=== PATIENT | male | born 1965 ===

== ENCOUNTER 2016-09-30 07:30 | Inpatient (IN) | payer MEDICARE, BC ==
[2016-09-30 07:35] VITALS: BMI 28.1
--- NOTE | 2016-09-30 07:38 | ED PDOC ---
Arrival/HPI - General Time Seen by Provider: 09/30/16 07:31 Historian: Patient - History of Present Illness Narrative History of Present Illness (Text): 09/30/16 07:44 The patient is a 50 year old male, whose past medical history includes coronary artery disease with stent placement, CABG, AICD placement, COPD, hypertension, PUD, Anxiety, and opioid dependency, who is currently on the heart transplant, is brought into the emergency department via EMS for complaints of chest pain. Patient reports the chest pain is chronic but this morning it was worse than usually so he took his Morphine, but it brought him no relief so he decided to come to the emergency department. Pain is associated with nausea and vomiting. 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 Patient denies any shortness of breath, or other complaints at this time. Patient is requesting 4mg Dilaudid. Rn Clinical Documentation: Dr. Paris Time/Duration: Other (acute on chronic pain) Symptom Onset: Gradual Symptom Course: Worsening Quality: Other Activities at Onset: Rest Modifying Factors (Text): no relief with morphine Context: Home Associated Symptoms (Text): nausea and vomiting Past Medical History - Provider Review Nursing Documentation Reviewed: Yes - Infectious Disease Hx of Infectious Diseases: None - Tetanus Immunization Tetanus Immunization: Unknown - Cardiac Hx Cardiac Disorders: Yes Hx Angina: Yes Hx Hypertension: Yes Hx Internal Defibrillator: Yes (06/2013 aicd) Hx Pacemaker: Yes (06/2013 aicd) Other/Comment: mi /6 months ago,cabg 1 vessel 2009 - Pulmonary Hx Bronchitis: Yes Hx Chronic Obstructive Pulmonary Disease (COPD): Yes - Neurological Hx Neurological Disorder: No - HEENT Hx HEENT Disorder: Yes (sinus problem) - Renal Hx Renal Disorder: No - Endocrine/Metabolic Hx Endocrine Disorders: No - Hematological/Oncological Hx Blood Disorders: No - Integumentary Hx Dermatological Disorder: No - Musculoskeletal/Rheumatological Hx Back Pain: Yes (chronic) Hx Falls: Yes Hx Herniated Disk: Yes (lower back) Other/Comment: laminectomy 2011 - Gastrointestinal Hx Gastroesophageal Reflux: Yes - Genitourinary/Gynecological Hx Genitourinary Disorders: No - Psychiatric Hx Psychophysiologic Disorder: Yes Hx Anxiety: Yes Hx Bipolar Disorder: Yes Hx Substance Use: No - Surgical History Hx Cardiac Catheterization: Yes (28 or 30 pt and lost count) Hx Coronary Stent: Yes (x2) - Anesthesia Hx Anesthesia: Yes Hx Anesthesia Reactions: No - Suicidal Assessment Feels Threatened In Home Enviroment: No Family/Social History - Physician Review Nursing Documentation Reviewed: Yes Family/Social History: Unknown Family HX Smoking Status: Never Smoked Hx Alcohol Use: No Hx Substance Use: No Allergies/Home Meds Allergies/Adverse Reactions: Allergies No Known Allergies Allergy (Verified 03/07/16 09:34) Home Medications: Home Meds Medication Instructions Recorded Confirmed Aspirin [Ecotrin] 81 mg PO DAILY 06/10/16 09/30/16 Ezetimibe [Zetia] 10 mg PO DAILY 06/10/16 09/30/16 Fenofibrate Nanocrystallized 145 mg PO DAILY 06/10/16 09/30/16 [Tricor] Furosemide [Lasix] 20 mg PO BID 06/10/16 09/30/16 HYDROmorphone [Dilaudid] 4 mg PO Q4H 06/10/16 09/30/16 Morphine [Morphine Immediate 30 mg PO BID 06/10/16 09/30/16 Release Tab] Nitroglycerin [Nitrostat] 0.4 mg SL PRN PRN 06/10/16 09/30/16 diaZEpam [Valium] 5 mg PO Q12 06/10/16 09/30/16 Docusate [Colace] 100 mg PO TID 09/30/16 09/30/16 Metoprolol Tartrate [Lopressor] 100 mg PO BID 09/30/16 09/30/16 Review of Systems - Physician Review All systems were reviewed & negative as marked: Yes - Review of Systems Constitutional: absent: Fevers Respiratory: absent: SOB Cardiovascular: Chest Pain Gastrointestinal: Nausea, Vomiting. absent: Abdominal Pain Physical Exam - Physical Exam Narrative Physical Exam (Text): Constitutional: Patient is constantly moaning. Head: Normocephalic. Atraumatic. Eyes: PERRL. ENT: Moist mucous membranes. Neck: Supple. Cardiovascular: Mildly tachycardic rate. Chest: No tenderness. Left chest implantation. Respiratory: Clear to auscultation bilaterally. GI: Soft. Nontender. Nondistended. Back: No CVA tenderness. Musculoskeletal: No tenderness or swelling of extremities. Skin: No rash. Neurologic: Alert, no focal deficit. Vital Signs Reviewed: Yes Vital Signs Temp Pulse Resp BP Pulse Ox 09/30/16 07:35 97.6 F 217 H 22 137/99 H 99 Temperature: Afebrile Blood Pressure: Hypertensive Pulse: Tachycardic Respiratory Rate: Normal Appearance: Positive for: Well-Appearing, Non-Toxic, Comfortable Pain Distress: None Mental Status: Positive for: Alert and Oriented X 3 Medical Decision Making ED Course and Treatment: 09/30/16 07:36 Impression: A 50 year old male with an extensive cardiac history complaining of exacerbation chronic chest pain. Triage vital signs in error, HR not 217. Differential Diagnosis include but are not limited to: ACS, CHF, Chest wall pain Plan: -- EKG -- Chest X-ray -- Labs -- Reassess and disposition Prior Visits: Notes and results from previous visits were reviewed. The patient last presented to the emergency department on 06/10/16 for evaluation of chest pain. Progress Notes: EKG: Ordered, reviewed, and independently interpreted the EKG. Rate : 104 BPM Rhythm : Sinus Rhythm Interpretation : No ST-segment elevations or depressions Comparison : No change from previous EKG on 06/11/[address] Paris pagealysia. 09/30/16 08:14 Patient and family constantly asking for pain medication. I have explained to them that I will discussed it with Dr. Paris, but will give Aspirin and Zofran for now. 09/30/16 08:18 Chest X-ray Impression: As read by emergency department physician, No acute findings. 09/30/16 08:[address] Paris, who is aware. He states to admit the patient to [facility] under the hospitalist service. He recommends initial dose of 2mg dilaudid in ER and states he will order remainder of medication. I have discussed the results and plan with the patient, who expresses understanding. Patient given the opportunity to ask question, all questions were answered and there is agreement with the plan to be admitted to the hospital. Dr. Sari moon. 09/30/16 08:[address] Guo, who is aware and agrees with the plan. She accepts the patient to Telemetry under her services. - Lab Interpretations Lab Results: 09/30/16 07:55 09/30/16 07:55 Lab Results 09/30/16 07:55: Sodium 143, Potassium 4.2, Chloride 104, Carbon Dioxide 26, Anion Gap 17, BUN 18, Creatinine 0.9, Est GFR ( Amer) > 60, Est GFR (Non- Af Amer) > 60, Random Glucose 124 H, Calcium 9.5, Total Bilirubin 0.8, AST 25, ALT 23, Alkaline Phosphatase 50, Total Creatine Kinase 81, Troponin I < 0.01 D , NT-Pro-B Natriuret Pep 331, Total Protein 8.0, Albumin 4.8, Globulin 3.2, Albumin/Globulin Ratio 1.5 09/30/16 07:55: PT 10.6, INR 0.98, APTT 26.8 09/30/16 07:55: WBC 5.6 D, RBC 4.95, Hgb 13.5 L, Hct 40.3 L, MCV 81.4, MCH 27.3 , MCHC 33.5, RDW 14.6 H, Plt Count 291, MPV 9.2, Gran % 53.9, Lymph % (Auto) 33.7, [place] % (Auto) 8.7 H, Eos % (Auto) 3.2, Baso % (Auto) 0.5, Gran # 3.03, Lymph # 1.9, [place] # 0.5, Eos # 0.2, Baso # 0.03 I have reviewed the lab results: Yes - RAD Interpretation Radiology Orders: 09/30/16 07:50 CHEST PORTABLE [RAD] Stat - Medication Orders Current Medication Orders: Discontinued Medications Aspirin (Aspirin) 325 mg PO STAT STA Stop: 09/30/16 08:15 Last Admin: 09/30/16 08:29 Dose: 325 mg Hydromorphone HCl (Dilaudid) 2 mg IVP STAT STA Stop: 09/30/16 08:22 Last Admin: 09/30/16 08:29 Dose: 2 mg Ondansetron HCl (Zofran Inj) 8 mg IVP STAT STA Stop: 09/30/16 08:15 Last Admin: 09/30/16 08:29 Dose: 8 mg - Scribe Statement The provider has reviewed the documentation as recorded by the Annalise May Provider Anmolibe Attestation: All medical record entries made by the Annalise were at my direction and personally dictated by me. I have reviewed the chart and agree that the record accurately reflects my personal performance of the history, physical exam, medical decision making, and the department course for this patient. I have also personally directed, reviewed, and agree with the discharge instructions and disposition. Disposition/Present on Arrival - Present on Arrival Any Indicators Present on Arrival: No History of DVT/PE: No History of Uncontrolled Diabetes: No Urinary Catheter: No History Surgical Site Infection Following: None - Disposition Have Diagnosis and Disposition been Completed?: Yes Diagnosis: Chest pain Disposition: HOSPITALIZED Disposition Time: 08:20 Patient Plan: Admission, Telemetry Condition: GUARDED
[2016-09-30 08:03] LABS: ADD MANUAL DIFF? NO
[2016-09-30 08:06] LABS: BASO # 0.03 K/mm3 (0.0-2.0); BASO % 0.5 % (0.0-3.0); EOS # 0.2 (0.0-0.7); EOS % 3.2 % (1.5-5.0); GRAN # 3.03 (1.4-6.5); GRAN % 53.9 % (50.0-68.0); HEMATOCRIT 40.3 % (42.0-52.0); LYMPH # 1.9 (1.2-3.4); LYMPH % 33.7 % (22.0-35.0); MEAN CELL VOLUME 81.4 fL (80.0-105.0); MEAN CORPUSCULAR HEMOGLOBIN 27.3 pg (25.0-35.0); MEAN CORPUSCULAR HGB CONC 33.5 g/dl (31.0-37.0); MEAN PLATELET VOLUME 9.2 fl (7.0-11.0); MONO # 0.5 (0.1-0.6); MONO % 8.7 % (1.0-6.0); PLATELET COUNT 291 10^3/uL (120.0-450.0); RED CELL DISTRIBUTION WIDTH 14.6 % (11.5-14.5); WHITE BLOOD COUNT 5.6 10^3/ul (4.5-11.0)
[2016-09-30 08:15] LABS: ALB/GLOB RATIO 1.5 (1.1-1.8); ALKALINE PHOSPHATASE 50 U/L (38-133); ALT/SGPT 23 U/L (7-56); AST/SGOT 25 U/L (15-59); BILIRUBIN,TOTAL 0.8 mg/dL (0.2-1.3); BLOOD UREA NITROGEN 18 mg/dL (7-21); CALCIUM 9.5 mg/dL (8.4-10.5); CARBON DIOXIDE 26 mmol/L (21-33); CHLORIDE 104 mmol/L (98-107); GFR AFRICAN-AMERICAN > 60; GLUCOSE,RANDOM 124 mg/dL (70-110); POTASSIUM 4.2 mmol/L (3.6-5.0); SODIUM 143 mmol/L (132-148)
[2016-09-30 08:16] LABS: INR 0.98 (0.93-1.08); PARTIAL THROMBOPLASTIN TIME 26.8 Seconds (23.7-30.8)
[2016-09-30] MEDS ORDERED: HYDROmorphone 2 mg/ml ISec IVP STA (08:21)
[2016-09-30 08:28] LABS: TROPONIN I < 0.01 ng/mL
--- NOTE | 2016-09-30 08:54 | RAD ---
HISTORY: cp COMPARISON: 06/10/2016 FINDINGS: LUNGS: No active pulmonary disease. PLEURA: No significant pleural effusion identified, no pneumothorax apparent. CARDIOVASCULAR: Normal. OSSEOUS STRUCTURES: Sternal wires VISUALIZED UPPER ABDOMEN: Normal. OTHER FINDINGS: Pacemaker IMPRESSION: No active disease.
[2016-09-30] MEDS: Pantoprazole 40 mg EC Tab PO SCH (10:09)
[2016-09-30] MEDS: Morphine 30 mg SR Tab PO SCH ×2 (10:09→23:06)
[2016-09-30] MEDS: Metoprolol Succinate 100 mg XL Tab PO SCH ×2 (10:09→17:17)
--- NOTE | 2016-09-30 10:18 | CON ---
DATE: 09/30/2016 INDICATIONS: Chest pain, back pain, dyspnea, flank pain. HISTORY OF PRESENT ILLNESS: This is a 50-year-old man well known to me with severe cardiac problems, chronic pain including back pain, chest pain and recently flank pain with worsening chest pain, dysp amy on exertion, inability to perform even minimal activities without recurring symptoms. He is on a cardiac transplant list at [place]. He came in because of continuing pain and need for IV Dilau did. In addition to back pain, chest pain and flank pain, he has dyspnea on exertion, orthopnea, fatigue. No palpitations, syncope, vertigo, edema, claudication, fever, chills, cough, sputum production, hem optysis, abdominal pain, nausea, vomiting, diarrhea, constipation, melena. He has had recent vomitin g. He has had mild head trauma due to a fall recently with a scalp bruise. PAST MEDICAL HISTORY: Complex. He has known severe coronary artery disease and has undergone multip le coronary interventions, predominantly at [facility]. He has had myocardial infarc tion, severe LV dysfunction, ICD implantation which is followed at [place]. He has severe discog enic disease and chronic back pain which is often indistinguishable from chest pain, both are very se jesica. He is seen by Dr. Bunn and also by pain specialists at [place]. He has a history of hy perlipidemia, peptic ulcer disease, gastric ulcer. There is no history of rheumatic fever, recent co ngestive heart failure, gout, diabetes, stroke, TIA. MEDICATIONS: At this time include Ranexa, Colace, Dilaudid p.o., aspirin, Effient, Imdur, Lasix, Lip itor, metoprolol, MiraLax, morphine sulfate extended release, Protonix, Tricor, Valium, lisinopril an d Zetia. ALLERGIES: There are no known medication allergies. 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 He lives at home with his and family. Rafa beasley is a nonsmoker. He does not drink alcohol. FAMILY HISTORY: Noncontributory. REVIEW OF SYSTEMS: A 10-point review of systems is otherwise unremarkable except as noted above. PHYSICAL EXAMINATION: GENERAL: He is a well-developed, ill-appearing male complaining of diffuse body aches, chest pain, s itting on a stretcher in the Emergency Room accompanied by his . VITAL SIGNS: He is in sinus rhythm at 104 beats per minute. He is afebrile. Blood pressure 137/99, respirations 22, O2 sat 99% on room air. HEENT: Reveals no neck vein distention, thyromegaly, or carotid bruits. Mucous membranes are moist. Conjunctivae are pink. NECK: Supple. CHEST: Lung fontanez clear. HEART: Revealed normal first and second heart sounds. There is a soft systolic murmur along the lef t sternal border. ABDOMEN: Soft. Bowel sounds are present. No mass, organomegaly, tenderness, rebound, guarding, CVA tenderness or palpable abdominal aortic aneurysm. EXTREMITIES: Revealed no cyanosis, clubbing, or edema. NEUROLOGIC: He is awake, alert and oriented. SKIN: Warm and dry. No rash or cellulitis. PSYCHIATRIC: Normal as to mood and affect. LABORATORY AND IMAGING: An EKG demonstrates sinus tachycardia with nonspecific ST-wave changes. A c hest x-ray is a portable study. It reveals no active disease. Hemoglobin 13.5, hematocrit 40.3, whi te count normal, platelet count normal. PT, INR, PTT normal. Electrolytes, BUN, creatinine, blood s ugar normal with a blood sugar of 124. Liver function tests normal. Troponin less than 0.01. BNP 3 31. IMPRESSION: The patient is a 50-year-old man with chronic pain syndrome, severe coronary artery dise ase, multiple coronary interventions, myocardial infarctions, left ventricular dysfunction, implantab le defibrillator with discogenic disease, status post remote laminectomy with severe back pain, also with flank pain, admitted with failure to thrive at home with severe pain, fatigue, dyspnea on exerti on and inability to participate in any activities of living. At this time, we will give him IV Dilaudid to control his pain. We will get serial EKGs and enzymes to rule out myocardial infarction. He is on the transplant list at [facility] where he also gets coronary interventions and electrophysiology followup. I will make arrangements for tra nsfer to Dr. Mike Mcnamara if he will accept him for reevaluation and cardiac transplantation or other c ardiac intervention as indicated. At this time, I will continue his usual medications. I have discu ssed this with the patient and his at length. They are in agreement. I will follow along with you. I will make additional recommendations based on his clinical course. Kvng Paris MD cc: [id number] TT: 09/30/2016 10:18:18 Confirmation # [id number] Dictation # [id number] tn
--- NOTE | 2016-09-30 10:31 | CT ---
PROCEDURE: CT HEAD WITHOUT CONTRAST. HISTORY: head trauma COMPARISON: None available. TECHNIQUE: Axial computed tomography images were obtained through the head/brain without intravenous contrast. Radiation dose: Total exam DLP = 677 mGy-cm. This CT exam was performed using one or more of the following dose reduction techniques: Automated exposure control, adjustment of the mA and/or kV according to patient size, and/or use of iterative reconstruction technique. FINDINGS: HEMORRHAGE: No intracranial hemorrhage. BRAIN: No mass effect or edema. No atrophy or chronic microvascular ischemic changes. VENTRICLES: Unremarkable. No hydrocephalus. CALVARIUM: Unremarkable. PARANASAL SINUSES: Unremarkable as visualized. No significant inflammatory changes. MASTOID AIR CELLS: Unremarkable as visualized. No inflammatory changes. OTHER FINDINGS: None. IMPRESSION: No acute findings
[2016-09-30] MEDS ORDERED: HYDROmorphone 2 mg/ml ISec ONE (10:38)
[2016-09-30] MEDS: HYDROmorphone 2 mg/ml ISec IVP PRN ×5 (10:42→20:31)
[2016-09-30 11:04] LABS: URINE APPEARANCE CLEAR (CLEAR); URINE BILIRUBIN NEGATIVE (NEGATIVE); URINE BLOOD NEGATIVE (NEGATIVE); URINE COLOR YELLOW (YELLOW); URINE GLUCOSE (UA) NEGATIVE (NEGATIVE); URINE KETONE NEGATIVE (NEGATIVE); URINE LEUKOCYTE ESTERASE NEGATIVE Leu/uL (NEGATIVE); URINE PROTEIN NEGATIVE mg/dL (<30 mg/dL); URINE UROBILINOGEN 0.2 E.U./dL (<1 E.U./dL)
--- NOTE | 2016-09-30 12:14 | CP.PCM.HP ---
<Herson Morales - Last Filed: 09/30/16 16:44> History of Present Illness - History of Present Illness History of Present Illness: 50 y/o M with PMH of severe CAD with stent placement and CABG, AICD placement, COPD, HTN, PUD, anxiety, and opioid dependency presents to the ED with complaints of chest pain and SOB on exertion. Patient reports becoming short of breath even with simple body movements (i.e. raising his arms). Patient states he is on cardiac transplant list at [facility]. Patient states his chronic chest pain is something he has dealt with for a while, however the pain these pst few days have been quite severe and he decided to report to ED. At time of examination patient denied palpitations, fever, chills. nausea/ vomiting. Patient has a skin abrasion along his scalp, when questioned about it he states he fell and hit his head along wall. Patient denies headache/dizziness, changes in vision. As per patient, Dr. Paris has recommended he be transferred to [facility] for further work up. Present on Admission - Present on Admission Any Indicators Present on Admission: No Review of Systems - Review of Systems Review of Systems: 12 pt ROS obtained, unremarkable; except as stated in HPI Past Patient History - Infectious Disease Hx of Infectious Diseases: None - Tetanus Immunizations Tetanus Immunization: Unknown - Past Social History Smoking Status: Never Smoked - CARDIAC Hx Cardiac Disorders: Yes Hx Angina: Yes Hx Hypertension: Yes Hx Internal Defibrillator: Yes (06/2013 aicd) Hx Pacemaker: Yes (06/2013 aicd) Other/Comment: mi /6 months ago,cabg 1 vessel 2009 - PULMONARY Hx Bronchitis: Yes Hx Chronic Obstructive Pulmonary Disease (COPD): Yes - NEUROLOGICAL Hx Neurological Disorder: No - HEENT Hx HEENT Problems: Yes (sinus problem) - RENAL Hx Chronic Kidney Disease: No - ENDOCRINE/METABOLIC Hx Endocrine Disorders: No - HEMATOLOGICAL/ONCOLOGICAL Hx Blood Disorders: No - INTEGUMENTARY Hx Dermatological Problems: No - MUSCULOSKELETAL/RHEUMATOLOGICAL Hx Back Pain: Yes (chronic) Hx Falls: Yes Hx Herniated Disk: Yes (lower back) Other/Comment: laminectomy 2011 - GASTROINTESTINAL Hx Gastroesophageal Reflux: Yes - GENITOURINARY/GYNECOLOGICAL Hx Genitourinary Disorders: No - PSYCHIATRIC Hx Psychophysiologic Disorder: Yes Hx Anxiety: Yes Hx Bipolar Disorder: Yes Hx Substance Use: No - SURGICAL HISTORY Hx Cardiac Catheterization: Yes (28 or 30 pt and lost count) Hx Coronary Stent: Yes (x2) - ANESTHESIA Hx Anesthesia: Yes Hx Anesthesia Reactions: No Meds Allergies/Adverse Reactions: Allergies Allergy/AdvReac Type Severity Reaction Status Date / Time No Known Allergies Allergy Verified 03/07/16 09:34 Physical Exam - Constitutional Appears: No Acute Distress, Chronically Ill - Head Exam Head Exam: NORMOCEPHALIC - Eye Exam Eye Exam: Normal appearance - ENT Exam ENT Exam: Mucous Membranes Moist - Respiratory Exam Respiratory Exam: absent: Rhonchi, Wheezes - Cardiovascular Exam Cardiovascular Exam: +S1, +S2, Systolic Murmur - GI/Abdominal Exam GI & Abdominal Exam: Soft. absent: Distended, Firm, Guarding, Tenderness - Extremities Exam Extremities exam: Negative for: calf tenderness, pedal edema - Neurological Exam Neurological exam: Alert, Oriented x3 - Psychiatric Exam Psychiatric exam: Normal Mood - Skin Skin Exam: Intact, Warm Results - Vital Signs Recent Vital Signs: Last Vital Signs Temp 98 F 09/30/16 11:06 Pulse 68 09/30/16 11:06 Resp 18 09/30/16 11:06 BP 138/92 H 09/30/16 11:06 Pulse Ox 98 09/30/16 11:06 - Labs Result Diagrams: 09/30/16 07:55 09/30/16 07:55 Labs: Laboratory Results - last 24 hr 09/30/16 09/30/16 10:50 10:50 Urine Color Yellow Urine Appearance Clear Urine pH 7.0 Ur Specific Anderson 1.015 Urine Protein Negative Urine Glucose (UA) Negative Urine Ketones Negative Urine Blood Negative Urine Nitrate Negative Urine Bilirubin Negative Urine Urobilinogen 0.2 Ur Leukocyte Esterase Negative Urine Opiates Screen Positive H Urine Methadone Screen Negative Ur Barbiturates Screen Negative Ur Phencyclidine Scrn Negative Ur Amphetamines Screen Negative U Benzodiazepines Scrn Positive H U Oth Cocaine Metabols Negative U Cannabinoids Screen Negative Assessment & Plan - Assessment and Plan (Free Text) Assessment: 50M presents to the ED with complaints of chest pain and shortness of breath on exertion, with scalp abrasion 2/2 to fall at home. Plan: 1. Chest pain, chronic -EKG -CXR: No acute findings -Serial troponins: x1 negative -Dilaudid -Patient to be transferred to [facility] for further work up 2. Head trauma, Scalp abrasion -F/u MRI 3. HTN -Lisinopril -Isosorbide -Metoprolol -Lasix 4. hyperlipidemia -Lipitor -fenofibrate -ezetimibe 5. Chronic back pain -Morphine 30mg PO 6. DVT/GI ppx -SCDs -Lovenox -Protonix Assesment and plan discussed with attending <Linda Guo MD - Last Filed: 10/01/16 16:32> Results - Vital Signs Recent Vital Signs: Last Vital Signs Temp 98.4 F 10/01/16 12:00 Pulse 74 10/01/16 12:00 Resp 20 10/01/16 12:00 BP 103/69 10/01/16 12:00 Pulse Ox 97 10/01/16 06:00 - Labs Result Diagrams: 10/01/16 05:50 10/01/16 05:50 Labs: Laboratory Results - last 24 hr 09/30/16 10/01/16 10/01/16 16:54 05:50 05:50 WBC 7.6 D RBC 4.98 Hgb 13.4 L Hct 40.6 L MCV 81.5 MCH 26.9 MCHC 33.0 RDW 14.7 H Plt Count 267 MPV 9.3 Sodium Potassium Chloride Carbon Dioxide Anion Gap BUN Creatinine Est GFR ( Amer) Est GFR (Non-Af Amer) Random Glucose Calcium Troponin I < 0.01 0.01 10/01/16 05:50 WBC RBC Hgb Hct MCV MCH MCHC RDW Plt Count MPV Sodium 138 Potassium 3.7 Chloride 101 Carbon Dioxide 25 Anion Gap 16 BUN 20 Creatinine 1.0 Est GFR ( Amer) > 60 Est GFR (Non-Af Amer) > 60 Random Glucose 78 Calcium 9.3 Troponin I Attending/Attestation - Attestation I have personally seen and examined this patient.: Yes I have fully participated in the care of the patient.: Yes I have reviewed all pertinent clinical information: Yes Notes (Text): 10/01/16 16:29 Patient was seen and examined with medical reimbursement manager .Agreed with resident assessment and plan. 50 y/o M with PMH of severe CAD with stent placement and CABG, AICD placement, COPD, HTN, PUD, anxiety, and opioid dependency presents to the ED with complaints of chest pain and SOB on exertion.Patient is on heart transplant list , and he is on maximum anti anginal therapy.His EKG is negative for new ischemic changes, troponins are normal , cardiology is planning for transfer patient to [facility].We will get serial cardiac marker, he has been started on IV hydromorphone by cardiology.He has history of fall athome.CT head is negative. Management plan was discussed in detail with patient Education was provided.
[2016-09-30] MEDS ORDERED: Pneumococcal 23-Valent Vaccine IM ONE (13:15)
[2016-09-30] MEDS: guaiFENesin 600 mg ER Tab PO SCH (17:17)
--- NOTE | 2016-10-01 01:42 | CARD ---
APPROVED REPORT EKG Measurement Heart [id number] AL [id number] <Conclusion> Sinus tachycardia Cannot rule out Inferior infarct, age undetermined Abnormal ECG
[2016-10-01] MEDS: HYDROmorphone 2 mg/ml ISec IVP PRN ×8 (05:10→23:39)
[2016-10-01 07:51] LABS: HEMATOCRIT 40.6 % (42.0-52.0); MEAN CELL VOLUME 81.5 fL (80.0-105.0); MEAN CORPUSCULAR HEMOGLOBIN 26.9 pg (25.0-35.0); MEAN PLATELET VOLUME 9.3 fl (7.0-11.0); RED CELL DISTRIBUTION WIDTH 14.7 % (11.5-14.5); WHITE BLOOD COUNT 7.6 10^3/ul (4.5-11.0)
[2016-10-01 07:53] LABS: BLOOD UREA NITROGEN 20 mg/dL (7-21); CALCIUM 9.3 mg/dL (8.4-10.5); CARBON DIOXIDE 25 mmol/L (21-33); CHLORIDE 101 mmol/L (98-107); GFR AFRICAN-AMERICAN > 60; GLUCOSE,RANDOM 78 mg/dL (70-110); POTASSIUM 3.7 mmol/L (3.6-5.0); SODIUM 138 mmol/L (132-148)
[2016-10-01] MEDS: guaiFENesin 600 mg ER Tab PO SCH ×2 (10:11→18:24)
[2016-10-01] MEDS: Enoxaparin 40 mg Syringe SC SCH (10:12)
[2016-10-01] MEDS: Pantoprazole 40 mg EC Tab PO SCH (10:12)
[2016-10-01] MEDS: Morphine 30 mg SR Tab PO SCH ×2 (10:14→23:18)
[2016-10-01] MEDS: Metoprolol Succinate 100 mg XL Tab PO SCH ×2 (10:17→18:25)
--- NOTE | 2016-10-01 11:20 | PN ---
DATE: 10/01/2016 SUBJECTIVE: The patient is seen lying in bed on telemetry. He continues to have intermittent rest c hest pain. He awaits transfer to [facility] for further evaluation. He continues to have intractable pain. MEDICATIONS: Include aspirin, Dilaudid, Effient 10 mg daily, Imdur 60 mg daily, Lasix 20 mg b.i.d., Lipitor 80 mg b.i.d., Lovenox, morphine sulfate, Mucinex, Protonix, Toprol-XL 100 mg b.i.d., Tricor 1 45 mg daily, Valium, Zestril 10 mg daily, Zetia 10 mg daily. OBJECTIVE: GENERAL: He is a middle-aged man who appears chronically ill. VITAL SIGNS: His blood pressure is 120/80 with a pulse of 76 and sinus, respirations are 14. He is afebrile. HEENT: No JVD. CHEST: A few scattered rhonchi. HEART: PMI displaced laterally with soft tones noted. ABDOMEN: Soft, nontender, normoactive bowel sounds. EXTREMITIES: No edema. DIAGNOSTIC DATA: Cardiac enzymes are negative. Potassium 3.7, BUN and creatinine are 20 and 1.0. H emoglobin and hematocrit are 13.4 and 40.6, white count 7.6, platelet count 267,000. IMPRESSION: 1. Chronic intractable angina despite prior bypass surgery and multiple cardiac interventions. 2. Severe left ventricular dysfunction. 3. Status post implantable cardioverter-defibrillator implant. 4. Cervical and lumbar disk disease. RECOMMENDATIONS: His current medications will continue. Analgesic therapy will be continued for now as this appears to be the only thing that controls his pain with any effectiveness. [facility] has been contacted for possible transfer and further evaluation. Ultimately transplant or LVAD placemen t may be his best option. We will continue to follow along and make further recommendations as appro priate. Bertram Uribe MD cc: [id number] TT: 10/01/2016 11:19:18 Confirmation # [id number] Dictation # [id number] mn
--- NOTE | 2016-10-01 13:04 | CP.PCM.PN ---
<Herson Morales - Last Filed: 10/01/16 13:58> Subjective - Date & Time of Evaluation Date of Evaluation: 10/01/16 Time of Evaluation: 07:30 - Subjective Subjective: Patient seen and examined. No acute events over night. Patient still complaining of chronic chest pain. Denies headche/dizziness, n/v, abdominal pain , dysuria. Objective - Vital Signs/Intake and Output Vital Signs (last 24 hours): Temp Pulse Resp BP Pulse Ox 98 F 78 18 120/80 97 10/01/16 06:00 10/01/16 10:17 10/01/16 06:00 10/01/16 10:17 10/01/16 06:00 Intake and Output: 10/01/16 10/01/16 06:59 18:59 Intake Total 120 Output Total 350 Balance -230 - Medications Medications: Current Medications Aspirin (Aspirin Chewable) 81 mg PO DAILY [facility] Last Admin: 10/01/16 10:12 Dose: 81 mg Atorvastatin Calcium (Lipitor) 80 mg PO DIN [facility] Last Admin: 09/30/16 17:17 Dose: 80 mg Diazepam (Valium) 5 mg PO BID PRN; Protocol PRN Reason: Pain, severe (8-10) Stop: 10/02/16 10:00 Docusate Sodium (Colace) 100 mg PO TID [facility] Last Admin: 10/01/16 10:12 Dose: 100 mg Ezetimibe (Zetia) 10 mg PO DAILY [facility] Last Admin: 09/30/16 10:42 Dose: 10 mg Enoxaparin Sodium (Lovenox) 40 mg SC DAILY [facility] PRN Reason: Protocol Last Admin: 10/01/16 10:12 Dose: 40 mg Fenofibrate (Tricor) 145 mg PO DAILY [facility] Last Admin: 10/01/16 10:12 Dose: 145 mg Furosemide (Lasix) 20 mg PO BID [facility] Last Admin: 10/01/16 10:12 Dose: 20 mg Guaifenesin (Mucinex La) 600 mg PO BID [facility] Last Admin: 10/01/16 10:11 Dose: 600 mg Hydromorphone HCl (Dilaudid) 2 mg IVP Q2H PRN PRN Reason: Pain, severe (8-10) Last Admin: 10/01/16 12:50 Dose: 2 mg Hydromorphone HCl (Dilaudid) 4 mg PO Q4H [facility] Last Admin: 10/01/16 10:18 Dose: Not Given Isosorbide Mononitrate (Imdur) 60 mg PO DAILY [facility] Last Admin: 10/01/16 10:12 Dose: 60 mg Lisinopril (Zestril) 10 mg PO DAILY [facility] Last Admin: 10/01/16 10:14 Dose: 10 mg Metoprolol Succinate (Toprol Xl) 100 mg PO BID [facility] Last Admin: 10/01/16 10:17 Dose: 100 mg Morphine Sulfate (Morphine Extended Release Tab) 30 mg PO Q12 [facility] Last Admin: 10/01/16 10:14 Dose: 30 mg Ondansetron HCl (Zofran Inj) 4 mg IVP Q6H PRN PRN Reason: Nausea/Vomiting Last Admin: 10/01/16 12:48 Dose: 4 mg Pantoprazole Sodium (Protonix Ec Tab) 40 mg PO DAILY [facility] Last Admin: 10/01/16 10:12 Dose: 40 mg Prasugrel (Effient) 10 mg PO DAILY [facility] Last Admin: 10/01/16 10:11 Dose: 10 mg - Labs Labs: 10/01/16 05:50 10/01/16 05:50 PT 10.6 Seconds (9.9-11.8) 09/30/16 07:55 INR 0.98 (0.93-1.08) 09/30/16 07:55 APTT 26.8 Seconds (23.7-30.8) 09/30/16 07:55 - Constitutional Appears: Chronically Ill - Head Exam Head Exam: NORMOCEPHALIC - Eye Exam Eye Exam: Normal appearance - ENT Exam ENT Exam: Mucous Membranes Moist - Respiratory Exam Respiratory Exam: NORMAL BREATHING PATTERN - Cardiovascular Exam Cardiovascular Exam: +S1, +S2. absent: Tachycardia - GI/Abdominal Exam GI & Abdominal Exam: Soft. absent: Distended, Firm, Guarding, Rigid, Tenderness - Neurological Exam Neurological Exam: Alert, Awake, Oriented x3 - Psychiatric Exam Psychiatric exam: Normal Mood - Skin Skin Exam: Dry, Intact, Warm Assessment and Plan - Assessment and Plan (Free Text) Assessment: 50M presents to the ED with complaints of chest pain and shortness of breath on exertion, with scalp abrasion 2/2 to fall at home. Plan: 1. Chest pain, chronic -EKG: Sinus tachycardia -CXR: No acute findings -Serial troponins: x2 negative -Dilaudid -Awaiting transferred to [facility] for further work up 2. Head trauma, Scalp abrasion -F/u MRI- no acute findings 3. HTN -Lisinopril -Isosorbide -Metoprolol -Lasix 4. hyperlipidemia -Lipitor -fenofibrate -ezetimibe 5. Chronic back pain -Morphine 30mg PO 6. DVT/GI ppx -SCDs -Lovenox -Protonix Assesment and plan discussed with attending <Linda Guo MD - Last Filed: 10/01/16 16:36> Objective - Vital Signs/Intake and Output Vital Signs (last 24 hours): Temp Pulse Resp BP Pulse Ox 98.4 F 74 20 103/69 97 10/01/16 12:00 10/01/16 12:00 10/01/16 12:00 10/01/16 12:00 10/01/16 06:00 Intake and Output: 10/01/16 10/01/16 06:59 18:59 Intake Total 120 Output Total 350 Balance -230 - Medications Medications: Current Medications Aspirin (Aspirin Chewable) 81 mg PO DAILY [facility] Last Admin: 10/01/16 10:12 Dose: 81 mg Atorvastatin Calcium (Lipitor) 80 mg PO DIN [facility] Last Admin: 09/30/16 17:17 Dose: 80 mg Diazepam (Valium) 5 mg PO BID PRN; Protocol PRN Reason: Pain, severe (8-10) Stop: 10/02/16 10:00 Docusate Sodium (Colace) 100 mg PO TID [facility] Last Admin: 10/01/16 14:25 Dose: 100 mg Ezetimibe (Zetia) 10 mg PO DAILY [facility] Last Admin: 10/01/16 14:25 Dose: 10 mg Enoxaparin Sodium (Lovenox) 40 mg SC DAILY [facility] PRN Reason: Protocol Last Admin: 10/01/16 10:12 Dose: 40 mg Fenofibrate (Tricor) 145 mg PO DAILY [facility] Last Admin: 10/01/16 10:12 Dose: 145 mg Furosemide (Lasix) 20 mg PO BID [facility] Last Admin: 10/01/16 10:12 Dose: 20 mg Guaifenesin (Mucinex La) 600 mg PO BID [facility] Last Admin: 10/01/16 10:11 Dose: 600 mg Hydromorphone HCl (Dilaudid) 2 mg IVP Q2H PRN PRN Reason: Pain, severe (8-10) Last Admin: 10/01/16 12:50 Dose: 2 mg Hydromorphone HCl (Dilaudid) 4 mg PO Q4H [facility] Last Admin: 10/01/16 14:26 Dose: Not Given Isosorbide Mononitrate (Imdur) 60 mg PO DAILY [facility] Last Admin: 10/01/16 10:12 Dose: 60 mg Lisinopril (Zestril) 10 mg PO DAILY [facility] Last Admin: 10/01/16 10:14 Dose: 10 mg Metoprolol Succinate (Toprol Xl) 100 mg PO BID [facility] Last Admin: 10/01/16 10:17 Dose: 100 mg Morphine Sulfate (Morphine Extended Release Tab) 30 mg PO Q12 [facility] Last Admin: 10/01/16 10:14 Dose: 30 mg Ondansetron HCl (Zofran Inj) 4 mg IVP Q6H PRN PRN Reason: Nausea/Vomiting Last Admin: 10/01/16 12:48 Dose: 4 mg Pantoprazole Sodium (Protonix Ec Tab) 40 mg PO DAILY [facility] Last Admin: 10/01/16 10:12 Dose: 40 mg Prasugrel (Effient) 10 mg PO DAILY [facility] Last Admin: 10/01/16 10:11 Dose: 10 mg - Labs Labs: 10/01/16 05:50 10/01/16 05:50 PT 10.6 Seconds (9.9-11.8) 09/30/16 07:55 INR 0.98 (0.93-1.08) 09/30/16 07:55 APTT 26.8 Seconds (23.7-30.8) 09/30/16 07:55 Attending/Attestation - Attestation I have personally seen and examined this patient.: Yes I have fully participated in the care of the patient.: Yes I have reviewed all pertinent clinical information, including history, physical exam and plan: Yes Notes (Text): 10/01/16 16:33 Patient was seen and examined with medical office rep .Agreed with resident assessment and plan. 50 yrs old Male with PMH of severe CAD with stent placement and CABG, AICD placement, COPD, HTN, PUD, anxiety, and opioid dependency presents to the ED with complaints of chest pain and SOB on exertion.Patient is on heart transplant list, and he is on maximum anti anginal therapy.His EKG is negative for new ischemic changes, serial troponins are normal.Patient is still having lot of chest pain, on IV hydromorphone, awaiting for bed at [facility]. Management plan was discussed in detail with patient Education was provided.
[2016-10-02] MEDS: HYDROmorphone 2 mg/ml ISec IVP PRN ×7 (04:22→21:02)
[2016-10-02 06:04] VITALS: O2SAT 98
--- NOTE | 2016-10-02 07:26 | CP.PCM.PN ---
Subjective - Date & Time of Evaluation Date of Evaluation: 10/02/16 Time of Evaluation: 07:00 - Subjective Subjective: Stable on 2R. Still CP but sedated now. Fatigue and weakness. No appetite. V/S noted PE: Lungs: clear Cor.: S1S2 Abd.: soft Ext.: no edema Neuro.: sedated I/O= 480/550 Urine C+S NG Labs noted: trops x3 neg. Objective - Vital Signs/Intake and Output Vital Signs (last 24 hours): Temp Pulse Resp BP Pulse Ox 98.7 F 86 19 101/71 98 10/02/16 06:00 10/02/16 06:00 10/02/16 06:00 10/02/16 06:00 10/02/16 06:00 Intake and Output: 10/02/16 10/02/16 06:59 18:59 Intake Total 360 Output Total 200 Balance 160 - Medications Medications: Current Medications Aspirin (Aspirin Chewable) 81 mg PO DAILY [facility] Last Admin: 10/01/16 10:12 Dose: 81 mg Atorvastatin Calcium (Lipitor) 80 mg PO DIN [facility] Last Admin: 10/01/16 18:25 Dose: 80 mg Diazepam (Valium) 5 mg PO BID PRN; Protocol PRN Reason: Pain, severe (8-10) Stop: 10/02/16 10:00 Docusate Sodium (Colace) 100 mg PO TID [facility] Last Admin: 10/01/16 18:24 Dose: 100 mg Ezetimibe (Zetia) 10 mg PO DAILY [facility] Last Admin: 10/01/16 14:25 Dose: 10 mg Enoxaparin Sodium (Lovenox) 40 mg SC DAILY [facility] PRN Reason: Protocol Last Admin: 10/01/16 10:12 Dose: 40 mg Fenofibrate (Tricor) 145 mg PO DAILY [facility] Last Admin: 10/01/16 10:12 Dose: 145 mg Furosemide (Lasix) 20 mg PO BID [facility] Last Admin: 10/01/16 18:24 Dose: 20 mg Guaifenesin (Mucinex La) 600 mg PO BID [facility] Last Admin: 10/01/16 18:24 Dose: 600 mg Hydromorphone HCl (Dilaudid) 2 mg IVP Q2H PRN PRN Reason: Pain, severe (8-10) Last Admin: 10/02/16 04:22 Dose: 2 mg Hydromorphone HCl (Dilaudid) 4 mg PO Q4H [facility] Last Admin: 10/02/16 06:34 Dose: Not Given Isosorbide Mononitrate (Imdur) 60 mg PO DAILY [facility] Last Admin: 10/01/16 10:12 Dose: 60 mg Lisinopril (Zestril) 10 mg PO DAILY [facility] Last Admin: 10/01/16 10:14 Dose: 10 mg Metoprolol Succinate (Toprol Xl) 100 mg PO BID [facility] Last Admin: 10/01/16 18:25 Dose: 100 mg Morphine Sulfate (Morphine Extended Release Tab) 30 mg PO Q12 [facility] Last Admin: 10/01/16 23:18 Dose: Not Given Ondansetron HCl (Zofran Inj) 4 mg IVP Q6H PRN PRN Reason: Nausea/Vomiting Last Admin: 10/02/16 04:23 Dose: 4 mg Pantoprazole Sodium (Protonix Ec Tab) 40 mg PO DAILY [facility] Last Admin: 10/01/16 10:12 Dose: 40 mg Prasugrel (Effient) 10 mg PO DAILY [facility] Last Admin: 10/01/16 10:11 Dose: 10 mg - Labs Labs: 10/01/16 05:50 10/01/16 05:50 PT 10.6 Seconds (9.9-11.8) 09/30/16 07:55 INR 0.98 (0.93-1.08) 09/30/16 07:55 APTT 26.8 Seconds (23.7-30.8) 09/30/16 07:55 Assessment and Plan - Assessment and Plan (Free Text) Plan: Assessment: Chronic CP and Back Pain Flank Pain CAD/ multiple PCIs/UT/LVD ICD Discogenic Disease HLD PUD/ Opiod Dependency Plan: I spoke with Dr. Mike Vsaquez at [facility]. Await transfer to [facility] for heart transplant re-evaluation. Continue current tx.
[2016-10-02] MEDS: Pantoprazole 40 mg EC Tab PO SCH (09:56)
[2016-10-02] MEDS: guaiFENesin 600 mg ER Tab PO SCH ×2 (09:56→19:01)
[2016-10-02] MEDS: Enoxaparin 40 mg Syringe SC SCH (09:57)
[2016-10-02] MEDS: Morphine 30 mg SR Tab PO SCH (09:57)
[2016-10-02] MEDS: Metoprolol Succinate 100 mg XL Tab PO SCH ×2 (10:00→19:01)
[2016-10-02 10:44] LABS: MEAN CELL VOLUME 81.5 fL (80.0-105.0); MEAN CORPUSCULAR HEMOGLOBIN 26.7 pg (25.0-35.0); MEAN CORPUSCULAR HGB CONC 32.8 g/dl (31.0-37.0); MEAN PLATELET VOLUME 9.2 fl (7.0-11.0); RED CELL DISTRIBUTION WIDTH 14.2 % (11.5-14.5)
[2016-10-02 10:53] LABS: BLOOD UREA NITROGEN 34 mg/dL (7-21); CALCIUM 9.1 mg/dL (8.4-10.5); CARBON DIOXIDE 28 mmol/L (21-33); CHLORIDE 95 mmol/L (98-107); GFR AFRICAN-AMERICAN > 60; GLUCOSE,RANDOM 149 mg/dL (70-110); POTASSIUM 3.7 mmol/L (3.6-5.0); SODIUM 133 mmol/L (132-148)
[2016-10-02 14:04] VITALS: BP 117/72; RESP 20
--- NOTE | 2016-10-02 16:20 | CP.PCM.PN ---
<SammyYasmeen - Last Filed: 10/02/16 16:22> Subjective - Date & Time of Evaluation Date of Evaluation: 10/02/16 Time of Evaluation: 08:50 - Subjective Subjective: Pt seen and evaluated at bedside. Pt reports continued chest pain, and denies N /V, abdominal pain, fever. Reports constipation and urinary retention. Afebrile overnight. Objective - Vital Signs/Intake and Output Vital Signs (last 24 hours): Temp Pulse Resp BP Pulse Ox 98.3 F 89 20 117/72 98 10/02/16 12:00 10/02/16 12:00 10/02/16 12:00 10/02/16 12:00 10/02/16 06:00 Intake and Output: 10/02/16 10/02/16 06:59 18:59 Intake Total 360 Output Total 200 Balance 160 - Medications Medications: Current Medications Aspirin (Aspirin Chewable) 81 mg PO DAILY [facility] Last Admin: 10/02/16 09:56 Dose: 81 mg Atorvastatin Calcium (Lipitor) 80 mg PO DIN [facility] Last Admin: 10/01/16 18:25 Dose: 80 mg Docusate Sodium (Colace) 100 mg PO TID [facility] Last Admin: 10/02/16 14:00 Dose: 100 mg Ezetimibe (Zetia) 10 mg PO DAILY [facility] Last Admin: 10/02/16 09:56 Dose: 10 mg Enoxaparin Sodium (Lovenox) 40 mg SC DAILY [facility] PRN Reason: Protocol Last Admin: 10/02/16 09:57 Dose: 40 mg Fenofibrate (Tricor) 145 mg PO DAILY [facility] Last Admin: 10/02/16 09:56 Dose: 145 mg Furosemide (Lasix) 20 mg PO BID [facility] Last Admin: 10/02/16 10:00 Dose: 20 mg Guaifenesin (Mucinex La) 600 mg PO BID [facility] Last Admin: 10/02/16 09:56 Dose: 600 mg Hydromorphone HCl (Dilaudid) 2 mg IVP Q2H PRN PRN Reason: Pain, severe (8-10) Last Admin: 10/02/16 14:00 Dose: 2 mg Hydromorphone HCl (Dilaudid) 4 mg PO Q4H [facility] Last Admin: 10/02/16 13:58 Dose: Not Given Isosorbide Mononitrate (Imdur) 60 mg PO DAILY [facility] Last Admin: 10/02/16 09:56 Dose: 60 mg Lisinopril (Zestril) 10 mg PO DAILY [facility] Last Admin: 10/02/16 09:59 Dose: 10 mg Metoprolol Succinate (Toprol Xl) 100 mg PO BID [facility] Last Admin: 10/02/16 10:00 Dose: 100 mg Morphine Sulfate (Morphine Extended Release Tab) 30 mg PO Q12 [facility] Last Admin: 10/02/16 09:57 Dose: 30 mg Ondansetron HCl (Zofran Inj) 4 mg IVP Q6H PRN PRN Reason: Nausea/Vomiting Last Admin: 10/02/16 10:03 Dose: 4 mg Pantoprazole Sodium (Protonix Ec Tab) 40 mg PO DAILY [facility] Last Admin: 10/02/16 09:56 Dose: 40 mg Polyethylene Glycol (Miralax) 17 gm PO BID [facility] Prasugrel (Effient) 10 mg PO DAILY [facility] Last Admin: 10/02/16 09:56 Dose: 10 mg - Labs Labs: 10/02/16 10:20 10/02/16 10:20 PT 10.6 Seconds (9.9-11.8) 09/30/16 07:55 INR 0.98 (0.93-1.08) 09/30/16 07:55 APTT 26.8 Seconds (23.7-30.8) 09/30/16 07:55 - Constitutional Appears: Non-toxic, No Acute Distress - Head Exam Head Exam: ATRAUMATIC, NORMOCEPHALIC - Eye Exam Eye Exam: EOMI, Normal appearance - Respiratory Exam Respiratory Exam: Clear to Ausculation Bilateral, NORMAL BREATHING PATTERN - Cardiovascular Exam Cardiovascular Exam: Tachycardia, +S1, +S2 - GI/Abdominal Exam GI & Abdominal Exam: Soft. absent: Tenderness - Exam External exam: absent: Ecchymosis, Erythema - Extremities Exam Extremities Exam: absent: Pedal Edema, Tenderness - Back Exam Back Exam: absent: CVA tenderness (L), CVA tenderness (R) - Neurological Exam Neurological Exam: Alert, Awake - Skin Skin Exam: Intact, Normal Color Assessment and Plan - Assessment and Plan (Free Text) Plan: 50M presents to the ED with complaints of chest pain and shortness of breath on exertion, with scalp abrasion 2/2 to fall at home. Plan: 1. Chest pain, chronic -EKG: Sinus tachycardia -CXR: No acute findings -Serial troponins: x2 negative -Dilaudid -Awaiting transferred to [facility] for further work up 2. Head trauma, Scalp abrasion -F/u MRI- no acute findings 3. HTN -Lisinopril -Isosorbide -Metoprolol -Lasix 4. hyperlipidemia -Lipitor -fenofibrate -ezetimibe 5. Chronic back pain -Morphine 30mg PO 6. DVT/GI ppx -SCDs -Lovenox -Protonix 7. constipation miralax added on today 8. urinary retention bladder scan ordered <Linda Guo MD - Last Filed: 10/02/16 17:39> Objective - Vital Signs/Intake and Output Vital Signs (last 24 hours): Temp Pulse Resp BP Pulse Ox 98.3 F 89 20 117/72 98 10/02/16 12:00 10/02/16 12:00 10/02/16 12:00 10/02/16 12:00 10/02/16 06:00 Intake and Output: 10/02/16 10/02/16 06:59 18:59 Intake Total 360 720 Output Total 200 300 Balance 160 420 - Medications Medications: Current Medications Aspirin (Aspirin Chewable) 81 mg PO DAILY [facility] Last Admin: 10/02/16 09:56 Dose: 81 mg Atorvastatin Calcium (Lipitor) 80 mg PO DIN [facility] Last Admin: 10/01/16 18:25 Dose: 80 mg Docusate Sodium (Colace) 100 mg PO TID [facility] Last Admin: 10/02/16 14:00 Dose: 100 mg Ezetimibe (Zetia) 10 mg PO DAILY [facility] Last Admin: 10/02/16 09:56 Dose: 10 mg Enoxaparin Sodium (Lovenox) 40 mg SC DAILY [facility] PRN Reason: Protocol Last Admin: 10/02/16 09:57 Dose: 40 mg Fenofibrate (Tricor) 145 mg PO DAILY [facility] Last Admin: 10/02/16 09:56 Dose: 145 mg Furosemide (Lasix) 20 mg PO BID [facility] Last Admin: 10/02/16 10:00 Dose: 20 mg Guaifenesin (Mucinex La) 600 mg PO BID [facility] Last Admin: 10/02/16 09:56 Dose: 600 mg Hydromorphone HCl (Dilaudid) 2 mg IVP Q2H PRN PRN Reason: Pain, severe (8-10) Last Admin: 10/02/16 16:34 Dose: 2 mg Hydromorphone HCl (Dilaudid) 4 mg PO Q4H [facility] Last Admin: 10/02/16 13:58 Dose: Not Given Isosorbide Mononitrate (Imdur) 60 mg PO DAILY [facility] Last Admin: 10/02/16 09:56 Dose: 60 mg Lisinopril (Zestril) 10 mg PO DAILY [facility] Last Admin: 10/02/16 09:59 Dose: 10 mg Metoprolol Succinate (Toprol Xl) 100 mg PO BID [facility] Last Admin: 10/02/16 10:00 Dose: 100 mg Morphine Sulfate (Morphine Extended Release Tab) 30 mg PO Q12 [facility] Last Admin: 10/02/16 09:57 Dose: 30 mg Ondansetron HCl (Zofran Inj) 4 mg IVP Q6H PRN PRN Reason: Nausea/Vomiting Last Admin: 10/02/16 10:03 Dose: 4 mg Pantoprazole Sodium (Protonix Ec Tab) 40 mg PO DAILY [facility] Last Admin: 10/02/16 09:56 Dose: 40 mg Polyethylene Glycol (Miralax) 17 gm PO BID [facility] Prasugrel (Effient) 10 mg PO DAILY [facility] Last Admin: 10/02/16 09:56 Dose: 10 mg - Labs Labs: 10/02/16 10:20 10/02/16 10:20 PT 10.6 Seconds (9.9-11.8) 09/30/16 07:55 INR 0.98 (0.93-1.08) 09/30/16 07:55 APTT 26.8 Seconds (23.7-30.8) 09/30/16 07:55 Attending/Attestation - Attestation I have personally seen and examined this patient.: Yes I have fully participated in the care of the patient.: Yes I have reviewed all pertinent clinical information, including history, physical exam and plan: Yes Notes (Text): 10/02/16 17:36 Patient was seen and examined with medical physicist .Agreed with resident assessment and plan. 50 yrs old Male with PMH of severe CAD ,SP CABG,SP multiple cardiac stent AICD placement, COPD, HTN, PUD, anxiety, and opioid dependency presents to the ED with complaints of chest pain and SOB on exertion.Patient is on heart transplant list, and he is on maximum anti anginal therapy.His EKG is negative for new ischemic changes, serial troponins are normal.Patient is still having lot of chest pain, on IV hydromorphone, awaiting for bed at [facility].We will continue current management.Cardiology follow up is appreciated. Management plan was discussed in detail with patient Education was provided.
[2016-10-02] MEDS ORDERED: POLYETHYLENE GLYCOL 3350 17 GM/Dose PACKET PO SCH (18:00)
[2016-10-02 19:05] VITALS: PULSE 64
[2016-10-02 19:23] VITALS: TEMP 97.6
--- NOTE | 2016-10-03 06:46 | CP.PCM.DIS ---
<Yasmeen Christianson - Last Filed: 10/03/16 07:05> Provider - Provider Date of Admission: 09/30/16 08:26 Attending physician: Linda Guo MD Primary care physician: NO PRIMARY CARE PROVIDER Consults: Dr. Paris Time Spent in preparation of Discharge (in minutes): 35 Hospital Course - Lab Results Lab Results: Micro Results 09/30/16 10:50 Urine Urine Culture - Final No Growth (<1,000 CFU/ML) Most Recent Lab Values WBC 5.0 10^3/ul (4.5-11.0) D 10/02/16 10:20 RBC 4.91 10^6/uL (3.5-6.1) 10/02/16 10:20 Hgb 13.1 gm/dL (14.0-18.0) L 10/02/16 10:20 Hct 40.0 % (42.0-52.0) L 10/02/16 10:20 MCV 81.5 fL (80.0-105.0) 10/02/16 10:20 MCH 26.7 pg (25.0-35.0) 10/02/16 10:20 MCHC 32.8 g/dl (31.0-37.0) 10/02/16 10:20 RDW 14.2 % (11.5-14.5) 10/02/16 10:20 Plt Count 248 10^3/uL (120.0-450.0) 10/02/16 10:20 MPV 9.2 fl (7.0-11.0) 10/02/16 10:20 Gran % 53.9 % (50.0-68.0) 09/30/16 07:55 Lymph % (Auto) 33.7 % (22.0-35.0) 09/30/16 07:55 [place] % (Auto) 8.7 % (1.0-6.0) H 09/30/16 07:55 Eos % (Auto) 3.2 % (1.5-5.0) 09/30/16 07:55 Baso % (Auto) 0.5 % (0.0-3.0) 09/30/16 07:55 Gran # 3.03 (1.4-6.5) 09/30/16 07:55 Lymph # 1.9 (1.2-3.4) 09/30/16 07:55 [place] # 0.5 (0.1-0.6) 09/30/16 07:55 Eos # 0.2 (0.0-0.7) 09/30/16 07:55 Baso # 0.03 K/mm3 (0.0-2.0) 09/30/16 07:55 PT 10.6 Seconds (9.9-11.8) 09/30/16 07:55 INR 0.98 (0.93-1.08) 09/30/16 07:55 APTT 26.8 Seconds (23.7-30.8) 09/30/16 07:55 Sodium 133 mmol/L (132-148) 10/02/16 10:20 Potassium 3.7 mmol/L (3.6-5.0) 10/02/16 10:20 Chloride 95 mmol/L (98-107) L 10/02/16 10:20 Carbon Dioxide 28 mmol/L (21-33) 10/02/16 10:20 Anion Gap 14 (10-20) 10/02/16 10:20 BUN 34 mg/dL (7-21) H 10/02/16 10:20 Creatinine 1.1 mg/dL (0.5-1.4) 10/02/16 10:20 Est GFR ( Amer) > 60 10/02/16 10:20 Est GFR (Non-Af Amer) > 60 10/02/16 10:20 Random Glucose 149 mg/dL (70-110) H 10/02/16 10:20 Calcium 9.1 mg/dL (8.4-10.5) 10/02/16 10:20 Total Bilirubin 0.8 mg/dL (0.2-1.3) 09/30/16 07:55 AST 25 U/L (15-59) 09/30/16 07:55 ALT 23 U/L (7-56) 09/30/16 07:55 Alkaline Phosphatase 50 U/L (38-133) 09/30/16 07:55 Total Creatine Kinase 81 U/L (35-230) 09/30/16 07:55 Troponin I 0.01 ng/mL 10/01/16 05:50 NT-Pro-B Natriuret Pep 331 pg/mL (0-450) 09/30/16 07:55 Total Protein 8.0 g/dL (5.8-8.3) 09/30/16 07:55 Albumin 4.8 g/dL (3.0-4.8) 09/30/16 07:55 Globulin 3.2 gm/dL 09/30/16 07:55 Albumin/Globulin Ratio 1.5 (1.1-1.8) 09/30/16 07:55 Urine Color Yellow (YELLOW) 09/30/16 10:50 Urine Appearance Clear (CLEAR) 09/30/16 10:50 Urine pH 7.0 (4.7-8.0) 09/30/16 10:50 Ur Specific [place] 1.015 (1.005-1.035) 09/30/16 10:50 Urine Protein Negative mg/dL (<30 mg/dL) 09/30/16 10:50 Urine Glucose (UA) Negative mg/dL (NEGATIVE) 09/30/16 10:50 Urine Ketones Negative mg/dL (NEGATIVE) 09/30/16 10:50 Urine Blood Negative (NEGATIVE) 09/30/16 10:50 Urine Nitrate Negative (NEGATIVE) 09/30/16 10:50 Urine Bilirubin Negative (NEGATIVE) 09/30/16 10:50 Urine Urobilinogen 0.2 E.U./dL (<1 E.U./dL) 09/30/16 10:50 Ur Leukocyte Esterase Negative Julia/uL (NEGATIVE) 09/30/16 10:50 Urine Opiates Screen Positive (NEGATIVE) H 09/30/16 10:50 Urine Methadone Screen Negative (NEGATIVE) 09/30/16 10:50 Ur Barbiturates Screen Negative (NEGATIVE) 09/30/16 10:50 Ur Phencyclidine Scrn Negative (NEGATIVE) 09/30/16 10:50 Ur Amphetamines Screen Negative (NEGATIVE) 09/30/16 10:50 U Benzodiazepines Scrn Positive (NEGATIVE) H 09/30/16 10:50 U Oth Cocaine Metabols Negative (NEGATIVE) 09/30/16 10:50 U Cannabinoids Screen Negative (NEGATIVE) 09/30/16 10:50 - Hospital Course Hospital Course: 50 y/o M with PMHx of severe CAD with multiple stent placement and CABG, AICD placement, COPD, HTN, PUD, anxiety, and opioid dependency presents to the ED with complaints of chest pain and SOB on exertion. Patient reports becoming short of breath even with simple body movements (i.e. raising his arms). Patient states he is on cardiac transplant list at [facility]. Patient states his chronic chest pain is something he has dealt with for a while, however the pain these pst few days have been quite severe and he decided to report to ED. Patient is on heart transplant list, and he is on maximum anti anginal therapy. His EKG is negative for new ischemic changes, initial troponins is normal, cardiology is planning for transfer patient to [facility]. CT head is negative. Transferred to telemetry for chest pain. On floor, troponins x3 are negative. Constant chest pain controlled by IV hydromorphone by cardiology. Chest pain remained constant during course of admission. Admnistered the following medications for HTN and hyperlipidemia: Lisinopril, Isosorbide, Metoprolol, Lasix, Lipitor, fenofibrate, ezetimibe. D/ C in guarded condition for transfer to care of [facility]. Discharge Exam - Additional Findings Additional findings: See progress note from date of d/c 10/02/2016 Discharge Plan - Follow Up Plan Condition: GUARDED Disposition: Trans to Other Acute Care Hosp Instructions: Chest Pain (ED) Referrals: [facility] [Primary Care Provider] - <Sari AGUIAR,Linda - Last Filed: 10/03/16 08:12> Provider - Provider Date of Admission: 09/30/16 08:26 Attending physician: Linda Guo MD Primary care physician: ZAIN PRIMARY CARE PROVIDER Hospital Course - Lab Results Lab Results: Micro Results 09/30/16 10:50 Urine Urine Culture - Final No Growth (<1,000 CFU/ML) Most Recent Lab Values WBC 5.0 10^3/ul (4.5-11.0) D 10/02/16 10:20 RBC 4.91 10^6/uL (3.5-6.1) 10/02/16 10:20 Hgb 13.1 gm/dL (14.0-18.0) L 10/02/16 10:20 Hct 40.0 % (42.0-52.0) L 10/02/16 10:20 MCV 81.5 fL (80.0-105.0) 10/02/16 10:20 MCH 26.7 pg (25.0-35.0) 10/02/16 10:20 MCHC 32.8 g/dl (31.0-37.0) 10/02/16 10:20 RDW 14.2 % (11.5-14.5) 10/02/16 10:20 Plt Count 248 10^3/uL (120.0-450.0) 10/02/16 10:20 MPV 9.2 fl (7.0-11.0) 10/02/16 10:20 Gran % 53.9 % (50.0-68.0) 09/30/16 07:55 Lymph % (Auto) 33.7 % (22.0-35.0) 09/30/16 07:55 [place] % (Auto) 8.7 % (1.0-6.0) H 09/30/16 07:55 Eos % (Auto) 3.2 % (1.5-5.0) 09/30/16 07:55 Baso % (Auto) 0.5 % (0.0-3.0) 09/30/16 07:55 Gran # 3.03 (1.4-6.5) 09/30/16 07:55 Lymph # 1.9 (1.2-3.4) 09/30/16 07:55 [place] # 0.5 (0.1-0.6) 09/30/16 07:55 Eos # 0.2 (0.0-0.7) 09/30/16 07:55 Baso # 0.03 K/mm3 (0.0-2.0) 09/30/16 07:55 PT 10.6 Seconds (9.9-11.8) 09/30/16 07:55 INR 0.98 (0.93-1.08) 09/30/16 07:55 APTT 26.8 Seconds (23.7-30.8) 09/30/16 07:55 Sodium 133 mmol/L (132-148) 10/02/16 10:20 Potassium 3.7 mmol/L (3.6-5.0) 10/02/16 10:20 Chloride 95 mmol/L (98-107) L 10/02/16 10:20 Carbon Dioxide 28 mmol/L (21-33) 10/02/16 10:20 Anion Gap 14 (10-20) 10/02/16 10:20 BUN 34 mg/dL (7-21) H 10/02/16 10:20 Creatinine 1.1 mg/dL (0.5-1.4) 10/02/16 10:20 Est GFR ( Amer) > 60 10/02/16 10:20 Est GFR (Non-Af Amer) > 60 10/02/16 10:20 Random Glucose 149 mg/dL (70-110) H 10/02/16 10:20 Calcium 9.1 mg/dL (8.4-10.5) 10/02/16 10:20 Total Bilirubin 0.8 mg/dL (0.2-1.3) 09/30/16 07:55 AST 25 U/L (15-59) 09/30/16 07:55 ALT 23 U/L (7-56) 09/30/16 07:55 Alkaline Phosphatase 50 U/L (38-133) 09/30/16 07:55 Total Creatine Kinase 81 U/L (35-230) 09/30/16 07:55 Troponin I 0.01 ng/mL 10/01/16 05:50 NT-Pro-B Natriuret Pep 331 pg/mL (0-450) 09/30/16 07:55 Total Protein 8.0 g/dL (5.8-8.3) 09/30/16 07:55 Albumin 4.8 g/dL (3.0-4.8) 09/30/16 07:55 Globulin 3.2 gm/dL 09/30/16 07:55 Albumin/Globulin Ratio 1.5 (1.1-1.8) 09/30/16 07:55 Urine Color Yellow (YELLOW) 09/30/16 10:50 Urine Appearance Clear (CLEAR) 09/30/16 10:50 Urine pH 7.0 (4.7-8.0) 09/30/16 10:50 Ur Specific [place] 1.015 (1.005-1.035) 09/30/16 10:50 Urine Protein Negative mg/dL (<30 mg/dL) 09/30/16 10:50 Urine Glucose (UA) Negative mg/dL (NEGATIVE) 09/30/16 10:50 Urine Ketones Negative mg/dL (NEGATIVE) 09/30/16 10:50 Urine Blood Negative (NEGATIVE) 09/30/16 10:50 Urine Nitrate Negative (NEGATIVE) 09/30/16 10:50 Urine Bilirubin Negative (NEGATIVE) 09/30/16 10:50 Urine Urobilinogen 0.2 E.U./dL (<1 E.U./dL) 09/30/16 10:50 Ur Leukocyte Esterase Negative Julia/uL (NEGATIVE) 09/30/16 10:50 Urine Opiates Screen Positive (NEGATIVE) H 09/30/16 10:50 Urine Methadone Screen Negative (NEGATIVE) 09/30/16 10:50 Ur Barbiturates Screen Negative (NEGATIVE) 09/30/16 10:50 Ur Phencyclidine Scrn Negative (NEGATIVE) 09/30/16 10:50 Ur Amphetamines Screen Negative (NEGATIVE) 09/30/16 10:50 U Benzodiazepines Scrn Positive (NEGATIVE) H 09/30/16 10:50 U Oth Cocaine Metabols Negative (NEGATIVE) 09/30/16 10:50 U Cannabinoids Screen Negative (NEGATIVE) 09/30/16 10:50 Attending/Attestation - Attestation I have personally seen and examined this patient.: Yes I have fully participated in the care of the patient.: Yes I have reviewed all pertinent clinical information, including history, physical exam and plan: Yes Notes (Text): 10/03/16 08:10 Patient was seen and examined with certified medical aide .Agreed with resident assessment and plan. 50 yrs old Male with PMH of severe CAD ,SP CABG,SP multiple cardiac stent AICD placement, COPD, HTN, PUD, anxiety, and opioid dependency was admitted with worsening chest pain and SOB on exertion.Patient is on heart transplant list, and he is on maximum anti anginal therapy.His EKG was negative for new ischemic changes, serial troponins are normal.Patient was requiring IV hydromorphone in addition to his ani anginal therapy.He was accepted at [facility] and was transferred for high level of care . Management plan was discussed in detail with patient Education was provided.
== END 2016-10-02 22:20 | disposition short-term general hospital (02) | DRG 303 ==
LOC: ED 07:30 → ERH 08:26 → 2RNO 11:15
PROVIDERS: ADMIT Internal Medicine; ATTEND Internal Medicine
DX: I25.119 Atherosclerotic heart disease of native coronary artery with unspecified angina pectoris (principal); Z76.82 Awaiting organ transplant status; F11.20 Opioid dependence, uncomplicated; R62.7 Adult failure to thrive; G89.4 Chronic pain syndrome; E78.5 Hyperlipidemia, unspecified; I10 Essential (primary) hypertension; J44.9 Chronic obstructive pulmonary disease, unspecified; M51.9 Unspecified thoracic, thoracolumbar and lumbosacral intervertebral disc disorder; M50.90 Cervical disc disorder, unspecified, unspecified cervical region; K59.00 Constipation, unspecified; Z87.11 Personal history of peptic ulcer disease; R33.9 Retention of urine, unspecified; S00.01XA Abrasion of scalp, initial encounter; K21.9 Gastro-esophageal reflux disease without esophagitis; I25.2 Old myocardial infarction; W19.XXXA Unspecified fall, initial encounter; Y92.009 Unspecified place in unspecified non-institutional (private) residence as the place of occurrence of the external cause; Z79.82 Long term (current) use of aspirin; Z95.1 Presence of aortocoronary bypass graft; Z95.5 Presence of coronary angioplasty implant and graft; Z95.810 Presence of automatic (implantable) cardiac defibrillator

== ENCOUNTER 2017-08-31 07:43 | Inpatient (IN) | payer MEDICARE, BC ==
[2017-08-31 07:52] VITALS: BMI 20.3
--- NOTE | 2017-08-31 07:57 | ED PDOC ---
Arrival/HPI - General Time Seen by Provider: 08/31/17 07:43 Historian: Patient - History of Present Illness Narrative History of Present Illness (Text): 08/31/17 08:12 51 year old male, whose PMH includes HTN, pacemaker, COPD, cardiac catheterization, and coronary stents, who presents to the emergency department complaining of sharp chest pain, pt staets on transplant list for heart transplant. pt requesting iv hydromorphine 5mg on arrival. No other complaints were made. Bankruptcy Assistant: Dr. Cutler 08/31/17 13:33 Time/Duration: Prior to Arrival Symptom Onset: Sudden Symptom Course: Unchanged Activities at Onset: Light Context: Home Past Medical History - Provider Review Nursing Documentation Reviewed: Yes - Infectious Disease Hx of Infectious Diseases: None - Tetanus Immunization Tetanus Immunization: Unknown - Cardiac Hx Cardiac Disorders: Yes Hx Angina: Yes Hx Hypertension: Yes Hx Internal Defibrillator: Yes (06/2013 aicd) Hx Pacemaker: Yes (06/2013 aicd) Other/Comment: mi 2008/2011/6 months ago,cabg 1 vessel 2009 - Pulmonary Hx Bronchitis: Yes Hx Chronic Obstructive Pulmonary Disease (COPD): Yes - Neurological Hx Neurological Disorder: No - HEENT Hx HEENT Disorder: Yes (sinus problem) - Renal Hx Renal Disorder: No - Endocrine/Metabolic Hx Endocrine Disorders: No - Hematological/Oncological Hx Blood Disorders: No - Integumentary Hx Dermatological Disorder: No - Musculoskeletal/Rheumatological Hx Back Pain: Yes (chronic) Hx Falls: Yes Hx Herniated Disk: Yes (lower back) Other/Comment: laminectomy 2011 - Gastrointestinal Hx Gastroesophageal Reflux: Yes - Genitourinary/Gynecological Hx Genitourinary Disorders: No - Psychiatric Hx Psychophysiologic Disorder: Yes Hx Anxiety: Yes Hx Bipolar Disorder: Yes Hx Substance Use: No - Surgical History Hx Cardiac Catheterization: Yes (28 or 30 pt and lost count) Hx Coronary Stent: Yes (x2) - Anesthesia Hx Anesthesia: Yes Hx Anesthesia Reactions: No - Suicidal Assessment Feels Threatened In Home Enviroment: No Family/Social History - Physician Review Nursing Documentation Reviewed: Yes Family/Social History: Unknown Family HX Smoking Status: Never Smoked Hx Alcohol Use: No Hx Substance Use: No Allergies/Home Meds Allergies/Adverse Reactions: Allergies No Known Allergies Allergy (Verified 08/31/17 07:57) Home Medications: Home Meds Medication Instructions Recorded Confirmed Aspirin [Ecotrin] 81 mg PO DAILY 06/10/16 08/31/17 Fenofibrate Nanocrystallized 145 mg PO DAILY 06/10/16 08/31/17 [Tricor] Furosemide [Lasix] 20 mg PO BID 06/10/16 08/31/17 HYDROmorphone [Dilaudid] 4 mg PO Q4H 06/10/16 08/31/17 Morphine [Morphine Immediate 30 mg PO BID 06/10/16 08/31/17 Release Tab] Nitroglycerin [Nitrostat] 0.4 mg SL PRN PRN 06/10/16 08/31/17 diaZEpam [Valium] 5 mg PO Q12 06/10/16 08/31/17 Docusate [Colace] 100 mg PO TID 09/30/16 08/31/17 Metoprolol Tartrate [Lopressor] 100 mg PO BID 09/30/16 08/31/17 Pregabalin [Lyrica] 50 mg PO BID 08/31/17 08/31/17 Tamsulosin [Flomax] 0.4 mg PO DAILY 08/31/17 08/31/17 tiZANidine [Zanaflex] 4 mg PO BID 08/31/17 08/31/17 Review of Systems - Review of Systems Constitutional: absent: Fevers ENT: absent: Sinus Congestion Respiratory: absent: Cough Cardiovascular: Chest Pain (sharp) Gastrointestinal: Nausea, Vomiting Genitourinary Male: absent: Dysuria Musculoskeletal: Myalgias Skin: absent: Rash Neurological: absent: Headache Endocrine: absent: Diaphoresis Physical Exam Vital Signs Reviewed: Yes Vital Signs Temp Pulse Pulse Resp BP BP Pulse Ox 08/31/17 10:32 84 22 149/77 100 08/31/17 08:10 86 119/79 08/31/17 07:50 97.6 F 100 H 24 119/79 99 Temperature: Afebrile Blood Pressure: Normal Pulse: Tachycardic Respiratory Rate: Normal Appearance: Positive for: Non-Toxic, Ill-Appearing Pain Distress: Mild Mental Status: Positive for: Alert and Oriented X 3 - Systems Exam Head: Present: Atraumatic, Normocephalic Pupils: Present: PERRL Extroacular Muscles: Present: EOMI Conjunctiva: Present: Normal Neck: Present: Normal Range of Motion Respiratory/Chest: Present: Clear to Auscultation, Good Air Exchange. No: Respiratory Distress, Accessory Muscle Use, Wheezes, Rales, Rhonchi Cardiovascular: Present: Regular Rate and Rhythm, Normal S1, S2. No: Murmurs Abdomen: Present: Other (currently vomiting). No: Tenderness, Distention, Peritoneal Signs, Rebound, Guarding Neurological: Present: GCS=15, CN II-XII Intact, Speech Normal Skin: Present: Warm, Dry, Normal Color. No: Rashes Psychiatric: Present: Alert, Oriented x 3, Normal Insight, Normal Concentration Medical Decision Making ED Course and Treatment: 08/31/17 Impression: 51 year old male, who is currently vomiting, complaining of chest pain, vomiting , and general body aches since this morning. Plan: -- EKG -- Chest X-ray -- Labs -- Nitroglycerin and Zofran -- Urinalysis -- Reassess and disposition Progress Notes: 08/31/17 09:00 Chest X-ray: Creator : DR. Garcia, Scar AGUIAR COMPARISON: 09/30/2016 FINDINGS: LUNGS: No active pulmonary disease. PLEURA: No significant pleural effusion identified, no pneumothorax apparent. CARDIOVASCULAR: No radiographic findings to suggest acute or significant cardiovascular disease. Incidental Finding(s): Postoperative changes related to sternotomy. Position/ configuration of pacemaker\AICD device: Satisfactory. OSSEOUS STRUCTURES: No significant abnormalities. VISUALIZED UPPER ABDOMEN: Normal. OTHER FINDINGS: None. IMPRESSION: No active disease. No significant interval change compared to the prior examination(s). 08/31/17 13:34 avised pt will be treated with non narcotics. accepted by dr ariza. - Lab Interpretations Lab Results: 08/31/17 08:05 08/31/17 08:05 Lab Results 08/31/17 08:05: PT 11.9, INR 1.03, APTT 27.7 08/31/17 08:05: Sodium 140, Potassium 3.1 L, Chloride 98, Carbon Dioxide 24, Anion Gap 21 H, BUN 14, Creatinine 0.8, Est GFR ( Amer) > 60, Est GFR ( Non-Af Amer) > 60, Random Glucose 125 H, Calcium 9.4, Magnesium 1.8, Total Bilirubin 0.8, AST 28, ALT 19, Alkaline Phosphatase 58, Lactate Dehydrogenase 443, Total Creatine Kinase 67, Troponin I < 0.01, NT-Pro-B Natriuret Pep 793 H, Total Protein 7.7, Albumin 4.6, Globulin 3.0, Albumin/Globulin Ratio 1.5 08/31/17 08:05: WBC 7.5 D, RBC 4.86, Hgb 13.8 L, Hct 40.4 L, MCV 83.1, MCH 28.4 , MCHC 34.2, RDW 14.9 H, Plt Count 287, MPV 9.4, Gran % 69.0 H, Lymph % (Auto) 23.0, [place] % (Auto) 6.8 H, Eos % (Auto) 0.9 L, Baso % (Auto) 0.3, Gran # 5.17, Lymph # (Auto) 1.7, [place] # (Auto) 0.5, Eos # (Auto) 0.1, Baso # (Auto) 0.02 I have reviewed the lab results: Yes - RAD Interpretation Radiology Orders: 08/31/17 08:07 CHEST PORTABLE [RAD] Stat Mechanist: Radiologist - EKG Interpretation Interpreted by ED Physician: Yes Type: 12 lead EKG - Medication Orders Current Medication Orders: Aspirin (Ecotrin) 81 mg PO DAILY [facility] Last Admin: 08/31/17 11:53 Dose: Not Given Non-Admin Reason: Patient Refused Atorvastatin Calcium (Lipitor) 80 mg PO DIN [facility] Docusate Sodium (Colace) 100 mg PO TID [facility] Last Admin: 08/31/17 13:56 Dose: 100 mg Last Bowel Movement Document 08/31/17 13:56 KL (Rec: 08/31/17 13:56 KL [id number]) Last Bowel Movement Last Bowel Movement 08/31/17 Ezetimibe (Zetia) 10 mg PO DAILY [facility] Last Admin: 08/31/17 12:00 Dose: 10 mg Enoxaparin Sodium (Lovenox) 60 mg SC Q12H [facility] PRN Reason: Protocol Stop: 09/01/17 13:30 Last Admin: 08/31/17 13:55 Dose: 60 mg Subcutaneous Administrations Document 08/31/17 13:55 KL (Rec: 08/31/17 13:55 KL [id number]) Injection Site MAR Injection Site Right Abdomen Charges for Administration # of Subcutaneous Administrations 1 Fenofibrate (Tricor) 145 mg PO DAILY [facility] Last Admin: 08/31/17 12:00 Dose: 145 mg Furosemide (Lasix) 20 mg PO BID [facility] Last Admin: 08/31/17 11:54 Dose: Not Given Non-Admin Reason: Patient Refused Hydromorphone HCl (Dilaudid) 4 mg PO Q4H [facility] Last Admin: 08/31/17 13:55 Dose: [address] [facility] Pain Assessment Document 08/31/17 13:55 KL (Rec: 08/31/17 13:56 [id number] Pain Reassessment Is this a pain reassessment? No Sleep Is patient sleeping during reassessment? No Presence of Pain Presence of Pain Yes Pain Scale Used Pain Scale Used Numeric Location Pain Location Body Site Chest Description Intensity of Pain at present 10 Hydromorphone HCl (Dilaudid) 2 mg IVP Q2H PRN PRN Reason: Pain, severe (8-10) Last Admin: 08/31/17 12:28 Dose: [address] [facility] Pain Assessment Document 08/31/17 12:28 KL (Rec: 08/31/17 12:29 [id number] Pain Reassessment Is this a pain reassessment? No Presence of Pain Presence of Pain Yes Pain Scale Used Pain Scale Used Numeric Location Pain Location Body Site Chest Description Intensity of Pain at present 10 Alleviating Factors/Management Medication Techniques IVP Administration Document 08/31/17 12:28 KL (Rec: 08/31/17 12:29 [id number]) Charges for Administration # of IVP Administrations 1 Re-Assess: [facility] Pain Assessment Document 08/31/17 13:28 KL (Rec: 08/31/17 13:57 KL [id number]) Pain Reassessment Is this a pain reassessment? Yes Presence of Pain Presence of Pain Yes Pain Scale Used Pain Scale Used Numeric Location Pain Location Body Site Chest Description Intensity of Pain at present 9 Potassium Phosphate 15 mmole/ (Sodium Chloride) 255 mls @ 42.5 mls/hr IVPB ONCE ONE Stop: 08/31/17 16:10 Last Admin: 08/31/17 13:58 Dose: 42.5 mls/hr Isosorbide Mononitrate (Imdur) 60 mg PO DAILY [facility] Last Admin: 08/31/17 11:57 Dose: 60 mg Metoprolol Tartrate (Lopressor) 100 mg PO BID [facility] Last Admin: 08/31/17 11:58 Dose: 100 mg MAR Pulse and Blood Pressure Document 08/31/17 11:58 PANCHO (Rec: 08/31/17 11:58 [id number]) Pulse Pulse Rate (60-90) 84 Blood Pressure Blood Pressure (100/60-150/90) 152/93 Morphine Sulfate (Morphine Immediate Release Tab) 30 mg PO BID [facility] Last Admin: 08/31/17 11:54 Dose: Not Given Non-Admin Reason: Patient Refused Non-Formulary Medication (Ranolazine [Ranexa]) 1,000 mg PO BID [facility] Last Admin: 08/31/17 11:55 Dose: Ondansetron HCl (Zofran Inj) 4 mg IVP Q6H PRN PRN Reason: Nausea/Vomiting Pantoprazole Sodium (Protonix Inj) 40 mg IVP DAILY [facility] Last Admin: 08/31/17 11:55 Dose: Not Given Non-Admin Reason: Patient Refused Polyethylene Glycol (Miralax) 17 gm PO DAILY [facility] Last Admin: 08/31/17 11:59 Dose: 17 gm Potassium Chloride (K-Dur 20 Meq Er Tab) 30 meq PO BID [facility] Last Admin: 08/31/17 12:26 Dose: 30 meq Potassium Phos/Sodium Phos (Neutra-Phos) 1 pkt PO TID [facility] Stop: 09/01/17 00:00 Last Admin: 08/31/17 13:56 Dose: 1 pkt Prasugrel (Effient) 10 mg PO DAILY [facility] Last Admin: 08/31/17 11:54 Dose: Not Given Non-Admin Reason: Patient Refused Pregabalin (Lyrica) 50 mg PO BID [facility] Last Admin: 08/31/17 11:54 Dose: Not Given Non-Admin Reason: Patient Refused Tamsulosin HCl (Flomax) 0.4 mg PO DAILY [facility] Last Admin: 08/31/17 11:54 Dose: Not Given Non-Admin Reason: Patient Refused Tizanidine HCl (Zanaflex) 4 mg PO BID [facility] Discontinued Medications Hydromorphone HCl (Dilaudid) 2 mg IVP STAT STA Stop: 08/31/17 09:09 Last Admin: 08/31/17 09:29 Dose: 2 mg MAR Pain Assessment Document 08/31/17 09:29 MR (Rec: 08/31/17 09:30 MR [id number]) Pain Reassessment Is this a pain reassessment? Yes Sleep Is patient sleeping during reassessment? No Presence of Pain Presence of Pain Yes Pain Scale Used Pain Scale Used Numeric Location Left, Right or Bilateral Left Pain Location Body Site Chest Description Description Sharp Intensity of Pain at present 10 Pain Behavior Irritability Facial Grimacing Screaming Aggravating Factors None Alleviating Factors/Management Medication Techniques Alleviating Factors Medication IVP Administration Document 08/31/17 09:29 MR (Rec: 08/31/17 09:30 MR [id number]) Charges for Administration # of IVP Administrations 1 Hydromorphone HCl (Dilaudid) 2 mg IVP Q2H PRN PRN Reason: Pain, severe (8-10) Hydromorphone HCl (Dilaudid) 2 mg IVP Q2H PRN PRN Reason: Pain, severe (8-10) Nitroglycerin (Nitro-Bid 2% Oint) 1 ea TOP STAT STA Stop: 08/31/17 08:12 Last Admin: 08/31/17 08:22 Dose: Not Given Non-Admin Reason: Patient Refused Non-Formulary Medication (Metoprolol Tartrate [Lopressor]) 100 mg PO BID ALEC Ondansetron HCl (Zofran Inj) 4 mg IVP STAT STA Stop: 08/31/17 08:12 Last Admin: 08/31/17 08:22 Dose: 4 mg IVP Administration Document 08/31/17 08:22 (Rec: 08/31/17 08:22 MR [id number]) Charges for Administration # of IVP Administrations 1 Potassium Chloride (K-Dur 20 Meq Er Tab) 40 meq PO STAT STA Stop: 08/31/17 08:41 Last Admin: 08/31/17 09:24 Dose: 40 meq - Scribe Statement The provider has reviewed the documentation as recorded by the Annalise Jacobo Provider Scribe Attestation: All medical record entries made by the Scribe were at my direction and personally dictated by me. I have reviewed the chart and agree that the record accurately reflects my personal performance of the history, physical exam, medical decision making, and the department course for this patient. I have also personally directed, reviewed, and agree with the discharge instructions and disposition. Disposition/Present on Arrival - Present on Arrival Any Indicators Present on Arrival: No History of DVT/PE: No History of Uncontrolled Diabetes: No Urinary Catheter: No History Surgical Site Infection Following: None - Disposition Have Diagnosis and Disposition been Completed?: Yes Diagnosis: Chest pain, Drug-seeking behavior Disposition: HOSPITALIZED Disposition Time: 09:00 Patient Problems: Current Active Problems Problem Status Onset Drug-seeking behavior Acute Chest pain Chronic Condition: STABLE
[2017-08-31] MEDS ORDERED: Nitroglycerin 2% Ointment Foilpak UD TOP STA (08:11)
[2017-08-31 08:39] LABS: ALB/GLOB RATIO 1.5 (1.1-1.8); ALBUMIN 4.6 g/dL (3.0-4.8); ALT/SGPT 19 U/L (7-56); AST/SGOT 28 U/L (17-59); BLOOD UREA NITROGEN 14 mg/dL (7-21); CALCIUM 9.4 mg/dL (8.4-10.5); GFR AFRICAN-AMERICAN > 60; GFR NON-AFRICAN AMERICAN > 60
[2017-08-31 08:40] LABS: BASO # 0.02 K/mm3 (0.0-2.0); BASO % 0.3 % (0.0-3.0); EOS # 0.1 (0.0-0.7); EOS % 0.9 % (1.5-5.0); GRAN # 5.17 (1.4-6.5); HEMOGLOBIN 13.8 g/dL (14.0-18.0); LYMPH # 1.7 (1.2-3.4); MEAN CELL VOLUME 83.1 fl (80.0-105.0); MEAN CORPUSCULAR HEMOGLOBIN 28.4 pg (25.0-35.0); MEAN CORPUSCULAR HGB CONC 34.2 g/dl (31.0-37.0); MEAN PLATELET VOLUME 9.4 fl (7.0-11.0); MONO # 0.5 (0.1-0.6); MONO % 6.8 % (1.0-6.0); RBC 4.86 10^6/uL (3.5-6.1); RED CELL DISTRIBUTION WIDTH 14.9 % (11.5-14.5); WHITE BLOOD COUNT 7.5 10^3/ul (4.5-11.0)
[2017-08-31] MEDS ORDERED: Potassium Chloride 20 mEq ER Tab PO STA (08:40)
[2017-08-31 08:41] LABS: INR 1.03 (0.93-1.08); PARTIAL THROMBOPLASTIN TIME 27.7 Seconds (25.1-36.5); PROTHROMBIN TIME 11.9 SECONDS (9.4-12.5)
[2017-08-31 08:50] LABS: B-TYPE NATRIURETIC PEPTIDE 793 pg/mL (0-450); TROPONIN I < 0.01 ng/mL
--- NOTE | 2017-08-31 08:50 | RAD ---
HISTORY: Chest pain COMPARISON: 09/30/2016 FINDINGS: LUNGS: No active pulmonary disease. PLEURA: No significant pleural effusion identified, no pneumothorax apparent. CARDIOVASCULAR: No radiographic findings to suggest acute or significant cardiovascular disease. Incidental Finding(s): Postoperative changes related to sternotomy. Position/ configuration of pacemaker device: Satisfactory. OSSEOUS STRUCTURES: No significant abnormalities. VISUALIZED UPPER ABDOMEN: Normal. OTHER FINDINGS: None. IMPRESSION: No active disease. No significant interval change compared to the prior examination(s).
--- NOTE | 2017-08-31 09:07 | CP.PCM.HP ---
<Devora Wright - Last Filed: 08/31/17 12:27> History of Present Illness - History of Present Illness History of Present Illness: 51yo male extensive PMHx of CABG, CAD with stents, multiple cardiac catheterizations, AICD, [place], COPD, HTN, back pain, peptic ulcer disease, anxiety disorder presents to [facility] with unrelenting chest pain with associated nausea/ vomiting for 1 week. As per at bedside, patient has chronic pain but has been becoming progressively worse over the past week. He has been waking up with >10/10 chest pain that is sharp in nature and radiates to his upper back. Patient states the pain feels like it is near his ICD but does not feel like it is the ICD firing off. He has also had complaints of SOB and is unable to walk more than 10feet before having to sit down or requires help. Patient has been trying ASA and dilaudid for his chest pain but as they were not improving, he decided to come in. He states that the pain is so bad that it even hurts to talk. He admitted to associated chills, headache, dizziness, palpitations, cough , nausea, multiple episodes of nonbloody nonbilious emesis, urinary retention, constipation, R arm pain, decreased appetite, and weight loss. He denied any subjective fevers and pain/swelling in his legs b/l. As per patient and at bedside, patient is on the list for a heart transplant. PMHx: CABG, CAD with stents, multiple cardiac catheterizations, AICD, [place], COPD, HTN, back pain, peptic ulcer disease, anxiety disorder Past Surgeries: CABG, AICD placement, multiple catheterizations and stent placement Meds: pls see list Allergies: NKDA Fam Hx: [place] (father) DM, HTN Soc Hx: former smoker, denies alcohol use and drug use, lives with family and does not work; denies recent travel/sick contacts; disabled since 2011 PMD: None Cardio: Elkind Pain management: Bunn Present on Admission - Present on Admission Any Indicators Present on Admission: No Review of Systems - Constitutional Constitutional: As Per HPI, Chills, Weight Loss, Weakness. absent: Fever - EENT Eyes: As Per HPI. absent: Blurred Vision Ears: As Per HPI, Dizziness Nose/Mouth/Throat: As Per HPI. absent: Sore Throat - Cardiovascular Cardiovascular: As Per HPI, Chest Pain, Chest Pain with Activity, Dyspnea, Dyspnea on Exertion, Palpitations. absent: Edema, Leg Edema, Pedal Edema - Respiratory Respiratory: As Per HPI, Cough, Dyspnea, Dyspnea on Exertion. absent: Wheezing , Pain on Inspiration, Chest Congestion - Gastrointestinal Gastrointestinal: As Per HPI, Constipation, Nausea, Vomiting. absent: Abdominal Pain, Diarrhea - Genitourinary Genitourinary: As Per HPI, Urinary Hesitance. absent: Dysuria, Hematuria, Pyuria - Musculoskeletal Musculoskeletal: As Per HPI, Back Pain, Radiating Pain into Limb (R arm). absent: Numbness, Tingling - Integumentary Integumentary: As Per HPI. absent: Dry Skin - Neurological Neurological: As Per HPI, Dizziness, Headaches - Endocrine Endocrine: As Per HPI. absent: Polydipsia, Polyphagia, Polyuria - Hematologic/Lymphatic Hematologic: As Per HPI. absent: Easy Bleeding, Easy Bruising, Lymphadenopathy Past Patient History - Infectious Disease Hx of Infectious Diseases: None - Tetanus Immunizations Tetanus Immunization: Unknown - Past Social History Smoking Status: Never Smoked - CARDIAC Hx Cardiac Disorders: Yes Hx Angina: Yes Hx Hypertension: Yes Hx Internal Defibrillator: Yes (06/2013 aicd) Hx Pacemaker: Yes (06/2013 aicd) Other/Comment: mi 2008/2011/6 months ago,cabg 1 vessel 2009 - PULMONARY Hx Bronchitis: Yes Hx Chronic Obstructive Pulmonary Disease (COPD): Yes - NEUROLOGICAL Hx Neurological Disorder: No - HEENT Hx HEENT Problems: Yes (sinus problem) - RENAL Hx Chronic Kidney Disease: No - ENDOCRINE/METABOLIC Hx Endocrine Disorders: No - HEMATOLOGICAL/ONCOLOGICAL Hx Blood Disorders: No - INTEGUMENTARY Hx Dermatological Problems: No - MUSCULOSKELETAL/RHEUMATOLOGICAL Hx Back Pain: Yes (chronic) Hx Falls: Yes Hx Herniated Disk: Yes (lower back) Other/Comment: laminectomy 2011 - GASTROINTESTINAL Hx Gastroesophageal Reflux: Yes - GENITOURINARY/GYNECOLOGICAL Hx Genitourinary Disorders: No - PSYCHIATRIC Hx Psychophysiologic Disorder: Yes Hx Anxiety: Yes Hx Bipolar Disorder: Yes Hx Substance Use: No - SURGICAL HISTORY Hx Cardiac Catheterization: Yes (28 or 30 pt and lost count) Hx Coronary Stent: Yes (x2) - ANESTHESIA Hx Anesthesia: Yes Hx Anesthesia Reactions: No Meds Allergies/Adverse Reactions: Allergies Allergy/AdvReac Type Severity Reaction Status Date / Time No Known Allergies Allergy Verified 08/31/17 07:57 Physical Exam - Constitutional Appears: In Acute Distress, Chronically Ill - Head Exam Head Exam: ATRAUMATIC, NORMAL INSPECTION, NORMOCEPHALIC - Eye Exam Eye Exam: EOMI, Normal appearance, PERRL. absent: Conjunctival injection, Scleral icterus Pupil Exam: NORMAL ACCOMODATION - ENT Exam ENT Exam: Mucous Membranes Dry - Neck Exam Neck exam: Positive for: Normal Inspection - Respiratory Exam Respiratory Exam: Clear to Auscultation Bilateral, NORMAL BREATHING PATTERN. absent: Accessory Muscle Use, Chest Wall Tenderness, Rales, Rhonchi, Wheezes, Respiratory Distress - Cardiovascular Exam Cardiovascular Exam: REGULAR RHYTHM, RRR, +S1, +S2. absent: Bradycardia, Tachycardia - GI/Abdominal Exam GI & Abdominal Exam: Normal Bowel Sounds, Soft. absent: Firm, Guarding, Rigid, Tenderness - Rectal Exam Rectal Exam: Deferred - Extremities Exam Extremities exam: Positive for: normal capillary refill, normal inspection, pedal pulses present. Negative for: pedal edema - Neurological Exam Neurological exam: Alert, CN II-XII Intact, Oriented x3 - Psychiatric Exam Psychiatric exam: Anxious - Skin Skin Exam: Dry, Intact, Pallor, Pallor, Warm Results - Vital Signs Recent Vital Signs: Last Vital Signs Temp 97.6 F 08/31/17 07:50 Pulse 86 08/31/17 08:10 Resp 24 08/31/17 07:50 BP 119/79 08/31/17 08:10 Pulse Ox 99 08/31/17 07:50 - Labs Result Diagrams: 08/31/17 08:05 08/31/17 08:05 Labs: Laboratory Results - last 24 hr 08/31/17 08/31/17 08/31/17 08:05 08:05 08:05 WBC 7.5 D RBC 4.86 Hgb 13.8 L Hct 40.4 L MCV 83.1 MCH 28.4 MCHC 34.2 RDW 14.9 H Plt Count 287 MPV 9.4 Gran % 69.0 H Lymph % (Auto) 23.0 Wise % (Auto) 6.8 H Eos % (Auto) 0.9 L Baso % (Auto) 0.3 Gran # 5.17 Lymph # (Auto) 1.7 Wise # (Auto) 0.5 Eos # (Auto) 0.1 Baso # (Auto) 0.02 PT 11.9 INR 1.03 APTT 27.7 Sodium 140 Potassium 3.1 L Chloride 98 Carbon Dioxide 24 Anion Gap 21 H BUN 14 Creatinine 0.8 Est GFR ( Amer) > 60 Est GFR (Non-Af Amer) > 60 Random Glucose 125 H Calcium 9.4 Magnesium 1.8 Total Bilirubin 0.8 AST 28 ALT 19 Alkaline Phosphatase 58 Lactate Dehydrogenase 443 Total Creatine Kinase 67 Troponin I < 0.01 NT-Pro-B Natriuret Pep 793 H Total Protein 7.7 Albumin 4.6 Globulin 3.0 Albumin/Globulin Ratio 1.5 Assessment & Plan - Assessment and Plan (Free Text) Assessment: 51yo male extensive PMHx of CABG, CAD with stents, multiple cardiac catheterizations, AICD, [place], COPD, HTN, back pain, peptic ulcer disease, anxiety disorder presents to [facility] with unrelenting chest pain with associated nausea/ vomiting for 1 week. Plan: Chest pain r/o ACS -suspicion for unstable angina -therapeutic lovenox 60mg sc q12 -first troponin negative f/u trop x 2 -EKG showed sinus tach with no acute ST changes -Cardio Dr. Paris consulted Electrolyte abnl -replete as needed Hx of CAD with stents -f/u HgbA1c -continue home meds Hx of HTN -continue home meds Hx of HLD -f/u lipid panel -continue home meds Hx of PUD -continue home meds Hx of anxiety -continue home meds Hx of chronic pain -Patient has pain management doctor outpatient -Dilaudid 4mg po q4 summer -Dilaudid 2mg ivp q2 prn -Morphine 30mg po bid -continue home meds Hx of constipation -continue home meds Hx of urinary retention -continue home meds GI ppx: Protonix 40mg ivp qd DVT ppx: SCDs Diet: CLD Discussed with Dr. Sari Wright PGY2 <Linda Guo - Last Filed: 08/31/17 14:49> Results - Vital Signs Recent Vital Signs: Last Vital Signs Temp 97 F L 08/31/17 12:00 Pulse 84 08/31/17 12:00 Resp 26 H 08/31/17 12:00 BP 152/93 H 08/31/17 12:00 Pulse Ox 99 08/31/17 12:00 - Labs Result Diagrams: 08/31/17 08:05 08/31/17 08:05 Labs: Laboratory Results - last 24 hr 08/31/17 08/31/17 09:19 13:35 Phosphorus 1.0 L* Troponin I < 0.01 Attending/Attestation - Attestation I have personally seen and examined this patient.: Yes I have fully participated in the care of the patient.: Yes I have reviewed all pertinent clinical information: Yes Notes (Text): 08/31/17 14:44 Medical record note made by the resident after discussion with my direction and input after the patient was personally seen and examined by me. I have reviewed the chart and agree that the record accurately reflects by personal performance of the history, physical exam, data review, and medical decision-making, in the course for the patient. I have also personally directed the plan of care. 51 yrs old Male with PMH of severe CADm SP CABG, SP multiple cardiac stent placement,SP AICD , COPD, HTN, anxiety, and opioid dependency is admitted with chest pain and SOB on exertion.Patient is on heart transplant list, and he is on maximum anti anginal therapy.His EKG is negative for new ischemic changes , troponins are normal , cardiology is planning for transfer patient to [facility]. We will get serial cardiac marker, he has been started on IV hydromorphone by cardiology.We will continue ASA/Effient/metoprolol/statin/.Imdur /Ranexa and will also start patient on therapeutic anticoagulation. Management plan was discussed in detail with patient and family. Education was provided. 08/31/17 14:48
[2017-08-31] MEDS ORDERED: HYDROmorphone 0.5 mg/0.5 ml ISec IVP STA (09:08)
[2017-08-31] MEDS ORDERED: Non Formulary Medication (Ranolazine [Ranexa] 1,000 MG) PO SCH (10:00)
[2017-08-31] MEDS ORDERED: Non Formulary Medication (Metoprolol Tartrate [Lopressor] 100 MG) PO SCH (10:00)
[2017-08-31] MEDS ORDERED: Potassium Phosphate 15 MMOLE in Sodium Chloride 0.9% 250 ML IVPB ONE (10:11)
[2017-08-31] MEDS ORDERED: HYDROmorphone 2 mg/ml ISec IVP PRN (11:00)
--- NOTE | 2017-08-31 11:01 | CON ---
DATE: 08/31/2017 REASON FOR CONSULTATION: Chest pain, body pains, nausea and vomiting. HISTORY OF PRESENT ILLNESS: The patient is a chronic pain patient with severe cardiac and discogenic disease, who complains of multiple pains almost constantly. He is under the care of Dr. Bunn and is on high-dose pain medications. He is also followed in [place] for cardiac problems including CAD, LV dysfunction, ICD management and cardiac transplantation listing. He complains of severe chest pain, worse the last few days, much worse today. Came to the emergency room with nausea, vomiting, diffuse body aches and shortness of breath. PAST MEDICAL HISTORY: Notable for coronary artery disease, multiple coronary interventions, most of them done at [place] by Dr. Moreira. More recently, he has been under the care of Dr. Vasquez and is on a cardiac transplantation list. He has had a denervation procedure for cardiac pain control. He has an ICD, which is followed in the [facility] as well. He has severe LV dysfunction, discogenic disease, hyperlipidemia, peptic ulcer disease. MEDICATIONS AT THE TIME OF ADMISSION: Include Ranexa, Colace, Dilaudid p.o., aspirin, Effient, Flomax, Isordil, Lasix, Lipitor, metoprolol, Lyrica, MiraLax, morphine sulfate p.o., nitroglycerin p.r.n., Protonix, fenofibrate, Valium, tizanidine, Zetia. ALLERGIES: THERE ARE NO KNOWN MEDICATION ALLERGIES. SOCIAL HISTORY: He lives at home with his . 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 He is frequently bedridden because of pain. He no longer smokes. He is not drinking alcohol significantly. FAMILY HISTORY: Noncontributory. REVIEW OF SYSTEMS: Ten-point review of systems otherwise unremarkable. PHYSICAL EXAMINATION: GENERAL: He is a well-developed male, complaining of pain and nausea, lying on his stretcher in the emergency room, his is at his side. VITAL SIGNS: Notable for sinus tachycardia 100 beats per minute, afebrile, 119/79. HEENT: Reveals no neck vein distention, thyromegaly, carotid bruit. Mucous membranes moist. Conjunctivae pink. NECK: Supple. LUNGS: Lung fontanez clear to auscultation. HEART: Examination of the heart revealed normal first and second heart sounds. ABDOMEN: Soft. Bowel sounds present. No mass, organomegaly, tenderness, rebound, guarding, CVA tenderness, palpable abdominal aortic aneurysm. EXTREMITIES: Revealed no cyanosis, clubbing or edema. NEUROLOGIC: He is awake and alert. PSYCHIATRIC: Normal as to mood and affect. SKIN: Warm and dry. No rash or cellulitis. LABORATORY AND IMAGING: His chest x-ray reveals no evidence of congestive heart failure or infiltrate. It is read as no active disease. EKG demonstrates sinus tachycardia, 102 beats per minute, Q wave in III, ST-T wave changes consistent with ischemia. White count normal, hemoglobin 13.8, hematocrit 40.4, platelet count 287,000. PT, INR, PTT normal. Electrolytes notable for potassium of 3.1. BUN and creatinine normal. Blood sugar 125. Phosphorus low at 1. LFTs unremarkable. CK is 67. Troponin less than 0.01. BNP 793. IMPRESSION: Lul Snell is a 51-year-old man with chronic pain, on high-dose narcotics for pain relief, who experiences both chest pain and back pain, who also has experienced severe pain with active peptic ulcer disease as well as with coronary ischemia and discgenic disease, who was admitted through the emergency room. There is no evidence of an acute myocardial infarction at this time. We will replace his potassium. He is getting analgesia with IV Dilaudid as a stat dose and as needed. We will continue his p.o. analgesics including oral morphine and Dilaudid. I will continue his usual cardiac medications including Colace, aspirin, Effient, Flomax, isosorbide, Lasix, metoprolol, Lipitor, Lyrica, Miralax, Protonix, Ranexa, Tricor, Zetia. He is getting Zofran as needed. We will get serial EKGs and enzymes. When his pain has stabilized, I will get an echocardiogram. He will be considered for transfer to [facility] for further consideration of cardiac transplantation, etc I will follow along with you. I will made additional recommendations based on his clinical course. Kvng Paris MD [facility] # [id number] MTDD
[2017-08-31] MEDS: Morphine 15 mg Immediate Release Tab PO SCH ×2 (11:54→18:56)
[2017-08-31] MEDS: Potassium & Sodium Phosphate PO SCH ×3 (11:55→18:40)
[2017-08-31] MEDS: Non Formulary Medication (Ranolazine [Ranexa] 1,000 MG) PO SCH ×2 (11:55→18:40)
[2017-08-31] MEDS ORDERED: HYDROmorphone 0.5 mg/0.5 ml ISec IVP PRN (11:55)
[2017-08-31] MEDS: POLYETHYLENE GLYCOL 3350 17 GM/Dose PACKET PO SCH (11:59)
[2017-08-31] MEDS ORDERED: Home Med 1 UNIT TD PRN (12:00)
[2017-08-31] MEDS: Potassium Chloride 20 mEq ER Tab PO SCH ×2 (12:26→18:39)
[2017-08-31] MEDS: HYDROmorphone 2 mg/ml ISec IVP PRN ×3 (12:28→20:24)
[2017-08-31] MEDS: Enoxaparin 60 mg Syringe SC SCH (13:55)
[2017-08-31] MEDS ORDERED: Pneumococcal 23-Valent Vaccine IM ONE (19:16)
--- NOTE | 2017-08-31 20:31 | CARD ---
APPROVED REPORT EKG Measurement Heart [id number] <Conclusion> Sinus tachycardia Possible Left atrial enlargement Inferior infarct, age undetermined nonspecific anterior ST changes Abnormal ECG
[2017-09-01] MEDS: Enoxaparin 60 mg Syringe SC SCH ×2 (02:23→15:12)
[2017-09-01] MEDS: HYDROmorphone 2 mg/ml ISec IVP PRN ×2 (04:08→09:52)
[2017-09-01 05:52] VITALS: O2SAT 97
[2017-09-01 06:59] LABS: BASO # 0.01 K/mm3 (0.0-2.0); BASO % 0.2 % (0.0-3.0); EOS # 0.1 (0.0-0.7); EOS % 2.7 % (1.5-5.0); GRAN # 2.51 (1.4-6.5); GRAN % 56.9 % (50.0-68.0); HEMOGLOBIN 12.2 g/dL (14.0-18.0); LYMPH # 1.3 (1.2-3.4); LYMPH % 29.3 % (22.0-35.0); MEAN CELL VOLUME 85.5 fl (80.0-105.0); MEAN CORPUSCULAR HEMOGLOBIN 27.7 pg (25.0-35.0); MEAN CORPUSCULAR HGB CONC 32.4 g/dl (31.0-37.0); MEAN PLATELET VOLUME 8.8 fl (7.0-11.0); MONO # 0.5 (0.1-0.6); MONO % 10.9 % (1.0-6.0); RBC 4.41 10^6/uL (3.5-6.1); RED CELL DISTRIBUTION WIDTH 15.7 % (11.5-14.5); WHITE BLOOD COUNT 4.4 10^3/ul (4.5-11.0)
[2017-09-01] MEDS: Pantoprazole 40 mg EC Tab PO SCH (07:06)
[2017-09-01 07:34] LABS: LDL CHOLESTEROL 156 mg/dL (0-129)
[2017-09-01 07:36] LABS: FREE T4 1.35 ng/dL (0.78-2.19)
[2017-09-01 07:43] LABS: ALB/GLOB RATIO 1.4 (1.1-1.8); ALBUMIN 4.1 g/dL (3.0-4.8); ALT/SGPT 24 U/L (7-56); AST/SGOT 26 U/L (17-59); BLOOD UREA NITROGEN 13 mg/dL (7-21); CALCIUM 8.7 mg/dL (8.4-10.5); GFR AFRICAN-AMERICAN > 60; GFR NON-AFRICAN AMERICAN > 60; HDL CHOLESTEROL 37 mg/dL (29-60)
--- NOTE | 2017-09-01 08:45 | CP.PCM.PN ---
Subjective - Date & Time of Evaluation Date of Evaluation: 09/01/17 Time of Evaluation: 07:00 - Subjective Subjective: Stable on 2R. Still having spasms of severe pain despite oral and IV narcotics. V/S noted. RSR PE: Lungs: clear Cor.: S1S2 Abd.: soft Ext.: no edema Neuro.: alert Labs noted. Trops neg X 3, K+= 4.1. Phos. = 3.7, LDL = 156, TFTs NL. Objective - Vital Signs/Intake and Output Vital Signs (last 24 hours): Temp Pulse Resp BP Pulse Ox 97.6 F 71 20 109/77 97 09/01/17 05:51 09/01/17 05:51 09/01/17 05:51 09/01/17 05:51 09/01/17 05:51 - Medications Medications: Current Medications Aspirin (Ecotrin) 81 mg PO DAILY [facility] Last Admin: 08/31/17 11:53 Dose: Not Given Atorvastatin Calcium (Lipitor) 80 mg PO DIN [facility] Last Admin: 08/31/17 18:39 Dose: 80 mg Docusate Sodium (Colace) 100 mg PO TID [facility] Last Admin: 08/31/17 18:40 Dose: 100 mg Ezetimibe (Zetia) 10 mg PO DAILY [facility] Last Admin: 08/31/17 12:00 Dose: 10 mg Enoxaparin Sodium (Lovenox) 60 mg SC Q12H [facility] PRN Reason: Protocol Stop: 09/01/17 13:30 Last Admin: 09/01/17 02:23 Dose: 60 mg Fenofibrate (Tricor) 145 mg PO DAILY [facility] Last Admin: 08/31/17 12:00 Dose: 145 mg Furosemide (Lasix) 20 mg PO BID [facility] Last Admin: 08/31/17 18:39 Dose: 20 mg Hydromorphone HCl (Dilaudid) 4 mg PO Q4H [facility] Last Admin: 09/01/17 06:49 Dose: 4 mg Hydromorphone HCl (Dilaudid) 2 mg IVP Q2H PRN PRN Reason: Pain, severe (8-10) Last Admin: 09/01/17 04:08 Dose: 2 mg Isosorbide Mononitrate (Imdur) 60 mg PO DAILY [facility] Last Admin: 08/31/17 11:57 Dose: 60 mg Metoprolol Tartrate (Lopressor) 100 mg PO BID [facility] Last Admin: 08/31/17 18:40 Dose: 100 mg Morphine Sulfate (Morphine Immediate Release Tab) 30 mg PO BID [facility] Last Admin: 08/31/17 18:56 Dose: 30 mg Non-Formulary Medication (Ranolazine [Ranexa]) 1,000 mg PO BID [facility] Last Admin: 08/31/17 18:40 Dose: Not Given Ondansetron HCl (Zofran Inj) 4 mg IVP Q6H PRN PRN Reason: Nausea/Vomiting Last Admin: 09/01/17 04:07 Dose: 4 mg Pantoprazole Sodium (Protonix Ec Tab) 40 mg PO 0600 [facility] Last Admin: 09/01/17 07:06 Dose: 40 mg Polyethylene Glycol (Miralax) 17 gm PO DAILY [facility] Last Admin: 08/31/17 11:59 Dose: 17 gm Potassium Chloride (K-Dur 20 Meq Er Tab) 30 meq PO BID [facility] Last Admin: 08/31/17 18:39 Dose: 30 meq Prasugrel (Effient) 10 mg PO DAILY [facility] Last Admin: 08/31/17 11:54 Dose: Not Given Pregabalin (Lyrica) 50 mg PO BID [facility] Last Admin: 08/31/17 18:43 Dose: Not Given Tamsulosin HCl (Flomax) 0.4 mg PO DAILY [facility] Last Admin: 08/31/17 11:54 Dose: Not Given Tizanidine HCl (Zanaflex) 4 mg PO BID [facility] Last Admin: 08/31/17 18:40 Dose: 4 mg - Labs Labs: PT 11.9 SECONDS (9.4-12.5) 08/31/17 08:05 INR 1.03 (0.93-1.08) 08/31/17 08:05 APTT 27.7 Seconds (25.1-36.5) 08/31/17 08:05 Assessment and Plan - Assessment and Plan (Free Text) Assessment: Chest and Body Pain Nausea and vomiting DARBY Chronic Pain Syndrome CAD/Multiple PCIs/MIs/LVD ICD Severe discogenic disease HBP HLD PUD, H/O gastric Ulcer Plan: Check echo to update LV fx. Continue IV and PO Analgesia Contact [facility] Heart Transplant Team re; transfer to their care (Dr. Mcnamara) Continue cardiac meds. Monitor labs, I/O, sats., etc.
[2017-09-01] MEDS: Potassium Chloride 20 mEq ER Tab PO SCH ×2 (09:46→17:19)
[2017-09-01] MEDS: POLYETHYLENE GLYCOL 3350 17 GM/Dose PACKET PO SCH (09:48)
[2017-09-01] MEDS: Non Formulary Medication (Ranolazine [Ranexa] 1,000 MG) PO SCH ×2 (09:50→17:22)
--- NOTE | 2017-09-01 10:35 | CP.PCM.PN ---
<DuanenilsonShayne garnett - Last Filed: 09/01/17 13:37> Subjective - Date & Time of Evaluation Date of Evaluation: 09/01/17 Time of Evaluation: 10:33 - Subjective Subjective: Patient seen and examined this AM. Patient reports chest pain and back pain. Reports chronic issue that he sees a pain management physician. Patient also endorses nausea and poor appetite. Denies fever, chills, abdominal pain, shortness of breath. Objective - Vital Signs/Intake and Output Vital Signs (last 24 hours): Temp Pulse Resp BP Pulse Ox 97.6 F 65 20 133/102 H 97 09/01/17 05:51 09/01/17 09:47 09/01/17 05:51 09/01/17 09:49 09/01/17 05:51 - Medications Medications: Current Medications Aspirin (Ecotrin) 81 mg PO DAILY [facility] Last Admin: 09/01/17 09:49 Dose: 81 mg Atorvastatin Calcium (Lipitor) 80 mg PO DIN [facility] Last Admin: 08/31/17 18:39 Dose: 80 mg Docusate Sodium (Colace) 100 mg PO TID [facility] Last Admin: 09/01/17 09:48 Dose: 100 mg Ezetimibe (Zetia) 10 mg PO DAILY [facility] Last Admin: 09/01/17 09:49 Dose: 10 mg Enoxaparin Sodium (Lovenox) 60 mg SC Q12H [facility] PRN Reason: Protocol Stop: 09/01/17 13:30 Last Admin: 09/01/17 02:23 Dose: 60 mg Fenofibrate (Tricor) 145 mg PO DAILY [facility] Last Admin: 09/01/17 09:49 Dose: 145 mg Furosemide (Lasix) 20 mg PO BID [facility] Last Admin: 09/01/17 09:49 Dose: 20 mg Hydromorphone HCl (Dilaudid) 4 mg PO Q4H [facility] Last Admin: 09/01/17 06:49 Dose: 4 mg Hydromorphone HCl (Dilaudid) 2 mg IVP Q2H PRN PRN Reason: Pain, severe (8-10) Last Admin: 09/01/17 09:52 Dose: 2 mg Isosorbide Mononitrate (Imdur) 60 mg PO DAILY [facility] Last Admin: 09/01/17 09:49 Dose: 60 mg Metoprolol Tartrate (Lopressor) 100 mg PO BID [facility] Last Admin: 09/01/17 09:47 Dose: 100 mg Morphine Sulfate (Morphine Immediate Release Tab) 30 mg PO BID [facility] Last Admin: 08/31/17 18:56 Dose: 30 mg Non-Formulary Medication (Ranolazine [Ranexa]) 1,000 mg PO BID [facility] Last Admin: 09/01/17 09:50 Dose: Not Given Ondansetron HCl (Zofran Inj) 4 mg IVP Q6H PRN PRN Reason: Nausea/Vomiting Last Admin: 09/01/17 09:52 Dose: 4 mg Pantoprazole Sodium (Protonix Ec Tab) 40 mg PO 0600 [facility] Last Admin: 09/01/17 07:06 Dose: 40 mg Polyethylene Glycol (Miralax) 17 gm PO DAILY [facility] Last Admin: 09/01/17 09:48 Dose: 17 gm Potassium Chloride (K-Dur 20 Meq Er Tab) 30 meq PO BID [facility] Last Admin: 09/01/17 09:46 Dose: 30 meq Prasugrel (Effient) 10 mg PO DAILY [facility] Last Admin: 09/01/17 09:49 Dose: 10 mg Pregabalin (Lyrica) 50 mg PO BID [facility] Last Admin: 09/01/17 09:52 Dose: Not Given Tamsulosin HCl (Flomax) 0.4 mg PO DAILY [facility] Last Admin: 09/01/17 09:47 Dose: 0.4 mg Tizanidine HCl (Zanaflex) 4 mg PO BID [facility] Last Admin: 09/01/17 09:49 Dose: 4 mg - Labs Labs: PT 11.9 SECONDS (9.4-12.5) 08/31/17 08:05 INR 1.03 (0.93-1.08) 08/31/17 08:05 APTT 27.7 Seconds (25.1-36.5) 08/31/17 08:05 - Constitutional Appears: No Acute Distress - Head Exam Head Exam: ATRAUMATIC, NORMAL INSPECTION, NORMOCEPHALIC - Eye Exam Eye Exam: EOMI, PERRL - Respiratory Exam Respiratory Exam: Clear to Ausculation Bilateral. absent: Rhonchi, Wheezes, Stridor - Cardiovascular Exam Cardiovascular Exam: REGULAR RHYTHM, +S1, +S2 - GI/Abdominal Exam GI & Abdominal Exam: Soft, Normal Bowel Sounds. absent: Distended, Firm, Rigid , Tenderness - Extremities Exam Extremities Exam: absent: Calf Tenderness, Pedal Edema - Neurological Exam Neurological Exam: Alert, Awake, Oriented x3 - Psychiatric Exam Psychiatric exam: Normal Mood - Skin Skin Exam: Dry, Warm Assessment and Plan - Assessment and Plan (Free Text) Assessment: 51yo male extensive PMHx of CABG, CAD with stents, multiple cardiac catheterizations, AICD, ID, COPD, HTN, back pain, peptic ulcer disease, anxiety disorder presents to [facility] with unrelenting chest pain with associated nausea/ vomiting for 1 week. Patient seen and evaluated by cardiology, awaiting transfer to [place]. Plan: Chest Pain rule out ACS in the setting of significant cardiac history Details: - Troponin negative x3 - Cardiology consulted, Dr. Paris following - history of angina, severe CAD with stenting, CABG, AICD placement, HTN Plan: - Cardiology recommending echocardiogram - Discontinue therapeutic lovenox - follow up with Dr. Paris and [place] transfer Hx of CAD - HgA1C - ASA, Effient - Metoprolol, Imdur Hx of HTN - lasix 20mg - imdur 60mg - Lopressor 100mg HLD - TG 186, CH 238, LDL 156, HDL 37 - Lipitor 80mg, Tricor 145mg, Zetia 10mg Chronic Pain - outpatient pain management: Dr. Bunn - will taper pain medications GI ppx: Protonix 40mg DVT ppx: Lovenox Diet: HHD Case and plan discussed with attending Edna Guerra PGY-1 <Linda Guo - Last Filed: 09/01/17 14:24> Objective - Vital Signs/Intake and Output Vital Signs (last 24 hours): Temp Pulse Resp BP Pulse Ox 97.6 F 64 18 134/93 H 97 09/01/17 05:51 09/01/17 12:00 09/01/17 12:00 09/01/17 12:00 09/01/17 05:51 - Medications Medications: Current Medications Aspirin (Ecotrin) 81 mg PO DAILY [facility] Last Admin: 09/01/17 09:49 Dose: 81 mg Atorvastatin Calcium (Lipitor) 80 mg PO DIN [facility] Last Admin: 08/31/17 18:39 Dose: 80 mg Docusate Sodium (Colace) 100 mg PO TID [facility] Last Admin: 09/01/17 09:48 Dose: 100 mg Ezetimibe (Zetia) 10 mg PO DAILY [facility] Last Admin: 09/01/17 09:49 Dose: 10 mg Fenofibrate (Tricor) 145 mg PO DAILY [facility] Last Admin: 09/01/17 09:49 Dose: 145 mg Furosemide (Lasix) 20 mg PO BID [facility] Last Admin: 09/01/17 09:49 Dose: 20 mg Hydromorphone HCl (Dilaudid) 4 mg PO Q4H [facility] Last Admin: 09/01/17 11:32 Dose: 4 mg Hydromorphone HCl (Dilaudid) 1 mg IVP Q4H PRN PRN Reason: Pain, severe (8-10) Last Admin: 09/01/17 14:09 Dose: 1 mg Isosorbide Mononitrate (Imdur) 60 mg PO DAILY [facility] Last Admin: 09/01/17 09:49 Dose: 60 mg Metoprolol Tartrate (Lopressor) 100 mg PO BID [facility] Last Admin: 09/01/17 09:47 Dose: 100 mg Morphine Sulfate (Morphine Immediate Release Tab) 30 mg PO BID [facility] Last Admin: 09/01/17 11:32 Dose: 30 mg Non-Formulary Medication (Ranolazine [Ranexa]) 1,000 mg PO BID [facility] Last Admin: 09/01/17 09:50 Dose: Not Given Ondansetron HCl (Zofran Inj) 4 mg IVP Q6H PRN PRN Reason: Nausea/Vomiting Last Admin: 09/01/17 14:08 Dose: 4 mg Pantoprazole Sodium (Protonix Ec Tab) 40 mg PO 0600 [facility] Last Admin: 09/01/17 07:06 Dose: 40 mg Polyethylene Glycol (Miralax) 17 gm PO DAILY [facility] Last Admin: 09/01/17 09:48 Dose: 17 gm Potassium Chloride (K-Dur 20 Meq Er Tab) 30 meq PO BID [facility] Last Admin: 09/01/17 09:46 Dose: 30 meq Prasugrel (Effient) 10 mg PO DAILY [facility] Last Admin: 09/01/17 09:49 Dose: 10 mg Pregabalin (Lyrica) 50 mg PO BID [facility] Last Admin: 09/01/17 09:52 Dose: Not Given Tamsulosin HCl (Flomax) 0.4 mg PO DAILY [facility] Last Admin: 09/01/17 09:47 Dose: 0.4 mg Tizanidine HCl (Zanaflex) 4 mg PO BID [facility] Last Admin: 09/01/17 09:49 Dose: 4 mg - Labs Labs: PT 11.9 SECONDS (9.4-12.5) 08/31/17 08:05 INR 1.03 (0.93-1.08) 08/31/17 08:05 APTT 27.7 Seconds (25.1-36.5) 08/31/17 08:05 Attending/Attestation - Attestation I have personally seen and examined this patient.: Yes I have fully participated in the care of the patient.: Yes I have reviewed all pertinent clinical information, including history, physical exam and plan: Yes Notes (Text): 09/01/17 14:18 Medical record note made by the resident after discussion with my direction and input after the patient was personally seen and examined by me. I have reviewed the chart and agree that the record accurately reflects by personal performance of the history, physical exam, data review, and medical decision-making, in the course for the patient. I have also personally directed the plan of care. 51 yrs old Male with PMH of severe CADm SP CABG, SP multiple cardiac stent placement,SP AICD , COPD, HTN, anxiety, and opioid dependency was admitted with chest pain and SOB on exertion.Patient is on heart transplant list, and he is on maximum anti anginal therapy.His EKG is negative for new ischemic changes , serial troponins are normal , is planning for transfer patient to [facility]. continue ASA/Effient/metoprolol/statin/.Imdur /Ranexa Management plan was discussed in detail with patient and family. Education was provided.
[2017-09-01] MEDS: Morphine 15 mg Immediate Release Tab PO SCH ×2 (11:32→17:20)
[2017-09-01] MEDS ORDERED: HYDROmorphone 2 mg/ml ISec IVP PRN (14:00)
--- NOTE | 2017-09-01 14:40 | CARD ---
APPROVED REPORT EXAM: Two-dimensional and M-mode echocardiogram with Doppler and color Doppler. INDICATION Chest Pain EVALUATE EF 2D DIMENSIONS Left Atrium (2D)3.1 (1.6-4.0cm)IVSd1.3 (0.7-1.1cm) LVDd5.0 (3.9-5.9cm)PWd1.3 (0.7-1.1cm) LVDs4.4 (2.5-4.0cm)FS (%) 11.7 % LVEF (%)25.6 (>50%) M-Mode DIMENSIONS Aortic Root3.70 (2.2-3.7cm)Aortic Cusp Exc.2.20 (1.5-2.0cm) Aortic Valve AoV Peak Uwywibiy96.3cm/Jammie Peak GR.3mmHg Mitral Valve MV E Aiyrzdrs19.6cm/sMV A Lthuksco84.2cm/sE/A ratio0.5 TDI Lateral E' Peak V7.41cm/sMedial E' Peak V3.80cm/sE/Lateral E'4.0 E/Medial E'7.8 Pulmonary Valve PV Peak Bkufifbx56.4cm/sPV Peak Grad.1mmHg Tricuspid Valve TR Peak Haepvmqq383vg/sRAP [id number] Peak Gr.16mmHg [id number] LEFT VENTRICLE The left ventricle is normal size. There is borderline concentric left ventricular hypertrophy. The systolic function is severely impaired. Septal hypokinesis Transmitral Doppler flow pattern is Grade I-abnormal relaxation pattern. No left ventricle thrombus noted on this study. RIGHT VENTRICLE The right ventricle is normal size. There is normal right ventricular wall thickness. RV Systolic function is moderately reduced. There is a pacemaker lead in the right ventricle. ATRIA The left atrium size is normal. The right atrium size is normal. AORTIC VALVE The aortic valve is mildly thickened. There is trace aortic regurgitation. There is no aortic valvular stenosis. MITRAL VALVE The mitral valve is mildly thickened. Mitral regurgitation is trace. There is no mitral valve stenosis. TRICUSPID VALVE The tricuspid valve is normal in structure. GREAT VESSELS The aortic root is normal in size. <Conclusion> The left ventricle is normal size. There is borderline concentric left ventricular hypertrophy. The systolic function is severely impaired. Septal hypokinesis Transmitral Doppler flow pattern is Grade I-abnormal relaxation pattern. RV Systolic function is moderately reduced.
--- NOTE | 2017-09-01 18:46 | CARD ---
APPROVED REPORT EKG Measurement Heart [id number] DC [id number] <Conclusion> Normal sinus rhythm Inferior infarct, age undetermined Abnormal ECG
[2017-09-01] MEDS: HYDROmorphone 1 mg/ml ISec IVP PRN (19:37)
[2017-09-02] MEDS: Pantoprazole 40 mg EC Tab PO SCH (06:02)
[2017-09-02] MEDS: HYDROmorphone 1 mg/ml ISec IVP PRN ×3 (06:02→16:13)
[2017-09-02 07:06] LABS: BASO # 0.02 K/mm3 (0.0-2.0); BASO % 0.3 % (0.0-3.0); EOS # 0.2 (0.0-0.7); EOS % 3.5 % (1.5-5.0); GRAN # 3.39 (1.4-6.5); GRAN % 59.3 % (50.0-68.0); HEMOGLOBIN 12.5 g/dL (14.0-18.0); LYMPH # 1.6 (1.2-3.4); LYMPH % 28.3 % (22.0-35.0); MEAN CORPUSCULAR HEMOGLOBIN 27.8 pg (25.0-35.0); MEAN CORPUSCULAR HGB CONC 32.3 g/dl (31.0-37.0); MEAN PLATELET VOLUME 9.5 fl (7.0-11.0); MONO # 0.5 (0.1-0.6); MONO % 8.6 % (1.0-6.0); RBC 4.5 10^6/uL (3.5-6.1); RED CELL DISTRIBUTION WIDTH 15.2 % (11.5-14.5); WHITE BLOOD COUNT 5.7 10^3/ul (4.5-11.0)
[2017-09-02 07:15] LABS: ALB/GLOB RATIO 1.4 (1.1-1.8); ALBUMIN 4.3 g/dL (3.0-4.8); ALT/SGPT 21 U/L (7-56); AST/SGOT 22 U/L (17-59); BLOOD UREA NITROGEN 12 mg/dL (7-21); GFR AFRICAN-AMERICAN > 60; GFR NON-AFRICAN AMERICAN > 60
[2017-09-02] MEDS: Potassium Chloride 20 mEq ER Tab PO SCH (11:17)
[2017-09-02] MEDS: Morphine 15 mg Immediate Release Tab PO SCH (11:18)
[2017-09-02] MEDS: Non Formulary Medication (Ranolazine [Ranexa] 1,000 MG) PO SCH (11:20)
[2017-09-02] MEDS: POLYETHYLENE GLYCOL 3350 17 GM/Dose PACKET PO SCH (11:20)
[2017-09-02 11:21] VITALS: BP 149/96
[2017-09-02 12:16] VITALS: PULSE 98; RESP 19; TEMP 97.5
--- NOTE | 2017-09-02 14:58 | CP.PCM.DIS ---
<Shayne Guerra - Last Filed: 09/02/17 14:53> Provider - Provider Date of Admission: 09/01/17 07:56 Attending physician: Linda Guo MD Consults: Cardiology: Dr. Paris Time Spent in preparation of Discharge (in minutes): 35 Diagnosis - Discharge Diagnosis (1) Chest pain Status: Chronic Priority: Medium (2) COPD bronchitis Status: Chronic (3) CHF (congestive heart failure) Status: Chronic (4) Chest pain syndrome Status: Chronic Priority: Low (5) Drug-seeking behavior Status: Acute Hospital Course - Lab Results Lab Results: Most Recent Lab Values WBC 5.7 10^3/ul (4.5-11.0) D 09/02/17 06:30 RBC 4.50 10^6/uL (3.5-6.1) 09/02/17 06:30 Hgb 12.5 g/dL (14.0-18.0) L 09/02/17 06:30 Hct 38.7 % (42.0-52.0) L 09/02/17 06:30 MCV 86.0 fl (80.0-105.0) 09/02/17 06:30 MCH 27.8 pg (25.0-35.0) 09/02/17 06:30 MCHC 32.3 g/dl (31.0-37.0) 09/02/17 06:30 RDW 15.2 % (11.5-14.5) H 09/02/17 06:30 Plt Count 217 10^3/uL (120.0-450.0) 09/02/17 06:30 MPV 9.5 fl (7.0-11.0) 09/02/17 06:30 Gran % 59.3 % (50.0-68.0) 09/02/17 06:30 Lymph % (Auto) 28.3 % (22.0-35.0) 09/02/17 06:30 Campbell % (Auto) 8.6 % (1.0-6.0) H 09/02/17 06:30 Eos % (Auto) 3.5 % (1.5-5.0) 09/02/17 06:30 Baso % (Auto) 0.3 % (0.0-3.0) 09/02/17 06:30 Gran # 3.39 (1.4-6.5) 09/02/17 06:30 Lymph # (Auto) 1.6 (1.2-3.4) 09/02/17 06:30 Campbell # (Auto) 0.5 (0.1-0.6) 09/02/17 06:30 Eos # (Auto) 0.2 (0.0-0.7) 09/02/17 06:30 Baso # (Auto) 0.02 K/mm3 (0.0-2.0) 09/02/17 06:30 PT 11.9 SECONDS (9.4-12.5) 08/31/17 08:05 INR 1.03 (0.93-1.08) 08/31/17 08:05 APTT 27.7 Seconds (25.1-36.5) 08/31/17 08:05 Sodium 137 mmol/L (132-148) 09/02/17 06:30 Potassium 4.2 mmol/L (3.6-5.0) 09/02/17 06:30 Chloride 99 mmol/L (98-107) 09/02/17 06:30 Carbon Dioxide 25 mmol/L (21-33) 09/02/17 06:30 Anion Gap 17 (10-20) 09/02/17 06:30 BUN 12 mg/dL (7-21) 09/02/17 06:30 Creatinine 0.8 mg/dl (0.8-1.5) 09/02/17 06:30 Est GFR ( Amer) > 60 09/02/17 06:30 Est GFR (Non-Af Amer) > 60 09/02/17 06:30 Random Glucose 79 mg/dL (70-110) 09/02/17 06:30 Hemoglobin A1c 5.6 % (4.2-6.5) 09/01/17 05:30 Calcium 9.0 mg/dL (8.4-10.5) 09/02/17 06:30 Phosphorus 3.7 mg/dL (2.5-4.5) 09/01/17 05:30 Magnesium 1.8 mg/dL (1.7-2.2) 08/31/17 08:05 Total Bilirubin 1.8 mg/dL (0.2-1.3) H 09/02/17 06:30 AST 22 U/L (17-59) 09/02/17 06:30 ALT 21 U/L (7-56) 09/02/17 06:30 Alkaline Phosphatase 53 U/L (38-126) 09/02/17 06:30 Lactate Dehydrogenase 443 U/L (333-699) 08/31/17 08:05 Total Creatine Kinase 67 U/L (35-230) 08/31/17 08:05 Troponin I 0.02 ng/mL D 08/31/17 20:20 NT-Pro-B Natriuret Pep 793 pg/mL (0-450) H 08/31/17 08:05 Total Protein 7.3 g/dL (5.8-8.3) 09/02/17 06:30 Albumin 4.3 g/dL (3.0-4.8) 09/02/17 06:30 Globulin 3.0 gm/dL 09/02/17 06:30 Albumin/Globulin Ratio 1.4 (1.1-1.8) 09/02/17 06:30 Triglycerides 186 mg/dL (35-160) H 09/01/17 05:30 Cholesterol 238 mg/dL (130-200) H 09/01/17 05:30 LDL Cholesterol Direct 156 mg/dL (0-129) H 09/01/17 05:30 HDL Cholesterol 37 mg/dL (29-60) 09/01/17 05:30 Free T4 1.35 ng/dL (0.78-2.19) 09/01/17 05:30 TSH 3rd Generation 1.58 mIU/mL (0.46-4.68) 09/01/17 05:30 - Hospital Course Hospital Course: 51 year old male, whose PMH includes HTN, pacemaker, COPD, cardiac catheterization, and coronary stents, who presented to the emergency department complaining of sharp chest pain and nausea vomiting. Patient was treated and evaluated in the ED and admitted for chest pain rule out and pain management. Patient troponin's were negative x 3 and EKG showed no ST segment elevations or depressions at time of admission. Patient was restarted on home medication by Chief Of Anesthesiology Dr. Paris. Cardiology was consulted and evaluated the patient with recommendations for echocardiogram and continued monitoring in patient. Patient echocardiogram showed reduced LVEF of 25%, septal hypokinesis, systolic function severely impaired and borderline concentric LVH. According to cardiology notes attempts were made to contact [place] heart transplant team. On second day of admission patient requested to be discharged home. Conversations with patient and Dr. Paris as well as patient and the primary care team the patient was discharged with plans for outpatient follow up. Discharge instructions, medication reconciliation and follow up appointment were discussed in detail. Patient was discharged home with follow up with forest firefighter and [facility] [facility] team within 2 weeks.Patient was in understanding and agreeable. At time of discharge patient reported improved chest discomfort, continued chronic pain associated with his vertebral spine, mild nausea. Patient denied abdominal pain, shortness of breath, palpitations, headache, fever, chills. At time of discharge patient was hemodynamically stable. This is a synopsis of the patient hospital course, see full chart for more details. - Date & Time of H&P Date of H&P: 08/31/16 Time of H&P: 09:07 Discharge Exam - Head Exam Head Exam: ATRAUMATIC, NORMAL INSPECTION, NORMOCEPHALIC - Eye Exam Eye Exam: EOMI, PERRL - ENT Exam ENT Exam: Mucous Membranes Moist - Respiratory Exam Respiratory Exam: Clear to PA & Lateral, NORMAL BREATHING PATTERN, UNREMARKABLE. absent: Wheezes, Stridor - Cardiovascular Exam Cardiovascular Exam: REGULAR RHYTHM, +S1, +S2 - GI/Abdominal Exam GI & Abdominal Exam: Normal Bowel Sounds, Soft. absent: Distended, Firm, Guarding, Tenderness - Extremities Exam Extremities exam: normal capillary refill, pedal pulses present - Neurological Exam Neurological exam: Alert, Oriented x3 Additional comments: motor and sensory grossly intact, patient able to move all four extremities past midline - Psychiatric Exam Psychiatric exam: Normal Affect, Normal Mood - Skin Skin Exam: Dry, Warm Discharge Plan - Follow Up Plan Condition: STABLE Disposition: HOME/ ROUTINE Instructions: Nausea and Vomiting, Adult (DC), Heart Transplant, Chest Pain (DC ) Additional Instructions: *Follow up with Chief Of Anesthesiology within 1 to 2 weeks upon discharge *Follow up with Pain management physician *Follow up with your primary care physician *Follow up with Cardiac team at [facility] in [facility] *Take medications as prescribed to you *Return to ED if you feel chest pain, shortness of breath, persistent fever, intolerable headache, fever, chills <Irfan,Mohammad - Last Filed: 09/03/17 15:47> Provider - Provider Date of Admission: 09/01/17 07:56 Attending physician: Linda Guo MD Hospital Course - Lab Results Lab Results: Most Recent Lab Values WBC 5.7 10^3/ul (4.5-11.0) D 09/02/17 06:30 RBC 4.50 10^6/uL (3.5-6.1) 09/02/17 06:30 Hgb 12.5 g/dL (14.0-18.0) L 09/02/17 06:30 Hct 38.7 % (42.0-52.0) L 09/02/17 06:30 MCV 86.0 fl (80.0-105.0) 09/02/17 06:30 MCH 27.8 pg (25.0-35.0) 09/02/17 06:30 MCHC 32.3 g/dl (31.0-37.0) 09/02/17 06:30 RDW 15.2 % (11.5-14.5) H 09/02/17 06:30 Plt Count 217 10^3/uL (120.0-450.0) 09/02/17 06:30 MPV 9.5 fl (7.0-11.0) 09/02/17 06:30 Gran % 59.3 % (50.0-68.0) 09/02/17 06:30 Lymph % (Auto) 28.3 % (22.0-35.0) 09/02/17 06:30 Campbell % (Auto) 8.6 % (1.0-6.0) H 09/02/17 06:30 Eos % (Auto) 3.5 % (1.5-5.0) 09/02/17 06:30 Baso % (Auto) 0.3 % (0.0-3.0) 09/02/17 06:30 Gran # 3.39 (1.4-6.5) 09/02/17 06:30 Lymph # (Auto) 1.6 (1.2-3.4) 09/02/17 06:30 Campbell # (Auto) 0.5 (0.1-0.6) 09/02/17 06:30 Eos # (Auto) 0.2 (0.0-0.7) 09/02/17 06:30 Baso # (Auto) 0.02 K/mm3 (0.0-2.0) 09/02/17 06:30 PT 11.9 SECONDS (9.4-12.5) 08/31/17 08:05 INR 1.03 (0.93-1.08) 08/31/17 08:05 APTT 27.7 Seconds (25.1-36.5) 08/31/17 08:05 Sodium 137 mmol/L (132-148) 09/02/17 06:30 Potassium 4.2 mmol/L (3.6-5.0) 09/02/17 06:30 Chloride 99 mmol/L (98-107) 09/02/17 06:30 Carbon Dioxide 25 mmol/L (21-33) 09/02/17 06:30 Anion Gap 17 (10-20) 09/02/17 06:30 BUN 12 mg/dL (7-21) 09/02/17 06:30 Creatinine 0.8 mg/dl (0.8-1.5) 09/02/17 06:30 Est GFR ( Amer) > 60 09/02/17 06:30 Est GFR (Non-Af Amer) > 60 09/02/17 06:30 Random Glucose 79 mg/dL (70-110) 09/02/17 06:30 Hemoglobin A1c 5.6 % (4.2-6.5) 09/01/17 05:30 Calcium 9.0 mg/dL (8.4-10.5) 09/02/17 06:30 Phosphorus 3.7 mg/dL (2.5-4.5) 09/01/17 05:30 Magnesium 1.8 mg/dL (1.7-2.2) 08/31/17 08:05 Total Bilirubin 1.8 mg/dL (0.2-1.3) H 09/02/17 06:30 AST 22 U/L (17-59) 09/02/17 06:30 ALT 21 U/L (7-56) 09/02/17 06:30 Alkaline Phosphatase 53 U/L (38-126) 09/02/17 06:30 Lactate Dehydrogenase 443 U/L (333-699) 08/31/17 08:05 Total Creatine Kinase 67 U/L (35-230) 08/31/17 08:05 Troponin I 0.02 ng/mL D 08/31/17 20:20 NT-Pro-B Natriuret Pep 793 pg/mL (0-450) H 08/31/17 08:05 Total Protein 7.3 g/dL (5.8-8.3) 09/02/17 06:30 Albumin 4.3 g/dL (3.0-4.8) 09/02/17 06:30 Globulin 3.0 gm/dL 09/02/17 06:30 Albumin/Globulin Ratio 1.4 (1.1-1.8) 09/02/17 06:30 Triglycerides 186 mg/dL (35-160) H 09/01/17 05:30 Cholesterol 238 mg/dL (130-200) H 09/01/17 05:30 LDL Cholesterol Direct 156 mg/dL (0-129) H 09/01/17 05:30 HDL Cholesterol 37 mg/dL (29-60) 09/01/17 05:30 Free T4 1.35 ng/dL (0.78-2.19) 09/01/17 05:30 TSH 3rd Generation 1.58 mIU/mL (0.46-4.68) 09/01/17 05:30 Attending/Attestation - Attestation I have personally seen and examined this patient.: Yes I have fully participated in the care of the patient.: Yes I have reviewed all pertinent clinical information, including history, physical exam and plan: Yes Notes (Text): 09/03/17 15:45 Medical record note made by the resident after discussion with my direction and input after the patient was personally seen and examined by me. I have reviewed the chart and agree that the record accurately reflects by personal performance of the history, physical exam, data review, and medical decision-making, in the course for the patient. I have also personally directed the plan of care. 51 yrs old Male with PMH of severe CADm SP CABG, SP multiple cardiac stent placement,SP AICD , COPD, HTN, anxiety, and opioid dependency was admitted with chest pain and SOB on exertion.Patient is on heart transplant list, and he is on maximum anti anginal therapy.His EKG was negative for new ischemic changes , serial troponins are normal , was planning for transfer patient to [facility], however today patient is feeling better and wants to go home and is planning to follow up with [facility] as out patient.He was also cleared by cardiology for discharge.We will continue current antianginal medications , ASA/Effient/metoprolol/statin/.Imdur /Ranexa . He will also follow up with PCP and . Management plan was discussed in detail with patient . Education was provided.
--- NOTE | 2017-09-02 15:29 | PN ---
DATE: 09/02/2017 SUBJECTIVE: The patient was seen lying in bed in telemetry. He continues to have spasms of chest and back pain. [place] was contacted yesterday; however, the call has not been returned as of yet. He is somewhat frustrated and would like to be discharged home if urgent transfer cannot be arranged. CURRENT MEDICATIONS: Remain Dilaudid 4 mg every 4 hours, Ecotrin, Effient 10 mg daily, Flomax 0.4 mg daily, Imdur 60 mg daily, Lasix 20 mg b.i.d., potassium 30 mEq b.i.d., Lipitor 80 mg daily, metoprolol 100 mg b.i.d., Lyrica 50 mg b.i.d., morphine sulfate 30 mg b.i.d., Protonix 40 mg daily, Ranexa 1000 mg b.i.d., TriCor 145 mg daily, Zanaflex 4 mg b.i.d., Zetia 10 mg daily. PHYSICAL EXAMINATION: GENERAL: He is an anxious appearing middle aged male. VITAL SIGNS: His blood pressure is 120/76, pulse of 76 and sinus, respirations are 16. He is afebrile. HEENT: Normocephalic and atraumatic. NECK: Supple. No JVD noted. CHEST: Clear to auscultation and percussion. HEART: PMI displaced laterally with soft tones noted. ABDOMEN: Soft, nontender. Normoactive bowel sounds. EXTREMITIES: No edema. DIAGNOSTIC DATA: Potassium is 4.2, BUN and creatinine are 12 and 0.8. White count 5.7, hemoglobin and hematocrit are 12.5 and 38.7, platelet count is 217,000. IMPRESSION: 1. Intractable chest pain syndrome with some optimal control despite large doses of analgesics as well as multivessel percutaneous coronary intervention and prior cardiac denervation procedure. 2. Coronary artery disease, status post bypass surgery and multivessel percutaneous coronary intervention. 3. Moderately severe left ventricular systolic dysfunction. 4. Status post ICD implant. RECOMMENDATIONS: He is currently on analgesic medicine should continue. If an urgent bed cannot be arranged at [facility], he will be discharged home today and outpatient evaluation will be planned. Bertram Uribe MD [facility] # [id number] JADE
== END 2017-09-02 17:29 | disposition home or self-care (01) | DRG 303 ==
LOC: ED 07:43 → ERH 09:02 → 2RSO 10:48 → OBSVTOIN 09-01 07:56
PROVIDERS: ADMIT Internal Medicine; ATTEND Internal Medicine
DX: I25.10 Atherosclerotic heart disease of native coronary artery without angina pectoris (principal); J44.9 Chronic obstructive pulmonary disease, unspecified; I11.0 Hypertensive heart disease with heart failure; I50.9 Heart failure, unspecified; K27.9 Peptic ulcer, site unspecified, unspecified as acute or chronic, without hemorrhage or perforation; G89.4 Chronic pain syndrome; M54.9 Dorsalgia, unspecified; M51.9 Unspecified thoracic, thoracolumbar and lumbosacral intervertebral disc disorder; F41.9 Anxiety disorder, unspecified; E78.5 Hyperlipidemia, unspecified; Z76.82 Awaiting organ transplant status; Z95.5 Presence of coronary angioplasty implant and graft; Z95.810 Presence of automatic (implantable) cardiac defibrillator; I25.2 Old myocardial infarction; Z76.5 Malingerer [conscious simulation]; Z87.891 Personal history of nicotine dependence; Z95.1 Presence of aortocoronary bypass graft; Z79.82 Long term (current) use of aspirin

== ENCOUNTER 2018-03-01 07:20 | Inpatient (IN) | payer MEDICARE, BC ==
[2018-03-01] MEDS ORDERED: Morphine 4 mg/ml ISec IVP STA ×2 (08:07→10:14)
[2018-03-01 08:27] LABS: BASO # 0.04 K/mm3 (0.0-2.0); BASO % 0.6 % (0.0-3.0); EOS # 0.1 (0.0-0.7); EOS % 1.6 % (1.5-5.0); GRAN # 3.75 (1.4-6.5); GRAN % 55.4 % (50.0-68.0); HEMOGLOBIN 13.3 g/dL (14.0-18.0); LYMPH # 2.3 (1.2-3.4); LYMPH % 33.3 % (22.0-35.0); MEAN CELL VOLUME 88.4 fl (80.0-105.0); MEAN CORPUSCULAR HEMOGLOBIN 29.6 pg (25.0-35.0); MEAN CORPUSCULAR HGB CONC 33.5 g/dl (31.0-37.0); MEAN PLATELET VOLUME 9.7 fl (7.0-11.0); MONO # 0.6 (0.1-0.6); MONO % 9.1 % (1.0-6.0); RBC 4.49 10^6/uL (3.5-6.1); RED CELL DISTRIBUTION WIDTH 13.5 % (11.5-14.5); WHITE BLOOD COUNT 6.8 10^3/uL (4.5-11.0)
[2018-03-01 08:47] LABS: INR 1.06; PROTHROMBIN TIME 12.2 SECONDS (9.4-12.5)
[2018-03-01 08:48] LABS: ALB/GLOB RATIO 1.3 (1.1-1.8); ALBUMIN 4.4 g/dL (3.0-4.8); ALT/SGPT 19 U/L (7-56); AST/SGOT 24 U/L (17-59); BLOOD UREA NITROGEN 17 mg/dL (7-21); CALCIUM 9.8 mg/dL (8.4-10.5); GFR NON-AFRICAN AMERICAN > 60; LIPASE 115 U/L (23-300); PARTIAL THROMBOPLASTIN TIME 27.5 Seconds (25.1-36.5)
[2018-03-01 08:51] LABS: TROPONIN I < 0.01 ng/mL
--- NOTE | 2018-03-01 09:07 | ED PDOC ---
Arrival/HPI - General Chief Complaint: Abdominal Pain Time Seen by Provider: 03/01/18 07:46 Historian: Patient, Spouse - History of Present Illness Narrative History of Present Illness (Text): 03/01/18 08:07 51 year old male, with extensive PMHx of CABG, CAD with stents, multiple cardiac catheterizations, AICD, ND, COPD, HTN, back pain, peptic ulcer disease, and anxiety disorder, presents to the Emergency department accompanied by complaining of abdominal pain associated with nausea and vomiting since past couple weeks. Patient informs exacerbation of symptoms for past 3 days prompting him to present to the Emergency department for medical evaluation. Patient informs chronic chest pain but denies any other associated medical complaints. Patient denies any fevers, chills, headache, dizziness, shortness of breath, dyspnea on exertion, cough, diarrhea, back pain, neck pain, changes in bowel movement, hematochezia, hematuria, urinary output changes, dysuria or any other complaint. Sound Art Instructor: Dr. Paris Time/Duration: > week Symptom Onset: Gradual Symptom Course: Unchanged Quality: Aching Activities at Onset: Light Context: Home Past Medical History - Provider Review Nursing Documentation Reviewed: Yes - Infectious Disease Hx of Infectious Diseases: None - Tetanus Immunization Tetanus Immunization: Unknown - Cardiac Hx Cardiac Disorders: Yes Hx Angina: Yes Hx Hypertension: Yes Hx Internal Defibrillator: Yes (06/2013 aicd) Hx Pacemaker: Yes (06/2013 aicd) Other/Comment: mi / months ago,cabg 1 vessel 2009 - Pulmonary Hx Respiratory Disorders: Yes (USED TO SMOKE CIGARETTES QUIT) Hx Bronchitis: Yes Hx Chronic Obstructive Pulmonary Disease (COPD): Yes - Neurological Hx Neurological Disorder: No - HEENT Hx HEENT Disorder: Yes (sinus problem) - Renal Hx Renal Disorder: No - Endocrine/Metabolic Hx Endocrine Disorders: No - Hematological/Oncological Hx Blood Disorders: No - Integumentary Hx Dermatological Disorder: No - Musculoskeletal/Rheumatological Hx Musculoskeletal Disorders: Yes Hx Back Pain: Yes (chronic-MULTIPLE EPIDURALS) Hx Falls: Yes Hx Herniated Disk: Yes (lower back) Other/Comment: laminectomy 2011 - Gastrointestinal Hx Gastrointestinal Disorders: Yes Hx Gastroesophageal Reflux: Yes - Genitourinary/Gynecological Hx Genitourinary Disorders: No - Psychiatric Hx Psychophysiologic Disorder: Yes Hx Anxiety: Yes Hx Bipolar Disorder: Yes Hx Substance Use: No - Surgical History Hx Cardiac Catheterization: Yes (28 or 30 pt and lost count) Hx Coronary Stent: Yes (x2) - Anesthesia Hx Anesthesia: Yes Hx Anesthesia Reactions: No Hx Malignant Hyperthermia: No - Suicidal Assessment Feels Threatened In Home Enviroment: No Family/Social History - Physician Review Nursing Documentation Reviewed: Yes Family/Social History: Unknown Family HX Smoking Status: Former Smoker Hx Alcohol Use: No Hx Substance Use: No Allergies/Home Meds Allergies/Adverse Reactions: Allergies No Known Allergies Allergy (Verified 08/31/17 15:24) Home Medications: Home Meds Medication Instructions Recorded Confirmed RX: Aspirin [Ecotrin] 81 mg PO DAILY 06/10/16 03/01/18 RX: Fenofibrate Nanocrystallized 145 mg PO DAILY 06/10/16 03/01/18 [Tricor] RX: Furosemide [Lasix] 20 mg PO BID 06/10/16 03/01/18 RX: HYDROmorphone [Dilaudid] 4 mg PO Q4H 06/10/16 03/01/18 RX: Morphine [Morphine Immediate 30 mg PO BID 06/10/16 03/01/18 Release Tab] RX: Nitroglycerin [Nitrostat] 0.4 mg SL PRN PRN 06/10/16 03/01/18 RX: diaZEpam [Valium] 5 mg PO Q12 06/10/16 03/01/18 RX: Docusate [Colace] 100 mg PO TID 09/30/16 03/01/18 RX: Metoprolol Tartrate [Lopressor] 100 mg PO BID 09/30/16 03/01/18 RX: Pregabalin [Lyrica] 50 mg PO BID 08/31/17 03/01/18 RX: Ranolazine [Ranexa] 1,000 mg PO BID 08/31/17 03/01/18 RX: Tamsulosin [Flomax] 0.4 mg PO DAILY 08/31/17 03/01/18 RX: tiZANidine [Zanaflex] 4 mg PO BID 08/31/17 03/01/18 Review of Systems - Physician Review All systems were reviewed & negative as marked: Yes - Review of Systems Constitutional: absent: Fevers Respiratory: absent: SOB, Cough Gastrointestinal: Abdominal Pain, Nausea, Vomiting. absent: Diarrhea Genitourinary Male: absent: Dysuria, Hematuria, Urinary Output Changes Musculoskeletal: absent: Back Pain, Neck Pain Neurological: absent: Headache, Dizziness Physical Exam - Physical Exam Narrative Physical Exam (Text): 03/01/18 08:07 Gen: VS reviewed, alert, cachectic, nontoxic, mild distress. ENT: normal pharynx. Eye: EOMI, PERRL. Neck: no JVD, supple, no adenopathy. CV: regular rate, regular rhythm, no rubs, no murmur, no gallops, S1, S2, pulses equal and strong. Pulm: no distress, clear to auscultation, no wheeze, no rhonchi, breath sounds equal, no rales. Abd: diffuse abdominal tenderness with guarding. No rigidity. Ext: no edema. Skin: good color, no rash, no cyanosis. Psych: responds appropriately to questions, normal affect. Neuro: oriented x 3, CN2-12 intact grossly, motor intact, sensation intact. Vital Signs Reviewed: Yes Vital Signs Temp Pulse Resp BP Pulse Ox 03/01/18 09:01 82 18 118/78 100 03/01/18 07:28 98.4 F 89 18 120/80 100 Temperature: Afebrile Blood Pressure: Normal Pulse: Regular Respiratory Rate: Normal Appearance: Positive for: Non-Toxic, Comfortable, Cachectic Pain Distress: Mild Mental Status: Positive for: Alert and Oriented X 3 Medical Decision Making ED Course and Treatment: 03/01/18 08:07 Impression: 52 year old male presents to the Emergency department complaining of abdominal pain, nausea and vomiting. Plan: -- Labs -- CTA -- EKG -- Chest X-ray -- Morphine -- KCl -- Zofran -- Reassess and disposition Prior Visits: Notes and results from previous visits were reviewed. Progress Notes: 03/01/18 10:15 patient moaning with recurrent pain, will redose morphine for analgesia. at this time am awaiting Ct result. It is presumed the patient will require admission due to intractable pain and intractable vomiting. 03/01/18 11:29 admit accepted by hospitalist, dr. coppola, admit to tele as the patient has an extensive cardiac hx. - Critical Care Critical Care Minutes: 30 minutes (critical care fore repeated bedside evaluations and potential critical illness) - Lab Interpretations Lab Results: 03/01/18 07:45 03/01/18 07:45 Lab Results 03/01/18 08:20: Blood Type Pending, Antibody Screen Pending, BBK History Checked Patient has bt 03/01/18 07:45: PT 12.2, INR 1.06, APTT 27.5 03/01/18 07:45: WBC 6.8, RBC 4.49, Hgb 13.3 L, Hct 39.7 L, MCV 88.4, MCH 29.6, MCHC 33.5, RDW 13.5, Plt Count 289, MPV 9.7, Gran % 55.4, Lymph % (Auto) 33.3, [place] % (Auto) 9.1 H, Eos % (Auto) 1.6, Baso % (Auto) 0.6, Gran # 3.75, Lymph # (Auto) 2.3, [place] # (Auto) 0.6, Eos # (Auto) 0.1, Baso # (Auto) 0.04 03/01/18 07:45: Sodium 139, Potassium 2.8 L* D, Chloride 96 L, Carbon Dioxide 32, Anion Gap 14, BUN 17, Creatinine 0.8, Est GFR ( Amer) > 60, Est GFR (Non-Af Amer) > 60, Random Glucose 122 H, Calcium 9.8, Magnesium 1.8, Total Bilirubin 1.1, AST 24, ALT 19, Alkaline Phosphatase 59, Troponin I < 0.01 D, Total Protein 7.8, Albumin 4.4, Globulin 3.4, Albumin/Globulin Ratio 1.3, Lipase 115 - RAD Interpretation Narrative RAD Interpretations (Text): 03/01/18 11:13 CTA reviewed by radiologist, shows: FINDINGS: CT ANGIOGRAPHY: No aortic atherosclerotic calcification or mural plaque present. ABDOMINAL AORTA:: MAJOR AORTIC BRANCHES: Celiac [place]: Unremarkable. Superior mesenteric artery: Unremarkable. Inferior mesenteric artery: Unremarkable. Renal arteries: Unremarkable. PELVIC ARTERIES: Right Common Iliac: Unremarkable. Right External Iliac: Unremarkable. Right Internal Iliac: Unremarkable. Left Common Iliac: Unremarkable. Left External Iliac: Unremarkable. Left Internal Iliac: Unremarkable. RIGHT LOWER EXTREMITY ARTERIES: Right Common Femoral: Unremarkable. Right Superficial Femoral: Unremarkable. Right Profunda Femoris: Unremarkable. Right Popliteal:Unremarkable. Right Anterior Tibial: Unremarkable. Right Tibioperoneal Trunk: Unremarkable. Right Posterior Tibial: Unremarkable. Right Peroneal: Unremarkable. Right dorsalis pedis : Unremarkable. LEFT LOWER EXTREMITY ARTERIES: Left Common Femoral: Unremarkable. Left Superficial Femoral: Unremarkable. Left Profunda Femoris: Unremarkable. Left Popliteal: Unremarkable. Left Anterior Tibial: Unremarkable. Left Tibioperoneal Trunk: Unremarkable. Left Posterior Tibial: Unremarkable. Left Peronea: Unremarkable. Left Dorsalis pedis: Unremarkable. NON-ANGIOGRAPHIC ASPECT OF THE EXAM: LOWER THORAX: Unremarkable. LIVER: Unremarkable. No gross lesion or ductal dilatation. GALLBLADDER AND BILE DUCTS: Unremarkable. PANCREAS: Unremarkable. No gross lesion or ductal dilatation. SPLEEN: Unremarkable. ADRENALS: Unremarkable. No mass. KIDNEYS AND URETERS: Unremarkable. No hydronephrosis. No solid mass. STOMACH AND BOWEL: Unremarkable. No obstruction. No gross mural thickening. APPENDIX: Normal appendix. PERITONEUM: Unremarkable. No free fluid. No free air. LYMPH NODES: Unremarkable. No enlarged lymph nodes. BLADDER: Unremarkable. REPRODUCTIVE: Unremarkable. BONES: No acute fracture. OTHER FINDINGS: None. IMPRESSION: No evidence of dissection. 03/01/18 11:30 Chest X-ray reviewed by radiologist, shows: FINDINGS: LUNGS: No active pulmonary disease. PLEURA: No significant pleural effusion identified, no pneumothorax apparent. CARDIOVASCULAR: Mild aortic tortuosity and minimal calcification Normal cardiac size. No pulmonary vascular congestion. OSSEOUS STRUCTURES: Sternal wires VISUALIZED UPPER ABDOMEN: Normal. OTHER FINDINGS: Pacemaker IMPRESSION: No active disease. Radiology Orders: 03/01/18 08:07 ANGIOGRAPHY DISECTION PROTOCOL [CT] Stat CHEST PORTABLE [RAD] Stat Fairing Worker: Radiologist - EKG Interpretation EKG Interpretation (Text): 03/01/18 10:38 0724: sinus rhythm at 84 bpm, nml qrs, artifact, nonspecific t wave abn Interpreted by ED Physician: Yes - Medication Orders Current Medication Orders: Potassium Chloride (Potassium Chloride 20 Meq/100 Ml) 20 meq in 100 mls @ 50 mls/hr IVPB Q2H ALEC Stop: 03/01/18 12:59 Discontinued Medications Morphine Sulfate (Morphine) 4 mg IVP STAT STA Stop: 03/01/18 08:08 Last Admin: 03/01/18 08:13 Dose: 4 mg AMILCAR Pain Assessment Document 03/01/18 08:13 BARRETT (Rec: 03/01/18 08:13 BARRETT [id number]) Pain Reassessment Is this a pain reassessment? No Sleep Is patient sleeping during reassessment? No Presence of Pain Presence of Pain Yes IVP Administration Document 03/01/18 08:13 BARRETT (Rec: 03/01/18 08:13 [id number][facility] Charges for Administration # of IVP Administrations 1 Ondansetron HCl (Zofran Inj) 4 mg IVP STAT STA Stop: 03/01/18 08:08 Last Admin: 03/01/18 08:12 Dose: 4 mg IVP Administration Document 03/01/18 08:12 BARRETT (Rec: 03/01/18 08:13 [facility] [id number]) Charges for Administration # of IVP Administrations 1 Ondansetron HCl (Zofran Inj) 4 mg IVP STAT STA Stop: 03/01/18 08:24 - Scribe Statement The provider has reviewed the documentation as recorded by the Scribe Mali Coles. All medical record entries made by the Scribe were at my direction and persona lly dictated by me. I have reviewed the chart and agree that the record accurately reflects my personal performance of the history, physical exam, medical decision making, and the department course for this patient. I have also personally directed, reviewed, and agree with the discharge instructions and disposition. Disposition/Present on Arrival - Present on Arrival Any Indicators Present on Arrival: No History of DVT/PE: No History of Uncontrolled Diabetes: No Urinary Catheter: No History of Decub. Ulcer: No History Surgical Site Infection Following: None - Disposition Have Diagnosis and Disposition been Completed?: Yes Diagnosis: Intractable abdominal pain, Intractable vomiting with nausea Disposition: HOSPITALIZED Disposition Time: 11:30 Patient Plan: Admission Patient Problems: Current Active Problems Problem Status Onset Intractable abdominal pain Acute Intractable vomiting with nausea Acute Condition: STABLE Forms: [employer] (Estonian)
[2018-03-01] MEDS ORDERED: Pantoprazole 40 mg EC Tab PO SCH (10:00)
--- NOTE | 2018-03-01 10:26 | CT ---
Date of service: 03/01/2018 PROCEDURE: CT Angiography Abdomen, Pelvis and Lower Extremity with Contrast HISTORY: aortic dissection COMPARISON: None. TECHNIQUE: Technique: CT angiography of the abdomen, pelvis and bilateral lower extremities performed in the arterial phase of enhancement. Coronal and sagittal reformats, and well as rotating MIP images of the vessels generated at the workstation. Intravenous contrast dose: Radiation dose: Total exam DLP = 454.0 mGy-cm. This CT exam was performed using one or more of the following dose reduction techniques: Automated exposure control, adjustment of the mA and/or kV according to patient size, and/or use of iterative reconstruction technique. FINDINGS: CT ANGIOGRAPHY: No aortic atherosclerotic calcification or mural plaque present. ABDOMINAL AORTA:: MAJOR AORTIC BRANCHES: Celiac [place]: Unremarkable. Superior mesenteric artery: Unremarkable. Inferior mesenteric artery: Unremarkable. Renal arteries: Unremarkable. PELVIC ARTERIES: Right Common Iliac: Unremarkable. Right External Iliac: Unremarkable. Right Internal Iliac: Unremarkable. Left Common Iliac: Unremarkable. Left External Iliac: Unremarkable. Left Internal Iliac: Unremarkable. RIGHT LOWER EXTREMITY ARTERIES: Right Common Femoral: Unremarkable. Right Superficial Femoral: Unremarkable. Right Profunda Femoris: Unremarkable. Right Popliteal:Unremarkable. Right Anterior Tibial: Unremarkable. Right Tibioperoneal Trunk: Unremarkable. Right Posterior Tibial: Unremarkable. Right Peroneal: Unremarkable. Right dorsalis pedis : Unremarkable. LEFT LOWER EXTREMITY ARTERIES: Left Common Femoral: Unremarkable. Left Superficial Femoral: Unremarkable. Left Profunda Femoris: Unremarkable. Left Popliteal: Unremarkable. Left Anterior Tibial: Unremarkable. Left Tibioperoneal Trunk: Unremarkable. Left Posterior Tibial: Unremarkable. Left Peronea: Unremarkable. Left Dorsalis pedis: Unremarkable. NON-ANGIOGRAPHIC ASPECT OF THE EXAM: LOWER THORAX: Unremarkable. LIVER: Unremarkable. No gross lesion or ductal dilatation. GALLBLADDER AND BILE DUCTS: Unremarkable. PANCREAS: Unremarkable. No gross lesion or ductal dilatation. SPLEEN: Unremarkable. ADRENALS: Unremarkable. No mass. KIDNEYS AND URETERS: Unremarkable. No hydronephrosis. No solid mass. STOMACH AND BOWEL: Unremarkable. No obstruction. No gross mural thickening. APPENDIX: Normal appendix. PERITONEUM: Unremarkable. No free fluid. No free air. LYMPH NODES: Unremarkable. No enlarged lymph nodes. BLADDER: Unremarkable. REPRODUCTIVE: Unremarkable. BONES: No acute fracture. OTHER FINDINGS: None. IMPRESSION: No evidence of dissection.
--- NOTE | 2018-03-01 10:52 | CARD ---
APPROVED REPORT Date of service: 03/01/2018 EKG Measurement Heart [id number] <Conclusion> Normal sinus rhythm Nonspecific ST abnormality Abnormal ECG
--- NOTE | 2018-03-01 11:20 | RAD ---
Date of service: 03/01/2018 HISTORY: chest pain COMPARISON: 08/31/2017 FINDINGS: LUNGS: No active pulmonary disease. PLEURA: No significant pleural effusion identified, no pneumothorax apparent. CARDIOVASCULAR: Mild aortic tortuosity and minimal calcification Normal cardiac size. No pulmonary vascular congestion. OSSEOUS STRUCTURES: Sternal wires VISUALIZED UPPER ABDOMEN: Normal. OTHER FINDINGS: Pacemaker IMPRESSION: No active disease.
--- NOTE | 2018-03-01 12:26 | CON ---
DATE: 03/01/2018 INDICATIONS: Chest pain, abdominal pain, nausea, vomiting, weight loss, failure to thrive at home. HISTORY OF PRESENT ILLNESS: This is a 52-year-old man well known to me admitted with chest and abdominal pain, both are chronic complaints and have been longstanding. Recently, the chest pain got worse. He also has midepigastric and lower abdominal pain associated with nausea and vomiting. He is a chronic pain patient on high doses of narcotics. He has known coronary artery disease, a history of peptic ulcer disease. He has severe LV dysfunction and is on a cardiac transplantation list. He has an ICD implanted. There is chronic dyspnea on exertion and fatigue. There is no orthopnea, PND, syncope. No fever, chills, cough, sputum production, hemoptysis. No diarrhea, melena, constipation. PAST MEDICAL HISTORY: Notable for coronary artery disease with multiple coronary interventions, most of them done at [place] by Dr. Moreira and his team. Recently, he has been under the care of Dr. Vasquez and he is on the cardiac transplantation list. At one point, he had a cardiac denervation procedure done to try to control unrelenting chest pain. He has an ICD implant. He has had peptic ulcer disease with a large gastric ulcer documented in the past. He has chronic back pain due to severe diskogenic disease, severe LV dysfunction, hyperlipidemia. MEDICATIONS: At the time of admission include p.o. Dilaudid, aspirin, Effient, Flomax, Lasix b.i.d., Lipitor, metoprolol 100 mg b.i.d., Lipitor, MS Contin b.i.d., nitroglycerin p.r.n., fenofibrate, Zetia, Zanaflex, Valium, Protonix. ALLERGIES: THERE ARE NO MEDICATION ALLERGIES. SOCIAL HISTORY: He lives at home with his . He is disabled and virtually bedridden and housebound, except for doctor visits. He does not smoke any longer. He does not drink alcohol significantly. FAMILY HISTORY: Noncontributory. REVIEW OF SYSTEMS: A 10-point review of systems otherwise unremarkable except as noted above. PHYSICAL EXAMINATION: GENERAL: He is a frail white male in no acute distress, lying in bed, intermittently retching. VITAL SIGNS: He is afebrile. Blood pressure 118/78. He is in sinus rhythm, 82 beats per minute. HEENT AND NECK: Exam reveals no neck vein distention, thyromegaly, carotid bruits. Mucous membranes moist. Conjunctivae pink. Neck supple. LUNGS: Lung fontanez clear. CARDIOVASCULAR: Examination of the heart revealed normal first and second heart sounds. ABDOMEN: Soft. Diffuse tenderness. Bowel sounds are present. No mass, organomegaly, rebound or guarding. EXTREMITIES: Extremity exam revealed no cyanosis, clubbing, edema. NEUROLOGICAL: Awake, alert and oriented. PSYCHIATRIC: Normal as to mood and affect. SKIN: Warm and dry. No rash or cellulitis. LABORATORY DATA AND IMAGING STUDIES: Chest x-ray Is not interpreted yet. The lung fontanez appear clear to my view. A CT scan of the abdomen and pelvis, bilateral lower extremities to rule out aortic dissection was ordered by the ER physician. There was no evidence of dissection. EKG is not done yet. CBC is unremarkable. PT/INR, PTT unremarkable. Electrolytes notable for potassium of 2.8, BUN 17, creatinine 0.8, blood sugar 122, magnesium 1.8. LFTs unremarkable. Troponin normal. Lipase normal. IMPRESSION: Lul Snell is a 52-year-old man with chronic pain and underlying severe coronary artery disease, severe left ventricular dysfunction, history of peptic ulcer disease and chronic diskogenic back pain, on high dose daily narcotics with inadequate control of pain. PLAN: He is being admitted for evaluation of pain, rule out myocardial infarction, rule out peptic ulcer disease. We are considering transferring him to [facility] for further evaluation. He is a very complex patient and he has physicians there who follow him and have him listed on the cardiac transplantation list. His ICD is also followed there. In the meantime, we will continue his usual medications. I will add IV Dilaudid p.r.n. to his pain regimen. He should have a GI consultation and a pain management consultation. I will check his EKG. We will get serial enzymes. Potassium is being replaced vigorously. We will monitor Is and Os. and check stool for occult blood. I will follow along with you. I will make additional recommendations based on his clinical course. Kvng Paris MD [facility] # [id number] JADE
[2018-03-01] MEDS: Morphine 30 mg SR Tab PO SCH ×2 (12:27→22:43)
[2018-03-01] MEDS ORDERED: Dextrose 5%/0.45% NS 1,000 ML IV SCH (13:30)
[2018-03-01] MEDS ORDERED: Enoxaparin 30 mg Syringe SC SCH (13:30)
[2018-03-01] MEDS: Dextrose 5%/0.45% NS 1,000 ML IV SCH (13:45)
[2018-03-01] MEDS: cefTRIAXone 1 gm 1 GM/100 ML BAG IVPB SCH (13:46)
[2018-03-01] MEDS: Enoxaparin 40 mg Syringe SC SCH (13:59)
--- NOTE | 2018-03-01 14:21 | CP.PCM.HP ---
History of Present Illness - History of Present Illness History of Present Illness: 52 year old male with past medical history of CAD with multiple stents, CABG, AICD, DC, COPD, HTN, back pain, PUD, diverticulitis, and anxiety disorder presents to the hospital for 2 weeks of worsening abdominal pain. Pain started in the epigastric region and has become more diffuse. Patient states there was no inciting event and is rated a 10/10. Patient has been unable to tolerate any food for the last several days. Patient had his last bowel movement yesterday. Patient also states he has chronic chest pain, which he sees pain management for. Patient is on the heart transplant list at [place]. He has been to the hospital several times before for similar admissions. Admits to occasional dyspnea, nausea, vomiting. Denies fever, chills, dysuria, diarrhea, numbness, tingling. Past medical history: CABG, CAD with stents, AICD, DC, COPD, HTN, peptic ulcer disease, anxiety disorder Surgical history: CABG, AICD placement, multiple catheterizations and stent placement Medications: Reviewed, as per MAR Allergies: NKDA Family History: [place] (father) DM, HTN Social History: former smoker, denies alcohol use and drug use PMD: None Cardio: Dr. Paris Pain management: Dr. Bunn Present on Admission - Present on Admission Any Indicators Present on Admission: No Review of Systems - Review of Systems Review of Systems: 12 point ROS as per HPI, otherwise negative Past Patient History - Infectious Disease Hx of Infectious Diseases: None - Tetanus Immunizations Tetanus Immunization: Unknown - Past Social History Smoking Status: Former Smoker - CARDIAC Hx Cardiac Disorders: Yes Hx Angina: Yes Hx Hypertension: Yes Hx Internal Defibrillator: Yes (06/2013 aicd) Hx Pacemaker: Yes (06/2013 aicd) Other/Comment: mi 2008/2011/6 months ago,cabg 1 vessel 2009 - PULMONARY Hx Respiratory Disorders: Yes (USED TO SMOKE CIGARETTES QUIT) Hx Bronchitis: Yes Hx Chronic Obstructive Pulmonary Disease (COPD): Yes - NEUROLOGICAL Hx Neurological Disorder: No - HEENT Hx HEENT Problems: Yes (sinus problem) - RENAL Hx Chronic Kidney Disease: No - ENDOCRINE/METABOLIC Hx Endocrine Disorders: No - HEMATOLOGICAL/ONCOLOGICAL Hx Blood Disorders: No - INTEGUMENTARY Hx Dermatological Problems: No - MUSCULOSKELETAL/RHEUMATOLOGICAL Hx Musculoskeletal Disorders: Yes Hx Back Pain: Yes (chronic-MULTIPLE EPIDURALS) Hx Falls: Yes Hx Herniated Disk: Yes (lower back) Other/Comment: laminectomy 2012 - GASTROINTESTINAL Hx Gastrointestinal Disorders: Yes Hx Gastroesophageal Reflux: Yes - GENITOURINARY/GYNECOLOGICAL Hx Genitourinary Disorders: No - PSYCHIATRIC Hx Psychophysiologic Disorder: Yes Hx Anxiety: Yes Hx Bipolar Disorder: Yes Hx Substance Use: No - SURGICAL HISTORY Hx Cardiac Catheterization: Yes (28 or 30 pt and lost count) Hx Coronary Stent: Yes (x2) - ANESTHESIA Hx Anesthesia: Yes Hx Anesthesia Reactions: No Hx Malignant Hyperthermia: No Meds Allergies/Adverse Reactions: Allergies Allergy/AdvReac Type Severity Reaction Status Date / Time No Known Allergies Allergy Verified 08/31/17 15:24 Physical Exam - Constitutional Appears: Non-toxic, Unkempt - Head Exam Head Exam: ATRAUMATIC, NORMAL INSPECTION, NORMOCEPHALIC - Eye Exam Eye Exam: EOMI, Normal appearance - ENT Exam ENT Exam: Mucous Membranes Dry - Respiratory Exam Respiratory Exam: Clear to Auscultation Bilateral, NORMAL BREATHING PATTERN. absent: Rales, Rhonchi, Wheezes - Cardiovascular Exam Cardiovascular Exam: RRR, +S1, +S2 Additional comments: Midline sternum CABG scar - GI/Abdominal Exam GI & Abdominal Exam: Guarding, Normal Bowel Sounds, Soft, Tenderness (Diffuse). absent: Rebound, Rigid - Extremities Exam Extremities exam: Positive for: normal inspection. Negative for: pedal edema - Neurological Exam Neurological exam: Alert, CN II-XII Intact, Oriented x3 - Psychiatric Exam Psychiatric exam: Anxious, Normal Affect - Skin Skin Exam: Dry, Intact, Warm Results - Vital Signs Recent Vital Signs: Last Vital Signs Temp 98.4 F 03/01/18 07:28 Pulse 81 03/01/18 13:32 Resp 18 03/01/18 13:32 BP 142/98 H 03/01/18 13:32 Pulse Ox 98 03/01/18 13:32 - Labs Result Diagrams: 03/01/18 07:45 03/01/18 07:45 Labs: Laboratory Results - last 24 hr 03/01/18 03/01/18 03/01/18 07:45 07:45 07:45 WBC 6.8 RBC 4.49 Hgb 13.3 L Hct 39.7 L MCV 88.4 MCH 29.6 MCHC 33.5 RDW 13.5 Plt Count 289 MPV 9.7 Gran % 55.4 Lymph % (Auto) 33.3 [place] % (Auto) 9.1 H Eos % (Auto) 1.6 Baso % (Auto) 0.6 Gran # 3.75 Lymph # (Auto) 2.3 [place] # (Auto) 0.6 Eos # (Auto) 0.1 Baso # (Auto) 0.04 PT 12.2 INR 1.06 APTT 27.5 Sodium 139 Potassium 2.8 L* D Chloride 96 L Carbon Dioxide 32 Anion Gap 14 BUN 17 Creatinine 0.8 Est GFR ( Amer) > 60 Est GFR (Non-Af Amer) > 60 Random Glucose 122 H Calcium 9.8 Magnesium 1.8 Total Bilirubin 1.1 AST 24 ALT 19 Alkaline Phosphatase 59 Troponin I < 0.01 D Total Protein 7.8 Albumin 4.4 Globulin 3.4 Albumin/Globulin Ratio 1.3 Lipase 115 Blood Type Antibody Screen BBK History Checked 03/01/18 08:20 WBC RBC Hgb Hct MCV MCH MCHC RDW Plt Count MPV Gran % Lymph % (Auto) [place] % (Auto) Eos % (Auto) Baso % (Auto) Gran # Lymph # (Auto) [place] # (Auto) Eos # (Auto) Baso # (Auto) PT INR APTT Sodium Potassium Chloride Carbon Dioxide Anion Gap BUN Creatinine Est GFR ( Amer) Est GFR (Non-Af Amer) Random Glucose Calcium Magnesium Total Bilirubin AST ALT Alkaline Phosphatase Troponin I Total Protein Albumin Globulin Albumin/Globulin Ratio Lipase Blood Type O POSITIVE Antibody Screen Negative BBK History Checked Patient has bt Assessment & Plan - Assessment and Plan (Free Text) Plan: 52 year old male with past medical history of CAD with multiple stents, CABG, AICD, DC, COPD, HTN, back pain, PUD, diverticulitis, and anxiety disorder presents with chest pain r/o ACS in high risk patient and abdominal pain. 1. Chest pain r/o ACS Trend troponins x3, initial negative Echocardiogram pending Lovenox [address] Paris following Continue home medications 2. Abdominal pain Abdominal CTA negative Start Rocephin and Flagyl for possible diverticulitis Dilaudid 4 mg PO q4h summer as per cardio Dilaudid 2 mg IV q2h prn as per cardio Procal ordered NPO except medications D51/2 NS @ 60 Zofran prn Protonix 3. CAD/CABG Continue Lasix, Lopressor, Effient 4. Hypokalemia Repleted KCl 30 meq daily Recheck in AM 5. Prophylaxis Lovenox Protonix Lily, PGY-3
[2018-03-01] MEDS: HYDROmorphone 2 mg/ml ISec IVP PRN ×2 (15:04→18:25)
--- NOTE | 2018-03-01 15:11 | CP.PCM.CON ---
<Perez Beasley - Last Filed: 03/01/18 16:48> History of Present Illness - History of Present Illness History of Present Illness: PGY-4 GI Fellow Consult Note Pt is a 52 yo [facility] including ischemic [employer] s/p AICD, CABG and Stenting (last stent >1 yr ago per patient reports, care mostly at [facility]), h/o Gastric Ulcer (5 years ago on EGD in [facility]), chronic pain (on narcotics), Anxiety, HTN, COPD presenting with complain of n/v and abd pain. He states for about the last 2 weeks he has had persistent N/V with 2-4 episodes per days, usually just throwing up whatever PO intake he had, occasionally he would have some bilious emesis, but denied any hematemesis. After N/V, he states that he also had epigastric pain that eventually worsened to diffuse, sharp abd pain. He doesn't states that symptoms are necessarily worse with PO intake, but rather whatever he tries to take in he end of throwing up. He reports usually daily formed bowel movements with the help of lubiprostone, states no change other than smaller less frequent BMs since the onset of these s ymptoms. He states that he had and EGD/CSPY about 3-5 yrs ago somewhere in [facility] but does not know any details other than he was told he had diverticulosis. he reports and associated decreased appetite and unsure about weight loss. He denies any dysphagia, odynophagia, melena, hematochezia. MHx: CABG, CAD with stents, AICD, [place], COPD, HTN, peptic ulcer disease, anxiety disorder SurgHx: CABG, AICD placement, multiple catheterizations and stent placement Medications: Reviewed, as per JUL Allergies: NKDA Family History: [place] (father) DM, HTN Social History: former smoker, denies alcohol use and drug use PMD: None Past Patient History - Infectious Disease Hx of Infectious Diseases: None - Tetanus Immunizations Tetanus Immunization: Unknown - Past Social History Smoking Status: Former Smoker - CARDIAC Hx Cardiac Disorders: Yes Hx Angina: Yes Hx Hypertension: Yes Hx Internal Defibrillator: Yes (06/2013 aicd) Hx Pacemaker: Yes (06/2013 aicd) Other/Comment: mi 2008/2011/6 months ago,cabg 1 vessel 2009 - PULMONARY Hx Respiratory Disorders: Yes (USED TO SMOKE CIGARETTES QUIT) Hx Bronchitis: Yes Hx Chronic Obstructive Pulmonary Disease (COPD): Yes - NEUROLOGICAL Hx Neurological Disorder: No - HEENT Hx HEENT Problems: Yes (sinus problem) - RENAL Hx Chronic Kidney Disease: No - ENDOCRINE/METABOLIC Hx Endocrine Disorders: No - HEMATOLOGICAL/ONCOLOGICAL Hx Blood Disorders: No - INTEGUMENTARY Hx Dermatological Problems: No - MUSCULOSKELETAL/RHEUMATOLOGICAL Hx Musculoskeletal Disorders: Yes Hx Back Pain: Yes (chronic-MULTIPLE EPIDURALS) Hx Falls: Yes Hx Herniated Disk: Yes (lower back) Other/Comment: laminectomy 2012 - GASTROINTESTINAL Hx Gastrointestinal Disorders: Yes Hx Gastroesophageal Reflux: Yes - GENITOURINARY/GYNECOLOGICAL Hx Genitourinary Disorders: No - PSYCHIATRIC Hx Psychophysiologic Disorder: Yes Hx Anxiety: Yes Hx Bipolar Disorder: Yes Hx Substance Use: No - SURGICAL HISTORY Hx Cardiac Catheterization: Yes (28 or 30 pt and lost count) Hx Coronary Stent: Yes (x2) - ANESTHESIA Hx Anesthesia: Yes Hx Anesthesia Reactions: No Hx Malignant Hyperthermia: No Meds Allergies/Adverse Reactions: Allergies Allergy/AdvReac Type Severity Reaction Status Date / Time No Known Allergies Allergy Verified 08/31/17 15:24 - Medications Medications: Current Medications Aspirin (Aspirin Chewable) 81 mg PO DAILY [facility] Last Admin: 03/01/18 10:57 Dose: Not Given Atorvastatin Calcium (Lipitor) 80 mg PO DIN [facility] Ezetimibe (Zetia) 10 mg PO DAILY [facility] Enoxaparin Sodium (Lovenox) 40 mg SC Q12H [facility] Last Admin: 03/01/18 13:59 Dose: 40 mg Fenofibrate (Tricor) 145 mg PO DAILY [facility] Furosemide (Lasix) 20 mg PO BID [facility] Hydromorphone HCl (Dilaudid) 4 mg PO Q4H [facility] Last Admin: 03/01/18 13:58 Dose: 4 mg Hydromorphone HCl (Dilaudid) 2 mg IVP Q2H PRN PRN Reason: Pain, severe (8-10) Metronidazole (Flagyl) 500 mg in 100 mls @ 100 mls/hr IVPB Q8 [facility]; Protocol Ceftriaxone Sodium (Rocephin 1 Gram Ivpb) 1 gm in 100 mls @ 100 mls/hr IVPB DAILY [facility]; Protocol Last Admin: 03/01/18 13:46 Dose: 100 mls/hr Dextrose/Sodium Chloride (Dextrose 5%/0.45% Ns 1000 Ml) 1,000 mls @ 60 mls/hr IV .[id number] [facility] Last Admin: 03/01/18 13:45 Dose: 60 mls/hr Metoprolol Tartrate (Lopressor) 100 mg PO BID [facility] Last Admin: 03/01/18 11:50 Dose: 100 mg Morphine Sulfate (Morphine Extended Release Tab) 30 mg PO Q12H [facility] Last Admin: 03/01/18 12:27 Dose: 30 mg Nitroglycerin (Nitrostat Sl Tab) 0.4 mg SL Q5M PRN PRN Reason: chest pain Ondansetron HCl (Zofran Inj) 4 mg IVP Q4H PRN PRN Reason: Nausea/Vomiting Pantoprazole Sodium (Protonix Ec Tab) 40 mg PO DAILY [facility] Last Admin: 03/01/18 10:59 Dose: Not Given Potassium Chloride (K-Dur 20 Meq Er Tab) 30 meq PO BID [facility] Prasugrel (Effient) 10 mg PO DAILY [facility] Last Admin: 03/01/18 10:58 Dose: Not Given Tamsulosin HCl (Flomax) 0.4 mg PO DAILY [facility] Last Admin: 03/01/18 10:58 Dose: Not Given Tizanidine HCl (Zanaflex) 4 mg PO BID [facility] Physical Exam - Constitutional Appears: Cachectic, Chronically Ill Additional comments: uncomfortable, dry heaving at times, one episode of bilious emesis during exam - Head Exam Head Exam: ATRAUMATIC, NORMAL INSPECTION - Eye Exam Eye Exam: EOMI. absent: Conjunctival injection, Scleral icterus - ENT Exam ENT Exam: Mucous Membranes Dry, Normal External Ear Exam. absent: Mucous Membranes Moist - Respiratory Exam Respiratory Exam: Clear to Auscultation Bilateral, NORMAL BREATHING PATTERN. absent: Accessory Muscle Use, Respiratory Distress Additional comments: palpable AICD - Cardiovascular Exam Cardiovascular Exam: Tachycardia, REGULAR RHYTHM - GI/Abdominal Exam GI & Abdominal Exam: Firm, Guarding, Normal Bowel Sounds, Rigid, Soft, Tenderness. absent: Bruit, Diminished Bowel Sounds, Distended, Hernia, Or ganomegaly, Pulsatile Mass, Rebound Additional comments: voluntary guarding with firm abdomen - Rectal Exam Rectal Exam: Deferred - Extremities Exam Extremities exam: Positive for: normal inspection. Negative for: pedal edema - Neurological Exam Neurological exam: Alert, CN II-XII Intact - Psychiatric Exam Psychiatric exam: Anxious, Normal Affect - Skin Skin Exam: Normal Color, Warm Results - Vital Signs Recent Vital Signs: Last Vital Signs Temp 98.4 F 03/01/18 07:28 Pulse 80 03/01/18 14:25 Resp 20 03/01/18 14:25 BP 110/77 03/01/18 14:25 Pulse Ox 97 03/01/18 14:25 - Labs Result Diagrams: 03/01/18 07:45 03/01/18 15:15 Labs: Laboratory Results - last 24 hr 03/01/18 03/01/18 03/01/18 07:45 07:45 07:45 WBC 6.8 RBC 4.49 Hgb 13.3 L Hct 39.7 L MCV 88.4 MCH 29.6 MCHC 33.5 RDW 13.5 Plt Count 289 MPV 9.7 Gran % 55.4 Lymph % (Auto) 33.3 [place] % (Auto) 9.1 H Eos % (Auto) 1.6 Baso % (Auto) 0.6 Gran # 3.75 Lymph # (Auto) 2.3 [place] # (Auto) 0.6 Eos # (Auto) 0.1 Baso # (Auto) 0.04 PT 12.2 INR 1.06 APTT 27.5 Sodium 139 Potassium 2.8 L* D Chloride 96 L Carbon Dioxide 32 Anion Gap 14 BUN 17 Creatinine 0.8 Est GFR ( Amer) > 60 Est GFR (Non-Af Amer) > 60 Random Glucose 122 H Calcium 9.8 Magnesium 1.8 Total Bilirubin 1.1 AST 24 ALT 19 Alkaline Phosphatase 59 Troponin I < 0.01 D Total Protein 7.8 Albumin 4.4 Globulin 3.4 Albumin/Globulin Ratio 1.3 Lipase 115 Blood Type Antibody Screen BBK History Checked 03/01/18 08:20 WBC RBC Hgb Hct MCV MCH MCHC RDW Plt Count MPV Gran % Lymph % (Auto) [place] % (Auto) Eos % (Auto) Baso % (Auto) Gran # Lymph # (Auto) [place] # (Auto) Eos # (Auto) Baso # (Auto) PT INR APTT Sodium Potassium Chloride Carbon Dioxide Anion Gap BUN Creatinine Est GFR ( Amer) Est GFR (Non-Af Amer) Random Glucose Calcium Magnesium Total Bilirubin AST ALT Alkaline Phosphatase Troponin I Total Protein Albumin Globulin Albumin/Globulin Ratio Lipase Blood Type O POSITIVE Antibody Screen Negative BBK History Checked Patient has bt Assessment & Plan - Assessment and Plan (Free Text) Assessment: 52 yo male with extensive cardiac history of ischemic [employer], CAD s/p CABG and stenting, h/o gastric ulcer, anxiety, HTN presenting with N/V and Abd Pain. # Nausea/Vomiting and Abd Pain: Unclear etiology. CTA of Abd+Pelvis without findings to explain. Pt reports BMs. No signs of active bleeding. Pt reports that N/V began first therefore wondering if abd pain more so related to chronic retching. Given h/o gastric ulcer, wondering if there is underlying stricture or obstruction. Plan: - IV PPI daily - NPO for now --- If abd pain improves, plan to advance to Liq Diet tomorrow - Cardiology evaluation - Only consider EGD should symptoms persist/worsen --- Would need cardiac and anesthesia evaluation prior to any endoscopy evaluation - Consider Gen Surg consult of course worsens/decompensates Pt seen and examined with Dr. Jaramillo. Please see attestation for further recs/changes. <Nirav Jaramillo - Last Filed: 03/01/18 17:14> Meds - Medications Medications: Current Medications Aspirin (Aspirin Chewable) 81 mg PO DAILY [facility] Last Admin: 03/01/18 10:57 Dose: Not Given Atorvastatin Calcium (Lipitor) 80 mg PO DIN [facility] Last Admin: 03/01/18 16:48 Dose: 80 mg Ezetimibe (Zetia) 10 mg PO DAILY [facility] Enoxaparin Sodium (Lovenox) 40 mg SC Q12H [facility] Last Admin: 03/01/18 13:59 Dose: 40 mg Fenofibrate (Tricor) 145 mg PO DAILY [facility] Furosemide (Lasix) 20 mg PO BID [facility] Hydromorphone HCl (Dilaudid) 4 mg PO Q4H [facility] Last Admin: 03/01/18 13:58 Dose: 4 mg Hydromorphone HCl (Dilaudid) 2 mg IVP Q2H PRN PRN Reason: Pain, severe (8-10) Last Admin: 03/01/18 15:04 Dose: 2 mg Metronidazole (Flagyl) 500 mg in 100 mls @ 100 mls/hr IVPB Q8 [facility]; Protocol Last Admin: 03/01/18 16:48 Dose: 100 mls/hr Ceftriaxone Sodium (Rocephin 1 Gram Ivpb) 1 gm in 100 mls @ 100 mls/hr IVPB DAILY [facility]; Protocol Last Admin: 03/01/18 13:46 Dose: 100 mls/hr Dextrose/Sodium Chloride (Dextrose 5%/0.45% Ns 1000 Ml) 1,000 mls @ 60 mls/hr IV .[id number] [facility] Last Admin: 03/01/18 13:45 Dose: 60 mls/hr Metoprolol Tartrate (Lopressor) 100 mg PO BID [facility] Last Admin: 03/01/18 11:50 Dose: 100 mg Morphine Sulfate (Morphine Extended Release Tab) 30 mg PO Q12H [facility] Last Admin: 03/01/18 12:27 Dose: 30 mg Nitroglycerin (Nitrostat Sl Tab) 0.4 mg SL Q5M PRN PRN Reason: chest pain Ondansetron HCl (Zofran Inj) 4 mg IVP Q4H PRN PRN Reason: Nausea/Vomiting Last Admin: 03/01/18 15:04 Dose: 4 mg Pantoprazole Sodium (Protonix Ec Tab) 40 mg PO DAILY [facility] Last Admin: 03/01/18 10:59 Dose: Not Given Potassium Chloride (K-Dur 20 Meq Er Tab) 30 meq PO BID [facility] Prasugrel (Effient) 10 mg PO DAILY [facility] Last Admin: 03/01/18 10:58 Dose: Not Given Tamsulosin HCl (Flomax) 0.4 mg PO DAILY [facility] Last Admin: 03/01/18 10:58 Dose: Not Given Tizanidine HCl (Zanaflex) 4 mg PO BID [facility] Results - Vital Signs Recent Vital Signs: Last Vital Signs Temp 98.9 F 03/01/18 16:40 Pulse 72 03/01/18 16:40 Resp 18 03/01/18 16:40 BP 125/88 03/01/18 16:40 Pulse Ox 97 03/01/18 14:25 - Labs Result Diagrams: 03/01/18 07:45 03/01/18 15:15 Labs: Laboratory Results - last 24 hr 03/01/18 03/01/18 03/01/18 07:45 07:45 07:45 WBC 6.8 RBC 4.49 Hgb 13.3 L Hct 39.7 L MCV 88.4 MCH 29.6 MCHC 33.5 RDW 13.5 Plt Count 289 MPV 9.7 Gran % 55.4 Lymph % (Auto) 33.3 [place] % (Auto) 9.1 H Eos % (Auto) 1.6 Baso % (Auto) 0.6 Gran # 3.75 Lymph # (Auto) 2.3 [place] # (Auto) 0.6 Eos # (Auto) 0.1 Baso # (Auto) 0.04 PT 12.2 INR 1.06 APTT 27.5 Sodium 139 Potassium 2.8 L* D Chloride 96 L Carbon Dioxide 32 Anion Gap 14 BUN 17 Creatinine 0.8 Est GFR ( Amer) > 60 Est GFR (Non-Af Amer) > 60 Random Glucose 122 H Calcium 9.8 Magnesium 1.8 Total Bilirubin 1.1 AST 24 ALT 19 Alkaline Phosphatase 59 Troponin I < 0.01 D Total Protein 7.8 Albumin 4.4 Globulin 3.4 Albumin/Globulin Ratio 1.3 Lipase 115 Blood Type Antibody Screen BBK History Checked 03/01/18 03/01/18 08:20 15:15 WBC RBC Hgb Hct MCV MCH MCHC RDW Plt Count MPV Gran % Lymph % (Auto) [place] % (Auto) Eos % (Auto) Baso % (Auto) Gran # Lymph # (Auto) [place] # (Auto) Eos # (Auto) Baso # (Auto) PT INR APTT Sodium 138 Potassium 3.4 L Chloride 97 L Carbon Dioxide 33 Anion Gap 12 BUN 14 Creatinine 0.9 Est GFR ( Amer) > 60 Est GFR (Non-Af Amer) > 60 Random Glucose 100 Calcium 9.4 Magnesium Total Bilirubin AST ALT Alkaline Phosphatase Troponin I 0.02 D Total Protein Albumin Globulin Albumin/Globulin Ratio Lipase Blood Type O POSITIVE Antibody Screen Negative BBK History Checked Patient has bt Attending/Attestation - Attestation I have personally seen and examined this patient.: Yes I have fully participated in the care of the patient.: Yes I have reviewed all pertinent clinical information: Yes Notes (Text): 03/01/18 17:07 I have seen and examined patient with GI fellow. Agree with above documentation with the following additions. In brief, this is a 52 year old male with history of advanced cardiac disease, CAD, CHF s/p ICD currently on cardiac transplantation list at [facility], COPD, HTN, anxiety, peptic ulcer disease who presents to hospital with complaint of progressive abdominal pain and vomiting for the past 2 weeks. He describes sharp 10/10 epigastric pain which is worse after attempted meal consumption. He reports having persistent bilious emesis during this time period and has also developed sharp midsternal chest pain with exertion. He denies fever/chills, weight loss, rectal bleeding, or change in bowel habits. He had an EGD/colonoscopy 3 years ago which showed gastric ulcer and diverticular disease as per patient. - All other comprehensive 12 point review of systems are negative aside from mentioned above CAD s/p stent on Effient CHF s/p ICD, on cardiac transplantation list COPD HTN Anxiety Abdominal pain, vomiting Chest pain - NPO - Continue with PPI therapy - Follow up cardiology recommendations - Patient would likely benefit from EGD evaluation given ongoing symptoms, however he is extremely high risk for endoscopic procedure with anesthesia given his extensive cardiac history. Therefore will defer procedure for time being, additionally patient is in process of potential transfer to [facility] where he receives cardiac consideration for transplant. - Will continue to monitor patient clinical course
[2018-03-01 15:29] LABS: BLOOD UREA NITROGEN 14 mg/dL (7-21); CALCIUM 9.4 mg/dL (8.4-10.5); GFR NON-AFRICAN AMERICAN > 60
[2018-03-01 15:39] LABS: TROPONIN I 0.02 ng/mL
[2018-03-01] MEDS: metroNIDAZOLE IV 500 mg/100 ml 500 MG/100 ML BAG IVPB SCH ×2 (16:48→22:15)
[2018-03-01] MEDS: Potassium Chloride 20 mEq ER Tab PO SCH (17:13)
[2018-03-01 17:49] VITALS: BMI 16.8
[2018-03-01] MEDS ORDERED: Influenza Vaccine 60 mcg/0.5 mL SYR (4YR UP) IM ONE (17:49)
[2018-03-01] MEDS ORDERED: Pneumococcal 23-Valent Vaccine IM ONE (17:49)
[2018-03-02] MEDS: HYDROmorphone 2 mg/ml ISec IVP PRN ×6 (00:54→22:07)
[2018-03-02] MEDS: Enoxaparin 40 mg Syringe SC SCH ×2 (00:55→16:50)
[2018-03-02] MEDS: metroNIDAZOLE IV 500 mg/100 ml 500 MG/100 ML BAG IVPB SCH ×2 (05:50→16:49)
[2018-03-02] MEDS: Dextrose 5%/0.45% NS 1,000 ML IV SCH (05:53)
[2018-03-02 07:09] LABS: HEMOGLOBIN 11.5 g/dL (14.0-18.0); MEAN CORPUSCULAR HEMOGLOBIN 29.4 pg (25.0-35.0); MEAN CORPUSCULAR HGB CONC 32.7 g/dl (31.0-37.0); MEAN PLATELET VOLUME 9.6 fl (7.0-11.0); RBC 3.91 10^6/uL (3.5-6.1); RED CELL DISTRIBUTION WIDTH 14.2 % (11.5-14.5); WHITE BLOOD COUNT 3.9 10^3/uL (4.5-11.0)
[2018-03-02 07:28] LABS: BLOOD UREA NITROGEN 13 mg/dL (7-21); CALCIUM 9.1 mg/dL (8.4-10.5); GFR NON-AFRICAN AMERICAN > 60
[2018-03-02] MEDS: cefTRIAXone 1 gm 1 GM/100 ML BAG IVPB SCH (09:40)
[2018-03-02] MEDS: Morphine 30 mg SR Tab PO SCH (09:40)
[2018-03-02] MEDS ORDERED: Potassium Chloride 20 mEq 100 ML IV SCH (10:00)
--- NOTE | 2018-03-02 10:31 | CP.PCM.PN ---
Subjective - Date & Time of Evaluation Date of Evaluation: 03/02/18 Time of Evaluation: 08:10 - Subjective Subjective: PGY-4 GI Fellow Prog Note Pt lying in bed when seen this AM. Still with N/V and abd pain, unchanged. Also reporting some CP which is not new for him. No BMs noted. 5 point ROS negative other than stated above Objective - Vital Signs/Intake and Output Vital Signs (last 24 hours): Temp Pulse Resp BP Pulse Ox 98.9 F 78 18 140/74 97 03/01/18 17:41 03/02/18 09:43 03/01/18 17:41 03/02/18 09:43 03/01/18 14:25 Intake and Output: 03/02/18 03/02/18 06:59 18:59 Intake Total 1200 Output Total 800 Balance 400 - Medications Medications: Current Medications Aspirin (Aspirin Chewable) 81 mg PO DAILY [facility] Last Admin: 03/02/18 09:41 Dose: 81 mg Atorvastatin Calcium (Lipitor) 80 mg PO DIN [facility] Last Admin: 03/01/18 16:48 Dose: 80 mg Ezetimibe (Zetia) 10 mg PO DAILY [facility] Last Admin: 03/02/18 09:41 Dose: 10 mg Enoxaparin Sodium (Lovenox) 40 mg SC Q12H [facility] Last Admin: 03/02/18 00:55 Dose: 40 mg Fenofibrate (Tricor) 145 mg PO DAILY [facility] Last Admin: 03/02/18 09:41 Dose: 145 mg Furosemide (Lasix) 20 mg PO BID [facility] Last Admin: 03/02/18 09:41 Dose: 20 mg Hydromorphone HCl (Dilaudid) 4 mg PO Q4H [facility] Last Admin: 03/02/18 08:39 Dose: Not Given Hydromorphone HCl (Dilaudid) 2 mg IVP Q2H PRN PRN Reason: Pain, severe (8-10) Last Admin: 03/02/18 08:41 Dose: 2 mg Metronidazole (Flagyl) 500 mg in 100 mls @ 100 mls/hr IVPB Q8 [facility]; Protocol Last Admin: 03/02/18 05:50 Dose: 100 mls/hr Ceftriaxone Sodium (Rocephin 1 Gram Ivpb) 1 gm in 100 mls @ 100 mls/hr IVPB DAILY [facility]; Protocol Last Admin: 03/02/18 09:40 Dose: 100 mls/hr Dextrose/Sodium Chloride (Dextrose 5%/0.45% Ns 1000 Ml) 1,000 mls @ 60 mls/hr IV .[id number] [facility] Last Admin: 03/02/18 05:53 Dose: 60 mls/hr Potassium Chloride (Potassium Chloride 20 Meq/100 Ml) 100 mls @ 50 mls/hr IV Q2H [facility] Stop: 03/02/18 11:59 Last Admin: 03/02/18 09:44 Dose: 50 mls/hr Metoprolol Tartrate (Lopressor) 100 mg PO BID [facility] Last Admin: 03/02/18 09:43 Dose: 100 mg Morphine Sulfate (Morphine Extended Release Tab) 30 mg PO Q12H [facility] Last Admin: 03/02/18 09:40 Dose: 30 mg Nitroglycerin (Nitrostat Sl Tab) 0.4 mg SL Q5M PRN PRN Reason: chest pain Ondansetron HCl (Zofran Inj) 4 mg IVP Q4H PRN PRN Reason: Nausea/Vomiting Last Admin: 03/02/18 05:56 Dose: 4 mg Pantoprazole Sodium (Protonix Inj) 40 mg IVP DAILY [facility] Last Admin: 03/02/18 09:41 Dose: 40 mg Potassium Chloride (K-Dur 20 Meq Er Tab) 30 meq PO BID [facility] Last Admin: 03/01/18 17:13 Dose: 30 meq Prasugrel (Effient) 10 mg PO DAILY [facility] Last Admin: 03/02/18 09:40 Dose: 10 mg Tamsulosin HCl (Flomax) 0.4 mg PO DAILY [facility] Last Admin: 03/02/18 09:40 Dose: 0.4 mg Tizanidine HCl (Zanaflex) 4 mg PO BID [facility] Last Admin: 03/02/18 09:41 Dose: 4 mg - Labs Labs: 03/02/18 06:30 03/02/18 06:30 PT 12.2 SECONDS (9.4-12.5) 03/01/18 07:45 INR 1.06 03/01/18 07:45 APTT 27.5 Seconds (25.1-36.5) 03/01/18 07:45 - Constitutional Appears: Cachectic, Chronically Ill, Other (uncomfortable) - Head Exam Head Exam: ATRAUMATIC, NORMAL INSPECTION - Eye Exam Eye Exam: EOMI. absent: Conjunctival injection, Scleral icterus - Respiratory Exam Respiratory Exam: NORMAL BREATHING PATTERN. absent: Accessory Muscle Use, Respiratory Distress - Cardiovascular Exam Cardiovascular Exam: Tachycardia, RRR - GI/Abdominal Exam GI & Abdominal Exam: Firm, Guarding, Rigid, Tenderness, Normal Bowel Sounds. absent: Bruit, Distended, Soft, Mass, Organomegaly Additional comments: vol guarding throughout on palpation limiting exam Assessment and Plan - Assessment and Plan (Free Text) Assessment: 52 yo male with extensive cardiac history of ischemic [employer]ER[employer], CAD s/p CABG and stenting, h/o gastric ulcer, anxiety, HTN presenting with N/V and Abd Pain. # Nausea/Vomiting and Abd Pain: Unclear etiology. CTA of Abd+Pelvis without findings to explain. Pt reports BMs, though decreased given minimal PO intake recently. No signs of active bleeding. Pt reports that N/V began first there fore wondering if abd pain more so related to chronic retching. Given h/o gastric ulcer, wondering if there is underlying stricture or obstruction. Plan: - Check Upper GI Series today to eval for stricture, obstruction, etc. - IV PPI daily - NPO for now --- OK to trial Clear Liq Diet post GI series today - Cardiology evaluation - Only consider EGD should symptoms persist/worsen --- Would need cardiac and anesthesia evaluation prior to any endoscopy evaluation as is high risk given extensive cardiac history - Consider Gen Surg consult of course worsens/decompensates - Agree with possible transfer to at [facility] when majority of care has been ongoing with cardiac transplant evaluation Pt discussed with Dr. Jaramillo. Please see attestation for further recs/changes.
[2018-03-02] MEDS: Potassium Chloride 20 mEq ER Tab PO SCH ×2 (11:17→18:10)
[2018-03-02] MEDS ORDERED: Barium Sulfate for Susp 96% w/w 176g Bottle PR ONE (14:23)
--- NOTE | 2018-03-02 15:00 | RAD ---
Date of service: 03/02/2018 HISTORY: Persistent N/V and abd pain COMPARISON: None. TECHNIQUE: Single contrast upper GI series was performed. FINDINGS: Patient tolerated procedure well. ESOPHAGUS: Esophageal mucosa appeared preserved. No evidence of stricture or mass lesion. STOMACH: Gastric mucosa appear preserved. No evidence of ulceration or mass lesion. DUODENUM: Duodenal bulb appear preserved without evidence of ulceration or mass lesion HIATAL HERNIA: None demonstrated. GASTROESOPHAGEAL REFLUX: Not demonstrated. OTHER FINDINGS: None. IMPRESSION: Unremarkable upper GI series
--- NOTE | 2018-03-02 19:10 | CP.PCM.PN ---
Subjective - Date & Time of Evaluation Date of Evaluation: 03/02/18 Time of Evaluation: 07:40 - Subjective Subjective: PGY-1 Medicine Progress Note for Dr. Guo Patient seen and examined at bedside. Patient had 1 episode of bilious vomiting earlier in the morning. Patient continues to complain of sharp epigastric abdominal pain, nausea. No fevers/chills, headaches, dizziness, chest pain, palpitations, sob, cough, diarrhea, constipation, dysuria, or changes in stool. Objective - Vital Signs/Intake and Output Vital Signs (last 24 hours): Temp Pulse Resp BP Pulse Ox 97.9 F 68 18 122/87 97 03/02/18 17:28 03/02/18 18:00 03/02/18 17:28 03/02/18 18:10 03/01/18 14:25 - Medications Medications: Current Medications Aspirin (Aspirin Chewable) 81 mg PO DAILY [facility] Last Admin: 03/02/18 09:41 Dose: 81 mg Atorvastatin Calcium (Lipitor) 80 mg PO DIN [facility] Last Admin: 03/02/18 18:10 Dose: 80 mg Ezetimibe (Zetia) 10 mg PO DAILY [facility] Last Admin: 03/02/18 09:41 Dose: 10 mg Enoxaparin Sodium (Lovenox) 40 mg SC Q12H [facility] Last Admin: 03/02/18 16:50 Dose: 40 mg Fenofibrate (Tricor) 145 mg PO DAILY [facility] Last Admin: 03/02/18 09:41 Dose: 145 mg Furosemide (Lasix) 20 mg PO BID [facility] Last Admin: 03/02/18 18:10 Dose: 20 mg Hydromorphone HCl (Dilaudid) 4 mg PO Q4H [facility] Last Admin: 03/02/18 16:50 Dose: Not Given Hydromorphone HCl (Dilaudid) 2 mg IVP Q2H PRN PRN Reason: Pain, severe (8-10) Last Admin: 03/02/18 16:50 Dose: 2 mg Metronidazole (Flagyl) 500 mg in 100 mls @ 100 mls/hr IVPB Q8 [facility]; Protocol Last Admin: 03/02/18 16:49 Dose: 100 mls/hr Ceftriaxone Sodium (Rocephin 1 Gram Ivpb) 1 gm in 100 mls @ 100 mls/hr IVPB DAILY [facility]; Protocol Last Admin: 03/02/18 09:40 Dose: 100 mls/hr Dextrose/Sodium Chloride (Dextrose 5%/0.45% Ns 1000 Ml) 1,000 mls @ 60 mls/hr IV .[id number] [facility] Last Admin: 03/02/18 05:53 Dose: 60 mls/hr Metoclopramide HCl (Reglan) 5 mg IVP ACHS PRN PRN Reason: Nausea/Vomiting Last Admin: 03/02/18 15:26 Dose: 5 mg Metoprolol Tartrate (Lopressor) 100 mg PO BID [facility] Last Admin: 03/02/18 18:10 Dose: 100 mg Morphine Sulfate (Morphine Extended Release Tab) 30 mg PO Q12H [facility] Last Admin: 03/02/18 09:40 Dose: 30 mg Nitroglycerin (Nitrostat Sl Tab) 0.4 mg SL Q5M PRN PRN Reason: chest pain Ondansetron HCl (Zofran Inj) 4 mg IVP Q4H PRN PRN Reason: Nausea/Vomiting Last Admin: 03/02/18 11:42 Dose: 4 mg Pantoprazole Sodium (Protonix Inj) 40 mg IVP DAILY [facility] Last Admin: 03/02/18 09:41 Dose: 40 mg Potassium Chloride (K-Dur 20 Meq Er Tab) 30 meq PO BID [facility] Last Admin: 03/02/18 18:10 Dose: 30 meq Prasugrel (Effient) 10 mg PO DAILY [facility] Last Admin: 03/02/18 09:40 Dose: 10 mg Tamsulosin HCl (Flomax) 0.4 mg PO DAILY [facility] Last Admin: 03/02/18 09:40 Dose: 0.4 mg Tizanidine HCl (Zanaflex) 4 mg PO BID [facility] Last Admin: 03/02/18 18:10 Dose: 4 mg - Labs Labs: 03/02/18 06:30 03/02/18 06:30 PT 12.2 SECONDS (9.4-12.5) 03/01/18 07:45 INR 1.06 03/01/18 07:45 APTT 27.5 Seconds (25.1-36.5) 03/01/18 07:45 - Constitutional Appears: Cachectic, Chronically Ill - Head Exam Head Exam: ATRAUMATIC, NORMAL INSPECTION, NORMOCEPHALIC - Eye Exam Eye Exam: EOMI, Normal appearance, PERRL - ENT Exam ENT Exam: Mucous Membranes Moist, Normal Exam - Neck Exam Neck Exam: Normal Inspection - Respiratory Exam Respiratory Exam: Clear to Ausculation Bilateral, NORMAL BREATHING PATTERN - Cardiovascular Exam Cardiovascular Exam: Tachycardia, +S1, +S2 - GI/Abdominal Exam GI & Abdominal Exam: Guarding, Tenderness, Normal Bowel Sounds Additional comments: voluntary guarding on palpation, TTP in all 4 quadrants - Extremities Exam Extremities Exam: Normal Capillary Refill, Normal Inspection. absent: Joint Swelling, Pedal Edema - Back Exam Back Exam: NORMAL INSPECTION - Neurological Exam Neurological Exam: Alert, Awake, Oriented x3 - Skin Skin Exam: Dry, Intact, Normal Color, Warm Assessment and Plan - Assessment and Plan (Free Text) Assessment: 52 yo male with extensive cardiac history of ischemic [employer], CAD s/p CABG and stenting, h/o gastric ulcer, anxiety, HTN presenting with N/V and Abd Pain. Plan: Abdominal pain --Abdominal CTA (03/01): no acute findings --upper GI series: no acute findings --CXR: no active disease --procal <0.05 --pt advanced to clear liquid diet --GI (Dr. Jaramillo) recs appreciated -upper GI series: no acute findings -trial clear liquid diet post GI series -only consider EGD if symptoms worsen -would need cardiac and anesthesia eval prior to endoscopy given extensive hx -consider Gen Surg consult if course worsens -agree with possible transfer to [place] where majority of care has been ongoing --Medications -Rocephin 1gm IVP Daily -Flagyl 500 mg IVP q8 -Dilaudid 4 mg PO q4h summer as per cardio -Dilaudid 2 mg IV q2h prn as per cardio -Zofran PRN -Protonix 40 mg IVP daily -D5 1/2 NS @ 60cc/hr Chest pain r/o ACS --troponins x3 negative --EKG NSR @ 84 bpm --f/u Echo --Cardiology (Dr. Paris) recs appreciated -consider transfer to [place] for further eval -complex pt that has physicians there who follow him and have him listed on cardiac transplant list -Pt's ICD also followed there -continue home medications -GI consult -potassium replenishment rigorously -I/Os -stool for occult blood CAD/CABG --Continue Lasix, Lopressor, Effient Hypokalemia --Repleted --KCl 30 meq PO BID daily --continue to monitor PPx, Diet, Disposition DVT: Lovenox GI: Protonix Diet: clear liquid diet Disposition: patient to be transferred to [facility], accepting physician is Dr. Vasquez; Emtala to be completed by inhouse provider. Case discussed with Dr. Sari Mortensen DO, PGY-1
[2018-03-02] MEDS ORDERED: metroNIDAZOLE IV 500 mg/100 ml 500 MG/100 ML BAG IVPB SCH (22:15)
[2018-03-03 00:58] VITALS: BP 110/73; PULSE 66; RESP 20; TEMP 97.5; O2SAT 95
--- NOTE | 2018-03-03 07:35 | CARD ---
APPROVED REPORT Date of service: 03/02/2018 EXAM: Two-dimensional and M-mode echocardiogram with Doppler and color Doppler. INDICATION Chest Pain 2D DIMENSIONS Left Atrium (2D)3.5 (1.6-4.0cm)IVSd1.2 (0.7-1.1cm) LVDd5.0 (3.9-5.9cm)PWd1.2 (0.7-1.1cm) LVDs4.3 (2.5-4.0cm)FS (%) 13.4 % LVEF (%)28.8 (>50%) M-Mode DIMENSIONS Aortic Root3.40 (2.2-3.7cm)Aortic Cusp Exc.2.20 (1.5-2.0cm) Aortic Valve AoV Peak Pssmclsl957.0cm/Jammie Peak GR.4mmHg Mitral Valve E/A ratio0.0 TDI E/Lateral E'0.0E/Medial E'0.0 Tricuspid Valve TR Peak [id number] Peak Gr.24mmHg [id number] LEFT VENTRICLE The left ventricle is normal size. There is mild concentric left ventricular hypertrophy. The systolic function is moderately to severely impaired. There is global hypokinesis of the left ventricle. There is severe hypokinesis of the inferior wall. A false chord is noted (normal variant). RIGHT VENTRICLE The right ventricle is normal size. There is an ICD lead in the right ventricle. ATRIA The left atrium size is normal. The right atrium size is normal. The interatrial septum is intact with no evidence for an atrial septal defect. AORTIC VALVE The aortic valve is normal in structure. There is trace to mild aortic regurgitation. There is no aortic valvular stenosis. MITRAL VALVE The mitral valve is mildly thickened. Mitral regurgitation is moderate. TRICUSPID VALVE The tricuspid valve is normal in structure. There is moderate tricuspid regurgitation. PULMONIC VALVE There is mild pulmonic valvular regurgitation. GREAT VESSELS The aortic root is normal in size. The IVC is normal in size and collapses >50% with inspiration. PERICARDIAL EFFUSION There is no pleural effusion. There is no pericardial effusion. <Conclusion> Normal chamber size. Moderate to severely reduced LV systolic function with global hypokinesis and severe inferior hypokinesis. Moderate MR and TR.
== END 2018-03-02 12:50 | disposition short-term general hospital (02) | DRG 392 ==
LOC: ED 07:20 → ERH 11:30 → 2RSO 14:25
PROVIDERS: ADMIT Internal Medicine; ATTEND Internal Medicine
DX: R11.14 Bilious vomiting (principal); R64 Cachexia; Z68.1 Body mass index [BMI] 19.9 or less, adult; R10.13 Epigastric pain; E87.6 Hypokalemia; K21.9 Gastro-esophageal reflux disease without esophagitis; I25.5 Ischemic cardiomyopathy; K57.90 Diverticulosis of intestine, part unspecified, without perforation or abscess without bleeding; I11.0 Hypertensive heart disease with heart failure; I50.9 Heart failure, unspecified; R62.7 Adult failure to thrive; I25.10 Atherosclerotic heart disease of native coronary artery without angina pectoris; J44.9 Chronic obstructive pulmonary disease, unspecified; F41.9 Anxiety disorder, unspecified; F31.9 Bipolar disorder, unspecified; M54.9 Dorsalgia, unspecified; E78.5 Hyperlipidemia, unspecified; G89.29 Other chronic pain; Z76.82 Awaiting organ transplant status; I25.2 Old myocardial infarction; Z95.1 Presence of aortocoronary bypass graft; Z87.11 Personal history of peptic ulcer disease; Z95.810 Presence of automatic (implantable) cardiac defibrillator; Z87.891 Personal history of nicotine dependence; Z95.5 Presence of coronary angioplasty implant and graft; Z74.01 Bed confinement status